=== PATIENT | female | born 1930 | race Caucasian/White ===

== ENCOUNTER → 2016-11-06 | Outpatient (CLI) | payer MEDICARE, BC ==
--- NOTE | 2016-11-06 15:46 | NM ---
EXAMINATION TYPE: NM bone scan whole body DATE OF EXAM: 11/06/2016 COMPARISON: NONE HISTORY: Left knee pain Delayed whole-body scanning was performed following the injection of 26.2 mCi Tc 99m MDP. Images wer e acquired 3 hours post injection. FINDINGS: There is diffuse increased radiotracer at the left knee. There is increased uptake within the bilateral shoulders compatible with degenerative change. Mild in creased uptake is at the wrist compatible with degenerative change. Degenerative changes also noted i n the scoliotic lumbar spine on the posterior right L1 and L3 region vertebral levels. IMPRESSION: 1. Increased uptake at the left knee can be compatible with degenerative change on infection posttrau matic changes. Correlation with plain films is recommended. There are no plain films of the left knee available at this location. 2. Probable degenerative changes bilateral shoulders and bilateral wrists.
== END | disposition home or self-care (01) ==
LOC: RADNMMAIN 09:43
PROVIDERS: ATTEND Orthopaedic Surgery
DX: M17.12 Unilateral primary osteoarthritis, left knee (principal); M21.062 Valgus deformity, not elsewhere classified, left knee; M19.012 Primary osteoarthritis, left shoulder
CPT/HCPCS: 78306; A9503

== ENCOUNTER → 2017-02-03 | Outpatient (CLI) | payer MEDICARE, BC ==
--- NOTE | 2017-02-03 14:18 | XR ---
EXAMINATION TYPE: XR pelvis AP view DATE OF EXAM: 02/03/2017 COMPARISON: NONE HISTORY: Groin pain history of multiple falls TECHNIQUE: AP pelvis FINDINGS: Femoral heads articulate with the acetabulum. No acute displaced fractures are evident. Deg enerative changes are within the lumbar spine. There is attempted sacralization of L5 on the right. IMPRESSION: 1. No acute osseous abnormality.
--- NOTE | 2017-02-03 15:17 | BD ---
EXAMINATION TYPE: MG DEXA axial skeleton. DATE OF EXAM: 02/03/2017 CLINICAL HISTORY: Abnormal x-ray. Post menopausal female. Height: 59 inches Weight: 143 FRAX RISK QUESTIONS: Alcohol (3 or more units per day): no Family History (Parent hip fracture): no Glucocorticoids (More than 3mos): no (Ex: prednisone, prednisolone, methylprednisolone, dexamethasone, and hydrocortisone). History of Fracture in Adulthood: no Secondary Osteoporosis: 1. Type 1 Diabetes: no 2. Hyperthyroidism: no 3. Menopause before 45: no, late 40's 4. Malnutrition: no 5. Chronic liver disease: no Rheumatoid Arthritis: no Current Tobacco Use: no RISK FACTORS HISTORY OF: Family History of Osteoporosis: unsure Active: somewhat-uses walker Diet low in dairy products/other sources of calcium: no Postmenopausal woman: yes Take estrogen and/or progesterone medications: not now How long: unsure Lost more than 2 inches in height since high school: yes Frequent falls: yes Poor Health: no Hyperparathyroidism: no Adrenal Insufficiency: no MEDICATIONS: Prednisone or other steroids: no Thyroid Medications: no Osteoporosis Medications: no Additional Medications: Omeprazole, MiraLax, VitaminD, Centrum, Amitriptyline HCl, Valsartan, Oxycodo ne-Acetaminophen, Metroprolol Succinate, Amlodipine Additional History: pelvic pain- pubic symphysis? arthritis, spinal stenosis lumbosacral region EXAM MEASUREMENTS: Bone mineral densitometry was performed using the [employer] System. Bone mineral density as measured about the Lumbar spine is: ----- L1-L4(G/cm2): 1.305 T Score Values are as follows: ----- L2: 1.0 ----- L3: 1.1 ----- L4: 0.4 ----- L1-L4: 1.0 Bone mineral density not previously done at this facility; previously done in [place] Bone mineral density about the R hip (g/cm2): 0.774 Bone mineral density about the L hip (g/cm2): 0.679 T Score values are as follows: -----R Neck: -1.9 -----L Neck: -2.6 -----R Total: -1.3 -----L Total: -1.9 Bone mineral density not previously done at this facility; previously done in [place] IMPRESSION: 1. Osteoporosis (T Score less than -2.5) as noted by T Score values with regards to the left hip There is increased fracture risk and therapy is usually indicated based on age. Re-Screen 1-2 years. 2. Osteopenia (T Score between -2.5 and -1 ) as noted by T score values with regards to the right hip . There is slightly increased risk of fracture and the patient may be considered for treatment. Re-Screen 2-5 years. NOTE: T-SCORE=SD OF THE YOUNG ADULT MEAN.
== END | disposition home or self-care (01) ==
LOC: RADBDWWP 13:01
PROVIDERS: ATTEND Family Medicine
DX: M85.88 Other specified disorders of bone density and structure, other site (principal); M81.0 Age-related osteoporosis without current pathological fracture; R10.2 Pelvic and perineal pain; Z88.0 Allergy status to penicillin; Z88.1 Allergy status to other antibiotic agents; Z88.2 Allergy status to sulfonamides; Z88.4 Allergy status to anesthetic agent; Z88.8 Allergy status to other drugs, medicaments and biological substances; Z91.041 Radiographic dye allergy status; Z91.048 Other nonmedicinal substance allergy status
CPT/HCPCS: 72170; 77080

== ENCOUNTER → 2020-07-19 | Outpatient (CLI) | payer MEDICARE, BC ==
[2020-07-19 22:51] LABS: Basophils # (A) 0.06 X 10*3/uL (0.00-0.10); Basophils % (A) 0.9 %; Eosinophils # (A) 0.06 X 10*3/uL (0.04-0.35); Eosinophils % (A) 0.9 %; HCT 33.5 % (37.2-46.3); HGB 10.2 g/dL (12.0-15.0); Lymphocytes # (A) 2.69 X 10*3/uL (0.90-5.00); Lymphocytes % (A) 39.9 %; MCH 27.2 pg (27.0-32.0); MCHC 30.4 g/dL (32.0-37.0); MCV 89.3 fL (80.0-97.0); Monocytes # (A) 0.37 X 10*3/uL (0.20-1.00); Monocytes % (A) 5.5 %; Neutrophils # (A) 3.53 X 10*3/uL (1.80-7.70); Neutrophils % (A) 52.4 %; Platelet Count 376 X 10*3/uL (140-440); RBC 3.75 X 10*6/uL (4.10-5.20); RDW 21.2 % (11.5-14.5); WBC 6.74 X 10*3/uL (4.50-10.00)
[2020-07-20 01:51] LABS: % Iron Saturation 38.15 (12.00-45.00)
[2020-07-20 02:45] LABS: Ferritin 314.8 ng/mL (10.0-291.0)
== END | disposition home or self-care (01) ==
LOC: LABWHC1 12:25
PROVIDERS: ATTEND Family Medicine
DX: D64.9 Anemia, unspecified (principal)
CPT/HCPCS: 36415; 82728; 83540; 83550; 85025

== ENCOUNTER 2020-09-09 16:10 | Emergency (ER) | payer MEDICARE, BC ==
[2020-09-09] MEDS ORDERED: ACETAMINOPHEN TAB 500 MG TAB PO STA (17:23)
[2020-09-09] MEDS ORDERED: IBUPROFEN 400 MG TAB PO STA (17:24)
[2020-09-09] MEDS ORDERED: SODIUM CHLORIDE 0.9% 500 ML 500 ML IV STA ×2 (17:25→18:18)
[2020-09-09 17:46] LABS: Basophils % (A) 1 %; Eosinophils % (A) 0 %; HCT 32.6 % (34.0-46.0); HGB 11.2 gm/dL (11.4-16.0); Lymphocytes % (A) 37 %; MCH 30.6 pg (25.0-35.0); MCHC 34.4 g/dL (31.0-37.0); MCV 88.8 fL (80.0-100.0); Mean Platelet Volume 7.6; Monocytes # (A) 0.2 k/uL (0-1.0); Monocytes % (A) 6 %; Neutrophils # (A) 1.3 k/uL (1.3-7.7); Neutrophils % (A) 53 %; Platelet Count 223 k/uL (150-450); RBC 3.67 m/uL (3.80-5.40); WBC 2.5 k/uL (3.8-10.6)
[2020-09-09 17:59] LABS: Partial Thromboplastin Time 24.8 sec (22.0-30.0); Prothrombin Time 10.6 sec (9.0-12.0)
[2020-09-09 18:04] LABS: ALT 15 U/L (4-34); AST 25 U/L (14-36); African American GFR (CKD) >90 (>60 ml/min/1.73 sqM); Albumin 4.6 g/dL (3.5-5.0); Alkaline Phosphatase 66 U/L (38-126); Anion Gap 13 mmol/L; Blood Urea Nitrogen 15 mg/dL (7-17); Calcium 9.1 mg/dL (8.4-10.2); Carbon Dioxide 28 mmol/L (22-30); Chloride 89 mmol/L (98-107); Glucose 162 mg/dL (74-99); LDH 523 U/L (313-618); Magnesium 1.4 mg/dL (1.6-2.3); Non-African American GFR(CKD) 89 (>60 ml/min/1.73 sqM); Potassium 3.5 mmol/L (3.5-5.1); Sodium 130 mmol/L (137-145); Total Bilirubin 0.4 mg/dL (0.2-1.3); Total Protein 7.4 g/dL (6.3-8.2)
--- NOTE | 2020-09-09 18:10 | XR ---
EXAMINATION TYPE: XR chest 1V portable DATE OF EXAM: 09/09/2020 COMPARISON: NONE HISTORY: Short of breath TECHNIQUE: Single view FINDINGS: Heart is normal. Lungs are clear of infiltrate. There is no heart failure. There are no hil ar masses. Costophrenic angles are fairly clear. Bony thorax is intact. There is moderate arthritic c hange in the shoulder joints bilaterally. IMPRESSION: No active cardiopulmonary disease. Minimal pulmonary fibrotic changes.
--- NOTE | 2020-09-09 18:22 | ED ---
URI HPI - General Chief Complaint: Upper Respiratory Infection Stated Complaint: Cough, congestion Time Seen by Provider: 09/09/20 17:02 Source: patient Mode of arrival: ambulatory Limitations: no limitations - History of Present Illness Initial Comments: Patient is an 89-year-old female with history of hypertension, presenting to the emergency Department with concerns of cough and congestion for the past 4 days. She denies any chest pains or shortness of breath. She denies any nausea or vomiting or abdominal pain. She states her appetite has been low but she has been trying to drink water. She denies history of asthma or COPD. She states she feels like the cough seems to be getting a little bit worse and she felt like she might have a fever today so she wanted to be seen. She did not take any Tylenol or Motrin today. She has no further complaints at this time. Upon arrival to the ER, she is febrile to 101.4, tachycardia at 118, 97% on room air. - Related Data Home Medications Medication Instructions Recorded Confirmed Amitriptyline HCl 4 tab PO DAILY 06/08/20 06/16/20 Ergocalciferol (Vitamin D2) 1 tab PO WEEKLY 06/08/20 06/16/20 [Drisdol] Losartan Potassium 1 tab PO DAILY 06/08/20 06/16/20 Meclizine HCl 1 tab PO DIRECTED PRN 06/08/20 06/16/20 Metoprolol Succinate (ER) [Toprol 12.5 mg PO DAILY 06/08/20 06/16/20 XL] Omeprazole 1 tab PO DAILY 06/08/20 06/16/20 amLODIPine [Norvasc] 1 tab PO DAILY 06/08/20 06/16/20 oxyCODONE-APAP 7.5-325MG [Percocet 1 tab PO QID PRN 06/08/20 06/16/20 7.5-325 mg] polyethylene glycoL 3350 [Miralax] 1 pkg PO DIRECTED PRN 06/08/20 06/16/20 Previous Rx's Medication Instructions Recorded Dexamethasone [Decadron] 6 mg PO DAILY 5 Days #5 tablet 09/09/20 Ondansetron Odt [Zofran Odt] 4 mg PO Q8HR PRN #10 tab 09/09/20 Allergies Allergy/AdvReac Type Severity Reaction Status Date / Time cephalexin [From Keflex] Allergy Itching Verified 09/09/20 16:16 hydrochlorothiazide Allergy Unknown Verified 09/09/20 16:16 iodine Allergy Unknown Verified 09/09/20 16:16 nystatin Allergy Rash/Hives Verified 09/09/20 16:16 Penicillins Allergy Swelling Verified 09/09/20 16:16 pregabalin [From Lyrica] Allergy Unknown Verified 09/09/20 16:16 ropinirole [From Requip] Allergy Unknown Verified 09/09/20 16:16 sulfamethoxazole Allergy Unknown Verified 09/09/20 16:16 [From Bactrim] triamcinolone [From Kenalog] Allergy Rash/Hives Verified 09/09/20 16:16 trimethoprim [From Bactrim] Allergy Unknown Verified 09/09/20 16:16 clindamycin AdvReac Diarrhea Verified 06/16/20 09:58 simvastatin [From Zocor] AdvReac Unknown Verified 06/16/20 09:58 Review of Systems ROS Statement: Those systems with pertinent positive or pertinent negative responses have been documented in the HPI. ROS Other: All systems not noted in ROS Statement are negative. Past Medical History Past Medical History: Hyperlipidemia, Hypertension, Osteoarthritis (OA) Past Surgical History: No Surgical Hx Reported Past Psychological History: No Psychological Hx Reported Smoking Status: Never smoker General Exam - General Exam Comments Initial Comments: GENERAL: Patient is well-developed and well-nourished. Patient is nontoxic and in no acute distress. HEAD: Atraumatic, normocephalic. EYES: Pupils equal round and reactive to light, extraocular movements intact, sclera anicteric, conjunctiva are normal. Eyelids were unremarkable. ENT: TMs normal, nares patent, oropharynx clear without exudates. Moist mucous membranes. NECK: Normal range of motion, supple without lymphadenopathy or JVD. LUNGS: Unlabored respirations. Breath sounds clear to auscultation bilaterally and equal. No wheezes rales or rhonchi. HEART: Tachycardia rate and rhythm without murmurs, rubs or gallops. ABDOMEN: Soft, nontender, normoactive bowel sounds. No guarding, no rebound. No masses appreciated. : Deferred MUSCULOSKELETAL: Normal extremities with adequate strength and normal range of motion, no pitting or edema. No clubbing or cyanosis. NEUROLOGICAL: Patient is alert and oriented x 3. Motor and sensory are also intact. Cranial nerves II through XII grossly intact. Symmetrical smile. Normal speech, normal gait. PSYCH: Normal mood, normal affect. SKIN: Warm, Dry, normal turgor, no rashes or lesions noted. Limitations: no limitations Course Vital Signs 09/09/20 09/09/20 09/09/20 16:12 19:14 20:09 Temperature 101.4 F H 98.7 F 99.3 F Pulse Rate 118 H 104 H 90 Respiratory 24 18 18 Rate Blood Pressure 159/89 180/93 160/79 O2 Sat by Pulse 97 98 97 Oximetry Medical Decision Making - Medical Decision Making Patient is an 89-year-old female here with cough and congestion for the past 4 days, concern for Covid. She did arrive febrile and tachycardia, 97% on room air. She denies any chest pain or shortness of breath. Chest x-ray shows no a cute process, minimal pulmonary fibrotic changes. Labs show a white count of 2.5, sodium was low at 130, lactic acid is 2.1, rapid Covid test is positive. Patient given Tylenol, Motrin and 1 L fluids, as well as PO magnesium. Patient does meet criteria for Covid antiviral therapy. Patient had no adverse side effects. Patient is stable for discharge. I will send her home with a prescription for steroids and Zofran for any additional nausea. She is in agreement with this plan of care. Strict return parameters were discussed with the patient she verbalized understanding. Case discussed with Dr. Valiente. - Lab Data Result diagrams: 09/09/20 17:31 09/09/20 17:31 Lab Results 09/09/20 09/09/20 09/09/20 Range/Units 17:03 17:31 17:31 WBC 2.5 L (3.8-10.6) k/uL RBC 3.67 L (3.80-5.40) m/uL Hgb 11.2 L (11.4-16.0) gm/dL Hct 32.6 L (34.0-46.0) % MCV 88.8 (80.0-100.0) fL MCH 30.6 (25.0-35.0) pg MCHC 34.4 (31.0-37.0) g/dL RDW 15.0 (11.5-15.5) % Plt Count 223 (150-450) k/uL MPV 7.6 Neutrophils % 53 % Lymphocytes % 37 % Monocytes % 6 % Eosinophils % 0 % Basophils % 1 % Neutrophils # 1.3 (1.3-7.7) k/uL Lymphocytes # 1.0 (1.0-4.8) k/uL Monocytes # 0.2 (0-1.0) k/uL Eosinophils # 0.0 (0-0.7) k/uL Basophils # 0.0 (0-0.2) k/uL PT 10.6 (9.0-12.0) sec INR 1.0 (<1.2) APTT 24.8 (22.0-30.0) sec Sodium (137-145) mmol/L Potassium (3.5-5.1) mmol/L Chloride (98-107) mmol/L Carbon Dioxide (22-30) mmol/L Anion Gap mmol/L BUN (7-17) mg/dL Creatinine (0.52-1.04) mg/dL Est GFR (CKD-EPI)AfAm (>60 ml/min/1.73 sqM) Est GFR (CKD-EPI)NonAf (>60 ml/min/1.73 sqM) Glucose (74-99) mg/dL Lactic Ac Sepsis Rflx Plasma Lactic Acid Peterson (0.7-2.0) mmol/L Calcium (8.4-10.2) mg/dL Magnesium (1.6-2.3) mg/dL Total Bilirubin (0.2-1.3) mg/dL AST (14-36) U/L ALT (4-34) U/L Alkaline Phosphatase (38-126) U/L Lactate Dehydrogenase (313-618) U/L C-Reactive Protein (<10.0) mg/L Total Protein (6.3-8.2) g/dL Albumin (3.5-5.0) g/dL Coronavirus (PCR) Detected A (Not Detectd) 09/09/20 09/09/20 09/09/20 Range/Units 17:31 17:31 18:13 WBC (3.8-10.6) k/uL RBC (3.80-5.40) m/uL Hgb (11.4-16.0) gm/dL Hct (34.0-46.0) % MCV (80.0-100.0) fL MCH (25.0-35.0) pg MCHC (31.0-37.0) g/dL RDW (11.5-15.5) % Plt Count (150-450) k/uL MPV Neutrophils % % Lymphocytes % % Monocytes % % Eosinophils % % Basophils % % Neutrophils # (1.3-7.7) k/uL Lymphocytes # (1.0-4.8) k/uL Monocytes # (0-1.0) k/uL Eosinophils # (0-0.7) k/uL Basophils # (0-0.2) k/uL PT (9.0-12.0) sec INR (<1.2) APTT (22.0-30.0) sec Sodium 130 L (137-145) mmol/L Potassium 3.5 (3.5-5.1) mmol/L Chloride 89 L (98-107) mmol/L Carbon Dioxide 28 (22-30) mmol/L Anion Gap 13 mmol/L BUN 15 (7-17) mg/dL Creatinine 0.46 L (0.52-1.04) mg/dL Est GFR (CKD-EPI)AfAm >90 (>60 ml/min/1.73 sqM) Est GFR (CKD-EPI)NonAf 89 (>60 ml/min/1.73 sqM) Glucose 162 H (74-99) mg/dL Lactic Ac Sepsis Rflx Y Plasma Lactic Acid Peterson 2.1 H* (0.7-2.0) mmol/L Calcium 9.1 (8.4-10.2) mg/dL Magnesium 1.4 L (1.6-2.3) mg/dL Total Bilirubin 0.4 (0.2-1.3) mg/dL AST 25 (14-36) U/L ALT 15 (4-34) U/L Alkaline Phosphatase 66 (38-126) U/L Lactate Dehydrogenase 523 (313-618) U/L C-Reactive Protein 10.0 H (<10.0) mg/L Total Protein 7.4 (6.3-8.2) g/dL Albumin 4.6 (3.5-5.0) g/dL Coronavirus (PCR) (Not Detectd) Disposition Clinical Impression: COVID-19, Dehydration Disposition: HOME SELF-CARE Condition: Stable Instructions (If sedation given, give patient instructions): Coronavirus Disease 2019 (COVID-19) Additional Instructions: Please return to the Emergency Department if symptoms worsen or any other concerns. Continue to increase fluid intake. Recommend alternating between Tylenol and Motrin for fever control. May take Zofran for any additional nausea. Take steriods as prescribed. Follow-up with your regular doctor. Prescriptions: Dexamethasone [Decadron] 6 mg PO DAILY 5 Days #5 tablet Ondansetron Odt [Zofran Odt] 4 mg PO Q8HR PRN #10 tab PRN Reason: Nausea Is patient prescribed a controlled substance at d/c from ED?: No Referrals: Mikhail Lewis III, MD [Primary Care Provider] - 1-2 days
[2020-09-09] MEDS ORDERED: BAMLANIVIMAB (EUA) 700 MG, ETESEVIMAB (EUA) 1,400 MG in SODIUM CHLORIDE 0.9% 50 ML IVPB ONE (18:30)
[2020-09-09] MEDS ORDERED: MAGNESIUM OXIDE 400 MG TAB PO STA (18:46)
[2020-09-09 19:16] VITALS: RESP 18
[2020-09-09 20:11] VITALS: BP 160/79; PULSE 90; TEMP 99.3
== END 2020-09-09 21:06 | disposition home or self-care (01) ==
LOC: EC 16:10
DX: U07.1 COVID-19 (principal); E86.0 Dehydration; E78.5 Hyperlipidemia, unspecified; I10 Essential (primary) hypertension; M19.90 Unspecified osteoarthritis, unspecified site; Z88.0 Allergy status to penicillin
CPT/HCPCS: 36415; 80053; 83605; 83615; 83735; 85025; 85610; 85730; 86140; 87040; 87635; 71045; 99283; 96365; Q0245

== ENCOUNTER 2020-09-18 17:23 | Inpatient (IN) | payer MEDICARE, BC ==
[2020-09-18] MEDS ORDERED: SODIUM CHLORIDE 0.9% 1,000 ML IV STA (18:05)
[2020-09-18] MEDS ORDERED: DICYCLOMINE 10 MG/ML 2 ML AMP IM STA (18:06)
--- NOTE | 2020-09-18 18:08 | ED ---
General Adult HPI - General Chief complaint: Nausea/Vomiting/Diarrhea Stated complaint: Weakness Time Seen by Provider: 09/18/20 17:32 Source: patient, EMS, RN notes reviewed Mode of arrival: EMS Limitations: no limitations - History of Present Illness Initial comments: Patient is a pleasant 89-year-old female presenting to the emergency department complaints of diarrhea. Patient states she did have corneal virus infection a couple weeks ago and other symptoms seem to be improving. No fever. Patient states she is having diarrhea at least 5 or 6 times per day. He should states there was one time she had an accident. Patient is feeling dehydrated. A cruz has occasional abdominal cramping with diarrhea. No vomiting. Patient does not recall recent antibiotic use. - Related Data Home Medications Medication Instructions Recorded Confirmed Amitriptyline HCl 40 tab PO HS 06/08/20 09/18/20 Ergocalciferol (Vitamin D2) 1,250 mcg PO Q7D 06/08/20 09/18/20 [Drisdol] Losartan Potassium 50 tab PO DAILY 06/08/20 09/18/20 Metoprolol Succinate (ER) [Toprol 12.5 mg PO DAILY 06/08/20 09/18/20 XL] Omeprazole 1 tab PO DAILY 06/08/20 09/18/20 amLODIPine [Norvasc] 5 tab PO DAILY 06/08/20 09/18/20 oxyCODONE-APAP 7.5-325MG [Percocet 1 tab PO QID PRN 06/08/20 09/18/20 7.5-325 mg] Ferrous Sulfate [Iron (65 MG 325 mg PO BID 09/18/20 09/18/20 Elemental)] Allergies Allergy/AdvReac Type Severity Reaction Status Date / Time cephalexin [From Keflex] Allergy Itching Verified 09/18/20 18:18 hydrochlorothiazide Allergy Dizziness Verified 09/18/20 18:18 iodine Allergy Unknown Verified 09/18/20 18:18 nystatin Allergy Rash/Hives Verified 09/18/20 18:18 Penicillins Allergy Swelling Verified 09/18/20 18:18 pregabalin [From Lyrica] Allergy Blurred Verified 09/18/20 18:18 Vision ropinirole [From Requip] Allergy Dizziness Verified 09/18/20 18:18 sulfamethoxazole Allergy Unknown Verified 09/18/20 18:18 [From Bactrim] triamcinolone [From Kenalog] Allergy Rash/Hives Verified 09/18/20 18:18 trimethoprim [From Bactrim] Allergy Unknown Verified 09/18/20 18:18 clindamycin AdvReac Diarrhea Verified 09/18/20 18:18 simvastatin [From Zocor] AdvReac Muscle Pain Verified 09/18/20 18:18 Review of Systems ROS Statement: Those systems with pertinent positive or pertinent negative responses have been documented in the HPI. ROS Other: All systems not noted in ROS Statement are negative. Constitutional: Denies: fever Eyes: Denies: eye pain ENT: Denies: ear pain Respiratory: Denies: cough, dyspnea Cardiovascular: Denies: chest pain Endocrine: Denies: fatigue Gastrointestinal: Reports: as per HPI, diarrhea. Denies: nausea, vomiting Genitourinary: Denies: dysuria Musculoskeletal: Denies: back pain Skin: Denies: rash Neurological: Denies: weakness Past Medical History Past Medical History: Hyperlipidemia, Hypertension, Osteoarthritis (OA) History of Any Multi-Drug Resistant Organisms: None Reported Past Surgical History: No Surgical Hx Reported Past Psychological History: No Psychological Hx Reported Smoking Status: Never smoker Past Alcohol Use History: None Reported Past Drug Use History: None Reported General Exam Limitations: no limitations General appearance: alert, in no apparent distress Head exam: Present: normocephalic Eye exam: Present: normal appearance Neck exam: Present: normal inspection Respiratory exam: Present: normal lung sounds bilaterally Cardiovascular Exam: Present: tachycardia GI/Abdominal exam: Present: soft, normal bowel sounds. Absent: tenderness, pulsatile mass Extremities exam: Present: normal inspection Neurological exam: Present: alert Psychiatric exam: Present: normal affect, normal mood Skin exam: Present: normal color Course Vital Signs 09/18/20 09/18/20 09/18/20 17:28 17:39 19:32 Temperature 98.1 F Pulse Rate 124 H 116 H 120 H Respiratory 18 18 18 Rate Blood Pressure 125/71 135/90 145/89 O2 Sat by Pulse 97 97 97 Oximetry Medical Decision Making - Medical Decision Making Family is concerned regarding patient having some generalized weakness. Patient does have some evidence of dehydration. There is elevation of white blood cell count. Patient remains tachycardic. Case was discussed with Dr. kelly, who will admit covering for Dr. Lewis. He does request stool studies and C. diff. IV fluids will be continued on repeat labs in the morning. Abdomen remained soft and nontender Dr. kelly agrees with holding on computed tomography scan at this time. - Lab Data Result diagrams: 09/18/20 18:07 09/18/20 18:07 Lab Results 09/18/20 09/18/20 Range/Units 18:07 18:07 WBC 22.5 H (3.8-10.6) k/uL RBC 3.28 L (3.80-5.40) m/uL Hgb 9.6 L D (11.4-16.0) gm/dL Hct 30.5 L (34.0-46.0) % MCV 93.0 (80.0-100.0) fL MCH 29.2 (25.0-35.0) pg MCHC 31.4 (31.0-37.0) g/dL RDW 16.7 H (11.5-15.5) % Plt Count 501 H D (150-450) k/uL MPV 8.1 Neutrophils % 92 % Lymphocytes % 2 % Monocytes % 4 % Eosinophils % 0 % Basophils % 1 % Neutrophils # 20.6 H (1.3-7.7) k/uL Lymphocytes # 0.5 L (1.0-4.8) k/uL Monocytes # 1.0 (0-1.0) k/uL Eosinophils # 0.0 (0-0.7) k/uL Basophils # 0.2 (0-0.2) k/uL Hypochromasia Slight Anisocytosis Slight Sodium 128 L (137-145) mmol/L Potassium 4.1 (3.5-5.1) mmol/L Chloride 93 L (98-107) mmol/L Carbon Dioxide 21 L (22-30) mmol/L Anion Gap 14 mmol/L BUN 16 (7-17) mg/dL Creatinine 0.43 L (0.52-1.04) mg/dL Est GFR (CKD-EPI)AfAm >90 (>60 ml/min/1.73 sqM) Est GFR (CKD-EPI)NonAf >90 (>60 ml/min/1.73 sqM) Glucose 167 H (74-99) mg/dL Calcium 9.1 (8.4-10.2) mg/dL Total Bilirubin 0.8 (0.2-1.3) mg/dL AST 29 (14-36) U/L ALT 27 (4-34) U/L Alkaline Phosphatase 92 (38-126) U/L Total Protein 6.5 (6.3-8.2) g/dL Albumin 3.8 (3.5-5.0) g/dL Disposition Clinical Impression: Dehydration, COVID-19, Diarrhea Disposition: ADMITTED IP TO THIS HOSP Is patient prescribed a controlled substance at d/c from ED?: No Referrals: Mikhail Lewis III, MD [Primary Care Provider] - 1-2 days Decision Time: 20:49
[2020-09-18 18:42] LABS: ALT 27 U/L (4-34); AST 29 U/L (14-36); African American GFR (CKD) >90 (>60 ml/min/1.73 sqM); Albumin 3.8 g/dL (3.5-5.0); Alkaline Phosphatase 92 U/L (38-126); Anion Gap 14 mmol/L; Blood Urea Nitrogen 16 mg/dL (7-17); Calcium 9.1 mg/dL (8.4-10.2); Carbon Dioxide 21 mmol/L (22-30); Chloride 93 mmol/L (98-107); Glucose 167 mg/dL (74-99); Non-African American GFR(CKD) >90 (>60 ml/min/1.73 sqM); Potassium 4.1 mmol/L (3.5-5.1); Sodium 128 mmol/L (137-145); Total Bilirubin 0.8 mg/dL (0.2-1.3); Total Protein 6.5 g/dL (6.3-8.2)
[2020-09-18 18:47] LABS: Anisocytosis Slight; Basophils # (A) 0.2 k/uL (0-0.2); Basophils % (A) 1 %; Eosinophils % (A) 0 %; HCT 30.5 % (34.0-46.0); Hypochromasia Slight; Lymphocytes # (A) 0.5 k/uL (1.0-4.8); Lymphocytes % (A) 2 %; MCH 29.2 pg (25.0-35.0); MCHC 31.4 g/dL (31.0-37.0); Mean Platelet Volume 8.1; Monocytes % (A) 4 %; Neutrophils # (A) 20.6 k/uL (1.3-7.7); Neutrophils % (A) 92 %; RBC 3.28 m/uL (3.80-5.40); RDW 16.7 % (11.5-15.5); WBC 22.5 k/uL (3.8-10.6)
[2020-09-18 18:50] LABS: HGB 9.6 gm/dL (11.4-16.0); Platelet Count 501 k/uL (150-450)
[2020-09-18] MEDS ORDERED: NALOXONE 0.4 MG/ML 1 ML VIAL IV PRN (20:49)
[2020-09-18] MEDS ORDERED: SODIUM CHLORIDE 0.9% 1,000 ML IV SCH (21:00)
[2020-09-18] MEDS: FAMOTIDINE 20 MG TAB PO SCH (22:01)
[2020-09-18] MEDS ORDERED: MORPHINE SULFATE 2 MG/ML SYRINGE IVP PRN (22:30)
[2020-09-18] MEDS ORDERED: oxyCODONE-APAP 7.5-325MG 1 EACH TAB PO PRN (22:31)
[2020-09-18] MEDS ORDERED: LEVOFLOXACIN 500MG-D5W PMX 500 MG in DEXTROSE/WATER 1 100ML.BAG IVPB SCH (23:00)
[2020-09-18] MEDS: PANTOPRAZOLE 40 MG/10 ML VIAL IVP SCH (23:14)
--- NOTE | 2020-09-18 23:58 | CT ---
EXAMINATION TYPE: CT abdomen pelvis wo con DATE OF EXAM: 09/18/2020 COMPARISON: None HISTORY: abdominal pain and dehydration. no prior on PACS CT DLP: 466 mGycm Automated exposure control for dose reduction was used. There is some patchy infiltrates in the subpleural lower lobes bilaterally. There is no pleural effus ion. There is moderate hiatal hernia. Heart size is normal. There is no pericardial effusion. There is small calcified granuloma in the liver. There are small calcified gallstones. Spleen is inta ct. There is no pancreatic mass. There is 1.5 cm low-density nodule on the left adrenal gland likely benign. There is high density 1.5 cm cyst on the posterior right kidney that is cyst containing calcium. There is similar 5 mm focus o n the lateral right kidney. Ureters are not dilated. There is no hydronephrosis. There is no retroper itoneal adenopathy. Bladder distends smoothly. There is no inguinal hernia. There is retained fecal material in the rectu m that measures 6.8 cm. There is perirectal edema. There is presacral fluid. There are sigmoid divert icula. No sign of diverticulitis. There is lower abdominal ventral hernia that contains omental fat o n the left side of midline. This measures 5.6 x 3.3 cm. IMPRESSION: Rectal fecal impaction with perirectal edema. Hiatal hernia. Patchy bilateral subpleural pulmonary interstitial and airspace infiltrates. Ventral hernia. Complex right renal cysts that contain calcium. Low-density left adrenal nodule is li darian benign. Colonic diverticulosis.
[2020-09-19] MEDS: SODIUM CHLORIDE 0.9% 1,000 ML IV SCH ×2 (00:51→09:26)
[2020-09-19] MEDS: metroNIDAZOLE-NS PMX 500 MG in SALINE 1 100ML.BAG IVPB SCH ×3 (00:52→17:41)
[2020-09-19] MEDS: PANTOPRAZOLE 40 MG/10 ML VIAL IVP SCH (09:21)
[2020-09-19] MEDS: METOPROLOL TARTRATE 12.5 MG TAB PO SCH (09:24)
[2020-09-19] MEDS: HEPARIN SODIUM,PORCINE/PF 5,000 UNIT/0.5 ML SYRINGE SQ SCH ×2 (09:24→20:22)
[2020-09-19] MEDS: FAMOTIDINE 20 MG TAB PO SCH ×2 (09:24→20:22)
[2020-09-19 09:26] LABS: Basophils # (A) 0.01 X 10*3/uL (0.00-0.10); Basophils % (A) 0.1 %; Eosinophils # (A) 0.02 X 10*3/uL (0.04-0.35); Eosinophils % (A) 0.1 %; HCT 24.4 % (37.2-46.3); Lymphocytes # (A) 1.34 X 10*3/uL (0.90-5.00); Lymphocytes % (A) 9.9 %; MCH 31.4 pg (27.0-32.0); MCHC 32.8 g/dL (32.0-37.0); MCV 95.7 fL (80.0-97.0); Mean Platelet Volume 10.6 fL (9.5-12.2); Monocytes # (A) 1.06 X 10*3/uL (0.20-1.00); Monocytes % (A) 7.8 %; Neutrophils # (A) 10.86 X 10*3/uL (1.80-7.70); Neutrophils % (A) 80.4 %; Platelet Count 420 X 10*3/uL (140-440); RBC 2.55 X 10*6/uL (4.10-5.20); RDW 14.5 % (11.5-14.5); WBC 13.52 X 10*3/uL (4.50-10.00)
[2020-09-19] MEDS ORDERED: bisacodyL 10 MG SUPP RECTAL STA (10:55)
[2020-09-19] MEDS: ZINC SULFATE 220 MG CAP PO SCH (12:03)
--- NOTE | 2020-09-19 13:08 | P.HPIM ---
History of Present Illness Pleasant 89-year-old female was brought into emergency department with complaints of diarrhea patient is hyponatremic patient was started on IV fluids. Patient the had a CT of the abdomen because of some abdominal pain and diarrhea and CT of the abdomen did show some impaction in the rectal area with some rectal edema. Patient is clinically dehydrated. Patient doesn't have any shortness of breath doesn't have any other symptoms of Covid 19 patient was diagnosed with Covid 19 and did receive monoclonal antibody infusion. Review of Systems REVIEW OF SYSTEMS: CONSTITUTIONAL: No fever, no malaise, no fatigue. HEENT: No recent visual problems or hearing problems. Denied any sore throat. CARDIOVASCULAR: No chest pain, orthopnea, PND, no palpitations, no syncope. PULMONARY: No shortness of breath, no cough, no hemoptysis. GASTROINTESTINAL: As mentioned in HPI NEUROLOGICAL: No headaches, no weakness, no numbness. HEMATOLOGICAL: Denies any bleeding or petechiae. GENITOURINARY: Denies any burning micturition, frequency, or urgency. MUSCULOSKELETAL/RHEUMATOLOGICAL: Denies any joint pain, swelling, or any muscle pain. ENDOCRINE: Denies any polyuria or polydipsia. Patient is bit of poor historian because of her hearing problems The rest of the 14-point review of systems is negative. Past Medical History Past Medical History: Hyperlipidemia, Hypertension, Osteoarthritis (OA) History of Any Multi-Drug Resistant Organisms: None Reported Past Surgical History: No Surgical Hx Reported Past Anesthesia/Blood Transfusion Reactions: No Reported Reaction Past Psychological History: No Psychological Hx Reported Smoking Status: Never smoker Past Alcohol Use History: None Reported Past Drug Use History: None Reported Medications and Allergies Home Medications Medication Instructions Recorded Confirmed Type Amitriptyline HCl 40 tab PO HS 06/08/20 09/18/20 History Ergocalciferol (Vitamin D2) 1,250 mcg PO Q7D 06/08/20 09/18/20 History [Drisdol] Losartan Potassium 50 tab PO DAILY 06/08/20 09/18/20 History Metoprolol Succinate (ER) [Toprol 12.5 mg PO DAILY 06/08/20 09/18/20 History XL] Omeprazole 1 tab PO DAILY 06/08/20 09/18/20 History amLODIPine [Norvasc] 5 tab PO DAILY 06/08/20 09/18/20 History oxyCODONE-APAP 7.5-325MG [Percocet 1 tab PO QID PRN 06/08/20 09/18/20 History 7.5-325 mg] Ferrous Sulfate [Iron (65 MG 325 mg PO BID 09/18/20 09/18/20 History Elemental)] Allergies Allergy/AdvReac Type Severity Reaction Status Date / Time cephalexin [From Keflex] Allergy Itching Verified 09/18/20 18:18 hydrochlorothiazide Allergy Dizziness Verified 09/18/20 18:18 iodine Allergy Unknown Verified 09/18/20 18:18 nystatin Allergy Rash/Hives Verified 09/18/20 18:18 Penicillins Allergy Swelling Verified 09/18/20 18:18 pregabalin [From Lyrica] Allergy Blurred Verified 09/18/20 18:18 Vision ropinirole [From Requip] Allergy Dizziness Verified 09/18/20 18:18 sulfamethoxazole Allergy Unknown Verified 09/18/20 18:18 [From Bactrim] triamcinolone [From Kenalog] Allergy Rash/Hives Verified 09/18/20 18:18 trimethoprim [From Bactrim] Allergy Unknown Verified 09/18/20 18:18 clindamycin AdvReac Diarrhea Verified 09/18/20 18:18 simvastatin [From Zocor] AdvReac Muscle Pain Verified 09/18/20 18:18 Physical Exam Vitals: Vital Signs Temp Pulse Pulse Resp BP BP Pulse Ox 09/19/20 10:00 98.2 F 111 H 16 134/73 98 09/19/20 08:00 16 09/19/20 06:10 98.7 F 107 H 123/69 96 09/19/20 02:00 98.2 F 121 H 128/76 96 09/18/20 22:04 18 09/18/20 21:58 99.4 F 115 H 154/84 97 09/18/20 21:03 98.0 F 122 H 18 154/84 96 09/18/20 19:32 120 H 18 145/89 97 09/18/20 17:39 116 H 18 135/90 97 09/18/20 17:28 98.1 F 124 H 18 125/71 97 Intake and Output 09/18/20 09/19/20 09/19/20 22:59 06:59 14:59 Output Total 1200 Balance -1200 Output: Urine 1200 Straight 1200 Other: Voiding Method Toilet Toilet Weight 64.864 kg 55.5 kg PHYSICAL EXAMINATION: GENERAL: The patient is alert and oriented x3, not in any acute distress. Well developed, well nourished. Significant age-related hearing issues HEENT: Pupils are round and equally reacting to light. EOMI. No scleral icterus. No conjunctival pallor. Normocephalic, atraumatic. No pharyngeal erythema. No thyromegaly. CARDIOVASCULAR: S1 and S2 present. No murmurs, rubs, or gallops. PULMONARY: Chest is clear to auscultation, no wheezing or crackles. ABDOMEN: Soft, nontender, nondistended, normoactive bowel sounds. No palpable organomegaly. MUSCULOSKELETAL: No joint swelling or deformity. EXTREMITIES: No cyanosis, clubbing, or pedal edema. NEUROLOGICAL: Gross neurological examination did not reveal any focal deficits. SKIN: No rashes. Results CBC & Chem 7: 09/19/20 04:24 09/18/20 18:07 Labs: Abnormal Lab Results - Last 24 Hours (Table) 09/18/20 09/18/20 09/19/20 Range/Units 18:07 18:07 04:24 WBC 22.5 H 13.52 H (3.8-10.6) k/uL RBC 3.28 L 2.55 L (3.80-5.40) m/uL Hgb 9.6 L D 8.0 L (11.4-16.0) gm/dL Hct 30.5 L 24.4 L (34.0-46.0) % RDW 16.7 H (11.5-15.5) % Plt Count 501 H D (150-450) k/uL Absolute Nucleated RBC 0.04 H (0.00-0.00) X 10*3/uL Immature Gran # 0.23 H (0.00-0.04) X 10*3/uL Neutrophils # 20.6 H 10.86 H (1.3-7.7) k/uL Lymphocytes # 0.5 L (1.0-4.8) k/uL Monocytes # 1.06 H (0.20-1.00) X 10*3/uL Eosinophils # 0.02 L (0.04-0.35) X 10*3/uL NRBC/100 WBC Diff 0.3 H (0.0-0.0) /100 WBCS Sodium 128 L (137-145) mmol/L Chloride 93 L (98-107) mmol/L Carbon Dioxide 21 L (22-30) mmol/L Creatinine 0.43 L (0.52-1.04) mg/dL Glucose 167 H (74-99) mg/dL Procalcitonin (0.02-0.09) ng/mL 09/19/20 Range/Units 04:24 WBC (3.8-10.6) k/uL RBC (3.80-5.40) m/uL Hgb (11.4-16.0) gm/dL Hct (34.0-46.0) % RDW (11.5-15.5) % Plt Count (150-450) k/uL Absolute Nucleated RBC (0.00-0.00) X 10*3/uL Immature Gran # (0.00-0.04) X 10*3/uL Neutrophils # (1.3-7.7) k/uL Lymphocytes # (1.0-4.8) k/uL Monocytes # (0.20-1.00) X 10*3/uL Eosinophils # (0.04-0.35) X 10*3/uL NRBC/100 WBC Diff (0.0-0.0) /100 WBCS Sodium (137-145) mmol/L Chloride (98-107) mmol/L Carbon Dioxide (22-30) mmol/L Creatinine (0.52-1.04) mg/dL Glucose (74-99) mg/dL Procalcitonin 0.13 H (0.02-0.09) ng/mL Microbiology - Last 24 Hours (Table) 09/18/20 21:12 Stool Culture - Preliminary Stool Thrombosis Risk Factor Assmnt - Choose All That Apply Each Factor Represents 1 point: Obesity (BMI >25) Each Risk Factor Represents 3 Points: Age 75 years or older Thrombosis Risk Factor Assessment Total Risk Factor Score: 4 Thrombosis Risk Factor Assessment Level: Moderate Risk Assessment and Plan Plan: -Hypovolemic hyponatremia: Secondary to diarrhea and poor by mouth intake: Patient will be continued on IV fluids will recheck a basic metabolic profile tomorrow -Stool impaction: In spite of diarrhea patient does have stool impaction patient probably has post impaction diarrhea. We will use Dulcolax suppository if that doesn't work we'll try soapsuds enema and if that doesn't work patient will need manual fecal disimpaction. Hold off on the Percocet that patient is taking at home -Tachycardia will obtain TSH and this is probably because of diarrhea dehydration intravascular depletion continue with IV fluids will continue to monitor heart rate. Continue to stay high then PE need to be considered patient is presently on DVT prophylaxis with Lovenox -Leukocytosis reactive: C. diff is negative no other evidence of infection at this time patient a lot require any antibiotics -Recent Covid 19 patient is presently have not hypoxic chest x-ray did not show any significant abnormality patient will not require any systemic steroids patient although will be started on cold vitamins -Hyperlipidemia -Hypertension -DVT prophylaxis as mentioned above
[2020-09-19] MEDS: KETOROLAC 15 MG/ML 1 ML VIAL IVP PRN (17:07)
[2020-09-19 18:48] LABS: African American GFR (CKD) 107.8 (60.0-200.0); Albumin 3.6 g/dL (3.80-4.90); Albumin/Globulin Ratio 2.12 (1.60-3.17); BUN/Creat Ratio 22.5 Ratio (12.00-20.00); Calcium 8.4 mg/dL (8.7-10.3); Globulin 1.7 g/dL (1.6-3.3); Magnesium 1.6 mg/dL (1.5-2.4); Potassium 3.5 mmol/L (3.5-5.5); Total Bilirubin 0.9 mg/dL (0.3-1.2); Total Protein 5.3 g/dL (6.2-8.2)
[2020-09-19] MEDS: AMITRIPTYLINE HCL 10 MG TAB PO SCH (20:22)
[2020-09-19] MEDS: ASCORBIC ACID 500 MG TAB PO SCH (20:22)
[2020-09-19] MEDS: LEVOFLOXACIN 500 MG TAB PO SCH (20:22)
[2020-09-20] MEDS: KETOROLAC 15 MG/ML 1 ML VIAL IVP PRN ×4 (00:49→23:22)
[2020-09-20] MEDS: metroNIDAZOLE-NS PMX 500 MG in SALINE 1 100ML.BAG IVPB SCH ×4 (00:50→23:22)
[2020-09-20] MEDS: SODIUM CHLORIDE 0.9% 1,000 ML IV SCH ×2 (03:37→16:49)
[2020-09-20] MEDS: ASCORBIC ACID 500 MG TAB PO SCH ×2 (07:47→20:17)
[2020-09-20] MEDS: FAMOTIDINE 20 MG TAB PO SCH ×2 (07:47→20:17)
[2020-09-20] MEDS: METOPROLOL TARTRATE 12.5 MG TAB PO SCH (07:47)
[2020-09-20] MEDS: ZINC SULFATE 220 MG CAP PO SCH (07:48)
[2020-09-20] MEDS: PANTOPRAZOLE 40 MG/10 ML VIAL IVP SCH ×2 (07:48→20:17)
[2020-09-20] MEDS ORDERED: ENOXAPARIN 30 MG/0.3 ML SYRINGE SQ SCH (09:00)
[2020-09-20 12:30] LABS: African American GFR (CKD) 100.2 (60.0-200.0); Anion Gap 9.8 mmol/L (4.00-12.00); Calcium 8.4 mg/dL (8.7-10.3); Carbon Dioxide 26.2 mmol/L (21.6-31.8); Non-African American GFR(CKD) 86.4 (60.0-200.0)
[2020-09-20] MEDS ORDERED: Potassium Replacement Protocol 1 EACH MISC MISCELLANE PRN (12:52)
[2020-09-20] MEDS: POTASSIUM CHLORIDE ER 20 MEQ TAB.ER PO SCH ×2 (13:09→14:28)
--- NOTE | 2020-09-20 13:34 | P.PN ---
Subjective Patient is admitted for severe dehydration and hyponatremia and stool impaction in the rectum along with edema and inflammation of the rectum. Patient had low- grade fever today patient was started on metronidazole for overnight physician because of concerns of inflation inflammation and infection in the rectal area. I will obtain septic workup including chest x-ray to rule out pneumonia, urinalysis, urine cultures and blood cultures will not change any antibiotics at this time. Constitutional: Denied any fatigue denied any fever. Cardio vascular: denied any chest pain, palpitations Gastrointestinal as mentioned above Pulmonary: Denied any shortness of breath cough Neurologic denied any new focal deficits All inpatient medications were reviewed and appropriate changes in these medications as dictated in the interval history and assessment and plan. Objective - Vital Signs Vital signs: Vital Signs Temp 100.1 F H 09/20/20 10:19 Pulse 101 H 09/20/20 10:19 Resp 17 09/20/20 07:10 BP 133/69 09/20/20 10:19 Pulse Ox 98 09/20/20 10:19 Intake & Output 09/19/20 09/20/20 09/20/20 18:59 06:59 18:59 Other: Voiding Method Toilet Toilet Toilet # Voids 1 1 # Bowel Movements 1 3 - Exam PHYSICAL EXAMINATION: GENERAL: The patient is alert and oriented x3, not in any acute distress. Well developed, well nourished. Significant age-related hearing issues HEENT: Pupils are round and equally reacting to light. EOMI. No scleral icterus. No conjunctival pallor. Normocephalic, atraumatic. No pharyngeal erythema. No thyromegaly. CARDIOVASCULAR: S1 and S2 present. No murmurs, rubs, or gallops. PULMONARY: Chest is clear to auscultation, no wheezing or crackles. ABDOMEN: Soft, nontender, nondistended, normoactive bowel sounds. No palpable organomegaly. MUSCULOSKELETAL: No joint swelling or deformity. EXTREMITIES: No cyanosis, clubbing, or pedal edema. NEUROLOGICAL: Gross neurological examination did not reveal any focal deficits. SKIN: No rashes. - Labs CBC & Chem 7: 09/19/20 04:24 09/20/20 05:33 Labs: Abnormal Lab Results - Last 24 Hours (Table) 09/18/20 09/19/20 09/20/20 Range/Units 21:12 04:24 05:33 Sodium 133 L (135-145) mmol/L Potassium 3.0 L (3.5-5.5) mmol/L Carbon Dioxide 21.0 L (21.6-31.8) mmol/L BUN 6.0 L (9.0-27.0) mg/dL Creatinine 0.4 L 0.5 L (0.6-1.5) mg/dL BUN/Creatinine Ratio 22.50 H (12.00-20.00) Ratio Glucose 139 H 116 H (70-110) mg/dL Calcium 8.4 L 8.4 L (8.7-10.3) mg/dL Total Protein 5.3 L (6.2-8.2) g/dL Albumin 3.60 L (3.80-4.90) g/dL Stool Lactoferrin POSITIVE A (NEGATIVE) Microbiology - Last 24 Hours (Table) 09/18/20 21:12 Stool Culture - Preliminary Stool Assessment and Plan Plan: -Hypovolemic hyponatremia: Secondary to diarrhea and poor by mouth intake: Improved with IV fluids which will be continued -Stool impaction: Improved patient had multiple bowel movements. Patient does have perirectal inflammation. He have episodes of fever for which we'll obtain septic workup as mentioned above and also continue metronidazole for now with concerns infection in the perirectal area , discontinue narcotics -Tachycardia due to dehydration improving with improvement of dehydration patient heart rate has come down TSH within normal limits -Leukocytosis reactive: C. diff is negative. -Recent Covid 19 patient is presently have not hypoxic chest x-ray did not show any significant abnormality patient will not require any systemic steroids patient although will be started on cold vitamins -Hyperlipidemia -Hypertension -DVT prophylaxis as mentioned above
--- NOTE | 2020-09-20 14:00 | XR ---
EXAMINATION TYPE: XR chest 2V DATE OF EXAM: 09/20/2020 COMPARISON: Chest x-ray September 09, 2020. CT abdomen and pelvis 2 days ago. HISTORY: Pneumonia. Abnormal CT. TECHNIQUE: Frontal and lateral views of the chest are obtained. FINDINGS: There is persistent low lung volume due to chronic parenchymal changes with multifocal are as of increased opacity in the current study versus prior x-ray. The cardiac silhouette size is stab le and upper limits of normal with ectatic thoracic aorta causing right-sided tracheal deviation. Adv anced degenerative change bilateral glenohumeral joints. IMPRESSION: Low lung volumes and chronic changes with bilateral multifocal opacities on current stud y. Correlate for covid-19 infection.
--- NOTE | 2020-09-20 14:38 | CONS ---
CONSULTATION DATE OF DICTATION: September 20, 2020 REASON FOR CONSULTATION: Abdominal pain, black tarry stools and anemia. HISTORY OF PRESENT ILLNESS: The patient is an 89-year-old pleasant white female who was admitted to the hospital yesterday when she presented to the emergency room with abdominal discomfort mostly in the epigastric and lower abdominal area followed by some black tarry stools. The patient states that she had black stools for about a day or 2 at home and in the ER, she had a CT of the abdomen and pelvis done that showed evidence of fecal impaction and some rectal edema. She was given some suppositories yesterday and had several bowel movements through the night and this morning and there was no evidence of further bleeding. Her initial hemoglobin was 10.5 g/dL and this morning it is down to 8 g/dL. She denies any nausea, vomiting. Has been taking Aleve at home for chronic back pain. PAST MEDICAL HISTORY: Significant for hypertension, degenerative joint disease, gastroesophageal reflux disease and hyperlipidemia. PAST SURGICAL HISTORY: None, has remote history of colonoscopy several years ago. MEDICATIONS: Medications at home include amitriptyline, vitamin D2, losartan, Toprol, omeprazole, Norvasc, Percocet, and iron sulfate. ALLERGIES: Allergies to KEFLEX, HYDROCHLOROTHIAZIDE, NYSTATIN, PENICILLIN, LYRICA, REQUIP, BACTRIM, ZOCOR, and KENALOG. SOCIAL HISTORY: No smoking. No alcohol use. FAMILY HISTORY: Unremarkable. REVIEW OF SYSTEMS: CARDIOPULMONARY: She denies any chest pain or shortness of breath. GENITOURINARY: No dysuria or hematuria. MUSCULOSKELETAL: Does complain of some arthritis in the back. NEUROLOGY: Unremarkable. PSYCHIATRIC: Unremarkable. ENT/VISION: Unremarkable. CONSTITUTIONAL: No recent weight loss. No fever, chills, night sweats. GI: As mentioned above. The patient also complains of some constipation prior to the onset of all these symptoms. PHYSICAL EXAMINATION: She appears comfortable. No apparent distress. Vital signs are stable. Blood pressure is 133/82, pulse rate 85 per minute and afebrile. The T-max was 100.1. HEENT EXAMINATION: Unremarkable. Conjunctivae pink. Sclerae anicteric. Oral cavity, no lesions. NECK: No JVD or lymph node enlargement. CHEST: Clear to auscultation. HEART: Regular rate and rhythm. ABDOMEN: Was soft. There was very minimal tenderness in the epigastric area. Rest of the abdomen was benign. Bowel sounds are positive. No organomegaly. EXTREMITIES: No pedal edema. NEURO: She is alert and oriented x3. No focal deficits. LABS: Labs from yesterday: WBC is 22.5, hemoglobin 9.6, and platelets 501. Today hemoglobin is 8.1. BUN and creatinine are 14 and 0.43 respectively. AST, ALT, T bilirubin and alkaline phosphatase are normal. Stool C difficile toxin is negative. CT of the abdomen and pelvis done in the emergency room did show evidence of fecal impaction with perirectal edema, evidence of small hiatal hernia, bilateral patchy pulmonary interstitial infiltrates and a small ventral hernia as well as colonic diverticulosis. IMPRESSION: 1. Black tarry stools and anemia of 2 days duration. Dropped hemoglobin from 10 to 8 g/dL. Rule out upper GI source of bleeding. 2. Chronic constipation with fecal impaction. The patient is CT of the abdomen showed rectal edema as well as fecal impaction. Presently, she receiving Dulcolax suppositories and she is feeling much better. 3. Recent COVID-19 infection diagnosed 10 days ago. The patient is currently asymptomatic. 4. History of hypertension and hyperlipidemia. RECOMMENDATIONS: 1. Monitor CBC daily. 2. Continue with Protonix 40 mg twice daily. 3. We will proceed with an upper endoscopy tomorrow. Discussed with the patient risks, benefits and complications and she is agreeable to it. 4. Continue with symptomatic and supportive care. 5. We will follow with you closely. Thank you for this consultation. MMODL / IJN: [id number] /
[2020-09-20 16:38] LABS: Appearance,Urine Clear (Clear); Bilirubin,Urine Negative (Negative); Blood,Urine Negative (Negative); Color,Urine Light Yellow; Glucose,Urine (UA) Negative (Negative); Ketones,Urine Trace (Negative); Leukocyte Esterase,Urine Negative (Negative); Nitrite,Urine Negative (Negative); Protein,Urine Negative (Negative); Urobilinogen,Urine <2.0 mg/dL (<2.0)
[2020-09-20] MEDS: AMITRIPTYLINE HCL 10 MG TAB PO SCH (20:17)
[2020-09-20] MEDS: LEVOFLOXACIN 500 MG TAB PO SCH (20:17)
[2020-09-21] MEDS: SODIUM CHLORIDE 0.9% 1,000 ML IV SCH (03:57)
[2020-09-21 06:11] VITALS: RESP 18
[2020-09-21] MEDS: FAMOTIDINE 20 MG TAB PO SCH (07:16)
[2020-09-21] MEDS: ASCORBIC ACID 500 MG TAB PO SCH (07:16)
[2020-09-21] MEDS: ZINC SULFATE 220 MG CAP PO SCH (07:17)
[2020-09-21] MEDS: PANTOPRAZOLE 40 MG/10 ML VIAL IVP SCH (07:59)
[2020-09-21] MEDS: METOPROLOL TARTRATE 12.5 MG TAB PO SCH (08:00)
[2020-09-21] MEDS: metroNIDAZOLE-NS PMX 500 MG in SALINE 1 100ML.BAG IVPB SCH (08:00)
[2020-09-21 11:00] LABS: HCT 23.9 % (37.2-46.3); HGB 8.2 g/dL (12.0-15.0); MCH 32.7 pg (27.0-32.0); MCHC 34.3 g/dL (32.0-37.0); MCV 95.2 fL (80.0-97.0); Mean Platelet Volume 10.2 fL (9.5-12.2); Platelet Count 421 X 10*3/uL (140-440); RBC 2.51 X 10*6/uL (4.10-5.20); RDW 14.4 % (11.5-14.5); WBC 5.81 X 10*3/uL (4.50-10.00)
[2020-09-21 12:09] LABS: African American GFR (CKD) 107.8 (60.0-200.0); Blood Urea Nitrogen <5.0 mg/dL (9.0-27.0); Calcium 8.5 mg/dL (8.7-10.3); Chloride 100 mmol/L (96-109); Glucose 168 mg/dL (70-110); Potassium 2.9 mmol/L (3.5-5.5); Sodium 136 mmol/L (135-145)
[2020-09-21] MEDS ORDERED: LIDOCAINE 1% INJ 10MG/ML (20 ML MDV) ONE (12:39)
[2020-09-21] MEDS ORDERED: PROPOFOL 10 MG/ML 20 ML VIAL IV ONE (12:39)
[2020-09-21] MEDS ORDERED: IV FLUID CONTINUATION 1,000 ML IV ONE (12:40)
--- NOTE | 2020-09-21 12:54 | P.PCN ---
Date of Procedure: 09/21/20 Procedure(s) Performed: BRIEF HISTORY: Patient is a 89-year-old, pleasant, white female admitted hospital with abdominal pain, black tarry stools of 2 days' duration. Hemoglobin dropped from 10-8.8 g/dL. She is hence scheduled for an upper endoscopy to evaluate further. PROCEDURE PERFORMED: Esophagogastroduodenoscopy. PREOPERATIVE DIAGNOSIS: Anemia and black tarry stools. IV sedation per anesthesia. PROCEDURE: After informed consent was obtained, the patient was brought into the endoscopy unit. IV sedation was administered by Anesthesia under continuous monitoring. Initially the Olympus GIF-140 video endoscope was inserted into the mouth. Esophagus intubated without any difficulty. It was gradually advanced into the stomach and duodenum and carefully examined. The bulb and the second part of the duodenum appeared normal. The scope at this time was withdrawn to the stomach, adequately insufflated with air, and upon careful examination, mucosa of the antrum had mild gastritis. No ulcerations noted. The, body, cardia and the fundus appeared normal. The scope was then withdrawn into the esophagus. The GE junction was located at 39 cm from the incisors. Small hiatal hernia noted. The esophagus appeared normal. There were no erosions or ulcerations seen and the patient tolerated the procedure well. IMPRESSION: 1. Mild antral gastritis. 2. Small hiatal hernia. RECOMMENDATIONS: The findings of this examination were discussed with the patient . She will continue with Protonix 40 mg daily. Advance diet as tolerated.
[2020-09-21] MEDS ORDERED: METOPROLOL SUCCINATE (ER) 25 MG TAB.ER.24H PO STA (13:34)
--- NOTE | 2020-09-21 13:35 | P.DS ---
Providers Date of admission: 09/18/20 20:51 Attending physician: Ino Trivedi MD Consults: 09/19/20 14:35 Consult Physician Routine Consulting Provider: Gisselle Cobos Consult Reason/Comments: diarrhea, tarry black stools Do you want consulting provider notified?: Yes Primary care physician: Mikhail [facility] Course: Patient is admitted for severe dehydration and hyponatremia and stool impaction in the rectum along with edema and inflammation of the rectum. Patient had low- grade fever today patient was started on metronidazole for overnight physician because of concerns of inflation inflammation and infection in the rectal area. I will obtain septic workup including chest x-ray to rule out pneumonia, urinalysis, urine cultures and blood cultures will not change any antibiotics at this time. 09/21/2020 Patient had an upper GI endoscopy which showed antral gastritis patient was discharged on Protonix is no evidence of GI bleed since her hospitalization. Patient was discharged to subacute rehabilitation patient had a rectal disimpaction after which patient was having normal bowel movements Percocet will be discontinued patient can use Tylenol for pain. Patient will be resumed on losartan and blood pressure started going up today increase the dose of Toprol- XL. Patient will need subacute rehabilitation will be discharged to subacute rehab today PHYSICAL EXAMINATION: GENERAL: The patient is alert and oriented x2-3, not in any acute distress. Well developed, well nourished. Significant age-related hearing issues HEENT: Pupils are round and equally reacting to light. EOMI. No scleral icterus. No conjunctival pallor. Normocephalic, atraumatic. No pharyngeal erythema. No thyromegaly. CARDIOVASCULAR: S1 and S2 present. No murmurs, rubs, or gallops. PULMONARY: Chest is clear to auscultation, no wheezing or crackles. ABDOMEN: Soft, nontender, nondistended, normoactive bowel sounds. No palpable organomegaly. MUSCULOSKELETAL: No joint swelling or deformity. EXTREMITIES: No cyanosis, clubbing, or pedal edema. NEUROLOGICAL: Gross neurological examination did not reveal any focal deficits. SKIN: No rashes. Assessment and Plan Plan: -Hypovolemic hyponatremia: Secondary to diarrhea and poor by mouth intake: Improved with IV fluids which will be continued -Stool impaction: Improved patient had multiple bowel movements. Patient does have perirectal inflammation. Source of fever patient received antibiotics here I do not believe patient will need to continue antibiotics upon discharge -Tachycardia due to dehydration proved now dose of Toprol-XL will be increased to 25 from 12.5 daily. -Leukocytosis reactive: C. diff is negative. Acidosis is resolved mostly secondary to mild colitis in the rectal area due to fecal impaction or reactive in nature -Recent Covid 19 patient is presently have not hypoxic chest x-ray did not show any significant abnormality patient will not require any systemic steroids. -Hyperlipidemia -Hypertension - concern for upper GI bleed patient underwent upper GI endoscopy and has mild antral gastritis no evidence of acute GI bleed here in the hospital patient will be discharged on Protonix for month Plan - Discharge Summary Discharge Rx Participant: Yes New Discharge Prescriptions: New Zinc Sulfate [Orazinc] 220 mg PO DAILY cap Ascorbic Acid [Vitamin C] 500 mg PO BID tab Pantoprazole Sodium [Protonix] 40 mg PO DAILY #30 tablet.dr Mcleod Amitriptyline HCl 40 tab PO HS Losartan Potassium 50 tab PO DAILY Ergocalciferol (Vitamin D2) [Drisdol (50,000 Iu)] 1,250 mcg PO Q7D Ferrous Sulfate [Iron (65 MG Elemental)] 325 mg PO BID Changed Metoprolol Succinate (ER) [Toprol XL] 25 mg PO DAILY #0 Discontinued Omeprazole 1 tab PO DAILY oxyCODONE-APAP 7.5-325MG [Percocet 7.5-325 mg] 1 tab PO QID PRN PRN Reason: Severe Pain amLODIPine [Norvasc] 5 tab PO DAILY Discharge Medication List Amitriptyline HCl 40 tab PO HS 06/08/20 [History] Ergocalciferol (Vitamin D2) [Drisdol (50,000 Iu)] 1,250 mcg PO Q7D 06/08/20 [History] Losartan Potassium 50 tab PO DAILY 06/08/20 [History] Ferrous Sulfate [Iron (65 MG Elemental)] 325 mg PO BID 09/18/20 [History] Ascorbic Acid [Vitamin C] 500 mg PO BID tab 09/21/20 [Rx] Metoprolol Succinate (ER) [Toprol XL] 25 mg PO DAILY #0 09/21/20 [Rx] Pantoprazole Sodium [Protonix] 40 mg PO DAILY #30 tablet. 09/21/20 [Rx] Zinc Sulfate [Orazinc] 220 mg PO DAILY cap 09/21/20 [Rx] Follow up Appointment(s)/Referral(s): Burak Rocha MD [STAFF PHYSICIAN] - 1 Week Mikhail Lewis III, MD [Primary Care Provider] - 1-2 days
[2020-09-21] MEDS ORDERED: POTASSIUM CHLORIDE ER 20 MEQ TAB.ER PO STA (13:38)
[2020-09-21] MEDS ORDERED: LOSARTAN 50 MG TAB PO SCH (13:45)
[2020-09-21] MEDS: POTASSIUM CHLORIDE ER 20 MEQ TAB.ER PO SCH ×2 (15:16→16:56)
[2020-09-21 15:46] VITALS: BP 156/86; PULSE 117; TEMP 98.6
== END 2020-09-21 17:03 | disposition home health service (06) | DRG 641 ==
LOC: EC 17:23 → 4SSUR 20:51
PROVIDERS: ADMIT Internal Medicine; ATTEND Internal Medicine
PROC: 0DJ08ZZ Inspection of Upper Intestinal Tract, Via Natural or Artificial Opening Endoscopic (ICD-10-PCS; principal; 2020-09-21 12:00)
DX: E87.1 Hypo-osmolality and hyponatremia (principal); E87.2 Acidosis; K56.41 Fecal impaction; E86.1 Hypovolemia; E86.0 Dehydration; K44.9 Diaphragmatic hernia without obstruction or gangrene; K29.70 Gastritis, unspecified, without bleeding; G89.29 Other chronic pain; D72.829 Elevated white blood cell count, unspecified; M54.9 Dorsalgia, unspecified; I10 Essential (primary) hypertension; K52.9 Noninfective gastroenteritis and colitis, unspecified; D64.9 Anemia, unspecified; K57.30 Diverticulosis of large intestine without perforation or abscess without bleeding; K21.9 Gastro-esophageal reflux disease without esophagitis; K43.9 Ventral hernia without obstruction or gangrene; M19.90 Unspecified osteoarthritis, unspecified site; E78.5 Hyperlipidemia, unspecified; Z86.16 Personal history of COVID-19; Z79.899 Other long term (current) drug therapy; Z88.1 Allergy status to other antibiotic agents; Z88.0 Allergy status to penicillin; Z88.2 Allergy status to sulfonamides; Z88.8 Allergy status to other drugs, medicaments and biological substances
CPT/HCPCS: 36415; 43235; 71046; 74176; 80048; 80053; 81003; 83630; 83735; 84145; 84443; 85025; 85027; 87040; 87045; 87046; 87324; 96360; 96361; 96372; 99285

== ENCOUNTER → 2021-03-06 | Outpatient (CLI) | payer MEDICARE, BC ==
--- NOTE | 2021-03-06 13:00 | CT ---
EXAMINATION TYPE: CT lumbar spine wo con DATE OF EXAM: 03/06/2021 12:51 PM COMPARISON: None HISTORY: Radiculopathy CT DLP: 970 mGycm Automated exposure control for dose reduction was used. Unenhanced CT of the lumbar spine was performed. Bone and soft tissue window settings are submitted as well as coronal and sagittal reconstructions. There is severe scoliosis convex to the left. L1-L2: Normal disc space height. No disc herniation protrusion or central stenosis. No facet joint arthropathy. No evidence for foraminal encroachment. L2-L3: Vacuum disc noted. Posterior disc bulge. Hypertrophy ligamentum flavum and facet joint arthrop athy resulting in mild central stenosis. L3-L4: Moderate disc space narrowing. Moderate posterior disc bulge. Hypertrophy ligamentum flavum an d facet joint arthropathy resulting in mild central stenosis. L4-L5: Vacuum disc noted. Grade 1 anterolisthesis measuring 9 mm. Severe facet joint arthropathy. No central stenosis or disc herniation. L5-S1: Moderate disc desiccation. Posterior disc bulge. No herniations or central stenosis. Foramina are patent. IMPRESSION: Severe scoliotic curvature convex to the left. Multilevel degenerative disc disease. Mild central coleman nosis at L2-3 and L3-4.
== END | disposition home or self-care (01) ==
LOC: RADCTMAIN 12:10
PROVIDERS: ATTEND Physical Medicine & Rehabilitation
DX: M51.17 Intervertebral disc disorders with radiculopathy, lumbosacral region (principal); M47.26 Other spondylosis with radiculopathy, lumbar region; M48.061 Spinal stenosis, lumbar region without neurogenic claudication; M41.86 Other forms of scoliosis, lumbar region
CPT/HCPCS: 72131

== ENCOUNTER 2021-03-28 16:17 | Inpatient (IN) | payer MEDICARE, BC ==
[2021-03-28] MEDS ORDERED: SODIUM CHLORIDE 0.9% 500 ML 500 ML IV STA (16:49)
--- NOTE | 2021-03-28 17:08 | ED ---
General Adult HPI - General Chief complaint: Altered Mental Status Stated complaint: UTI,High Blood Pressure Time Seen by Provider: 03/28/21 16:38 Source: patient, family, RN notes reviewed, old records reviewed Mode of arrival: EMS Limitations: no limitations - History of Present Illness Initial comments: Patient is an 89-year-old female with history of hypertension, presenting to the emergency department via EMS with her daughter with concerns of altered mental status. Patient does live with her daughter at this time. Normally patient is alert and oriented 4, she gets around very well. States that over the past 24 hours she seems slightly confused, she thought her daughter was her that has passed, thought the cat was a pillow. Patient was recently treated for UTI about 2-3 weeks ago, and she acted about the same way. Daughter is concerned that the UTI has returned. Patient has no specific complaints at this time. She denies any chest pain or shortness of breath, no abdominal pain, no dysuria. She was also recently treated for a skin infection to her right lower leg after she skinned her leg on her walker. She finished the antibiotic 2 days ago. Patient has had no fevers, her appetite has been low over the past 2 days. There are no further complaints at this time. Upon arrival to the ER, she is afebrile, blood pressure is elevated at 196/100, and rest of vitals normal. - Related Data Home Medications Medication Instructions Recorded Confirmed Amitriptyline HCl 40 mg PO HS 06/08/20 03/28/21 Ergocalciferol (Vitamin D2) 1,250 mcg PO MO 06/08/20 03/28/21 [Drisdol (50,000 Iu)] Losartan Potassium 50 mg PO DAILY 06/08/20 03/28/21 Acetaminophen Tab [Tylenol Tab] 500 mg PO QID 03/28/21 03/28/21 Metoprolol Succinate (ER) [Toprol 25 mg PO HS 03/28/21 03/28/21 XL] Vitamin C Er 500mg 1 tab PO BID 03/28/21 03/28/21 Zinc Picolinate 22mg 1 tab PO DAILY 03/28/21 03/28/21 traMADol HCL 50 mg PO QID 03/28/21 03/28/21 Previous Rx's Medication Instructions Recorded Pantoprazole Sodium [Protonix] 40 mg PO DAILY #30 tablet. 09/21/20 Allergies Allergy/AdvReac Type Severity Reaction Status Date / Time cephalexin [From Keflex] Allergy Itching Verified 03/28/21 18:01 iodine Allergy Unknown Verified 03/28/21 18:01 nystatin Allergy Rash/Hives Verified 03/28/21 18:01 Penicillins Allergy Swelling Verified 03/28/21 18:01 pregabalin [From Lyrica] Allergy Blurred Verified 03/28/21 18:01 Vision sulfamethoxazole Allergy Unknown Verified 03/28/21 18:01 [From Bactrim] triamcinolone [From Kenalog] Allergy Rash/Hives Verified 03/28/21 18:01 trimethoprim [From Bactrim] Allergy Unknown Verified 03/28/21 18:01 clindamycin AdvReac Diarrhea Verified 03/28/21 18:01 hydrochlorothiazide AdvReac Dizziness Verified 03/28/21 18:01 ropinirole [From Requip] AdvReac Dizziness Verified 03/28/21 18:01 simvastatin [From Zocor] AdvReac Muscle Pain Verified 03/28/21 18:01 Review of Systems ROS Statement: Those systems with pertinent positive or pertinent negative responses have been documented in the HPI. ROS Other: All systems not noted in ROS Statement are negative. Past Medical History Past Medical History: Hyperlipidemia, Hypertension, Osteoarthritis (OA) History of Any Multi-Drug Resistant Organisms: None Reported Past Surgical History: No Surgical Hx Reported Past Anesthesia/Blood Transfusion Reactions: No Reported Reaction Past Psychological History: No Psychological Hx Reported Smoking Status: Never smoker Past Alcohol Use History: None Reported Past Drug Use History: None Reported General Exam - General Exam Comments Initial Comments: GENERAL: Patient is well-developed and well-nourished. Patient is nontoxic and in no acute distress. HEAD: Atraumatic, normocephalic. EYES: Pupils equal round and reactive to light, extraocular movements intact, sclera anicteric, conjunctiva are normal. Eyelids were unremarkable. ENT: TMs normal, nares patent, oropharynx clear without exudates. Moist mucous membranes. NECK: Normal range of motion, supple without lymphadenopathy or JVD. LUNGS: Unlabored respirations. Breath sounds clear to auscultation bilaterally and equal. No wheezes rales or rhonchi. HEART: Tachycardia rate and rhythm without murmurs, rubs or gallops. ABDOMEN: Soft, nontender, normoactive bowel sounds. No guarding, no rebound. No masses appreciated. : Deferred MUSCULOSKELETAL: Normal extremities with adequate strength and normal range of motion, no pitting or edema. No clubbing or cyanosis. NEUROLOGICAL: Patient is alert and oriented x 3, knows her name, date, location and daughter's name she knows the year.. Motor and sensory are also intact. Cranial nerves II through XII grossly intact. Symmetrical smile. Normal speech, normal gait. PSYCH: Normal mood, normal affect. SKIN: Warm, Dry, normal turgor, no rashes or lesions noted. Limitations: no limitations Course Vital Signs 03/28/21 03/28/21 03/28/21 16:21 16:30 17:00 Temperature 98.4 F Pulse Rate 111 H 109 H 118 H Respiratory 18 18 18 Rate Blood Pressure 196/100 196/100 199/98 O2 Sat by Pulse 98 99 92 L Oximetry 03/28/21 03/28/21 03/28/21 17:30 18:00 18:56 Temperature Pulse Rate 109 H 117 H 96 Respiratory 18 18 18 Rate Blood Pressure 198/112 186/93 164/84 O2 Sat by Pulse 97 98 98 Oximetry 03/28/21 03/28/21 21:00 21:14 Temperature Pulse Rate 99 Respiratory 16 16 Rate Blood Pressure 175/93 O2 Sat by Pulse 97 Oximetry EKG Findings - EKG Comments: EKG Findings:: Sinus tachycardia, otherwise normal ECG. Ventricular rate 104, DE interval 172, QT 346. Medical Decision Making - Medical Decision Making Patient is an 89-year-old female history of hypertension, presenting via EMS with her daughter with concerns of altered mental status. She was recently treated for UTI and a local skin infection, daughter's concern for another UTI. Last abx ended 2 days ago. She has no specific complaints today. She is answering questions appropriately, is alert and oriented 3. Patient's blood pressures elevated arrival at 196/100, she slightly tachycardia at 110 as well. Labs are revealing no acute findings, troponin is normal, urine shows no evidence of infection chest x-ray also looks clear. Patient was given 1 dose of labetalol, patient's blood pressure did come down nicely to 164/84. CT of the brain showing no acute process, age-related changes. I discussed these findings with the patient and her daughter, daughter is not feeling safe to bring patient home tonight. I discussed case with Adithya Peace and he does agree to admission for observation. Will do neuro consult and monitor BP. Patient and patient's daughter are in agreement with this plan of care. Case discussed Dr. Carter. - Lab Data Result diagrams: 03/28/21 16:56 03/28/21 16:56 Lab Results 03/28/21 03/28/21 03/28/21 Range/Units 16:56 16:56 16:56 WBC 7.1 (3.8-10.6) k/uL RBC 3.63 L (3.80-5.40) m/uL Hgb 10.7 L (11.4-16.0) gm/dL Hct 32.9 L (34.0-46.0) % MCV 90.7 (80.0-100.0) fL MCH 29.4 (25.0-35.0) pg MCHC 32.4 (31.0-37.0) g/dL RDW 13.8 (11.5-15.5) % Plt Count 317 (150-450) k/uL MPV 8.2 Neutrophils % 68 % Lymphocytes % 26 % Monocytes % 4 % Eosinophils % 0 % Basophils % 1 % Neutrophils # 4.8 (1.3-7.7) k/uL Lymphocytes # 1.8 (1.0-4.8) k/uL Monocytes # 0.3 (0-1.0) k/uL Eosinophils # 0.0 (0-0.7) k/uL Basophils # 0.0 (0-0.2) k/uL PT 10.7 (9.0-12.0) sec INR 1.0 (<1.2) APTT 23.7 (22.0-30.0) sec Sodium (137-145) mmol/L Potassium (3.5-5.1) mmol/L Chloride (98-107) mmol/L Carbon Dioxide (22-30) mmol/L Anion Gap mmol/L BUN (7-17) mg/dL Creatinine (0.52-1.04) mg/dL Est GFR (CKD-EPI)AfAm (>60 ml/min/1.73 sqM) Est GFR (CKD-EPI)NonAf (>60 ml/min/1.73 sqM) Glucose (74-99) mg/dL Calcium (8.4-10.2) mg/dL Total Bilirubin (0.2-1.3) mg/dL AST (14-36) U/L ALT (4-34) U/L Alkaline Phosphatase (38-126) U/L Troponin I (0.000-0.034) ng/mL Total Protein (6.3-8.2) g/dL Albumin (3.5-5.0) g/dL Urine Color Light Yellow Urine Appearance Clear (Clear) Urine pH 6.0 (5.0-8.0) Ur Specific [place] 1.007 (1.001-1.035) Urine Protein Negative (Negative) Urine Glucose (UA) Negative (Negative) Urine Ketones Negative (Negative) Urine Blood Negative (Negative) Urine Nitrite Negative (Negative) Urine Bilirubin Negative (Negative) Urine Urobilinogen <2.0 (<2.0) mg/dL Ur Leukocyte Esterase Negative (Negative) 03/28/21 03/28/21 Range/Units 16:56 16:56 WBC (3.8-10.6) k/uL RBC (3.80-5.40) m/uL Hgb (11.4-16.0) gm/dL Hct (34.0-46.0) % MCV (80.0-100.0) fL MCH (25.0-35.0) pg MCHC (31.0-37.0) g/dL RDW (11.5-15.5) % Plt Count (150-450) k/uL MPV Neutrophils % % Lymphocytes % % Monocytes % % Eosinophils % % Basophils % % Neutrophils # (1.3-7.7) k/uL Lymphocytes # (1.0-4.8) k/uL Monocytes # (0-1.0) k/uL Eosinophils # (0-0.7) k/uL Basophils # (0-0.2) k/uL PT (9.0-12.0) sec INR (<1.2) APTT (22.0-30.0) sec Sodium 133 L (137-145) mmol/L Potassium 4.3 (3.5-5.1) mmol/L Chloride 96 L (98-107) mmol/L Carbon Dioxide 26 (22-30) mmol/L Anion Gap 11 mmol/L BUN 16 (7-17) mg/dL Creatinine 0.44 L (0.52-1.04) mg/dL Est GFR (CKD-EPI)AfAm >90 (>60 ml/min/1.73 sqM) Est GFR (CKD-EPI)NonAf >90 (>60 ml/min/1.73 sqM) Glucose 135 H (74-99) mg/dL Calcium 10.6 H (8.4-10.2) mg/dL Total Bilirubin 1.0 (0.2-1.3) mg/dL AST 24 (14-36) U/L ALT 10 (4-34) U/L Alkaline Phosphatase 76 (38-126) U/L Troponin I <0.012 (0.000-0.034) ng/mL Total Protein 7.5 (6.3-8.2) g/dL Albumin 4.5 (3.5-5.0) g/dL Urine Color Urine Appearance (Clear) Urine pH (5.0-8.0) Ur Specific [place] (1.001-1.035) Urine Protein (Negative) Urine Glucose (UA) (Negative) Urine Ketones (Negative) Urine Blood (Negative) Urine Nitrite (Negative) Urine Bilirubin (Negative) Urine Urobilinogen (<2.0) mg/dL Ur Leukocyte Esterase (Negative) Disposition Clinical Impression: Confusion, Hypertension Disposition: ADMITTED IP TO THIS [facility] Condition: Stable Decision Date: 03/28/21 Decision Time: 19:35
[2021-03-28 17:15] LABS: Appearance,Urine Clear (Clear); Basophils % (A) 1 %; Bilirubin,Urine Negative (Negative); Blood,Urine Negative (Negative); Color,Urine Light Yellow; Eosinophils % (A) 0 %; Glucose,Urine (UA) Negative (Negative); HCT 32.9 % (34.0-46.0); HGB 10.7 gm/dL (11.4-16.0); Ketones,Urine Negative (Negative); Leukocyte Esterase,Urine Negative (Negative); Lymphocytes # (A) 1.8 k/uL (1.0-4.8); Lymphocytes % (A) 26 %; MCH 29.4 pg (25.0-35.0); MCHC 32.4 g/dL (31.0-37.0); MCV 90.7 fL (80.0-100.0); Mean Platelet Volume 8.2; Monocytes # (A) 0.3 k/uL (0-1.0); Monocytes % (A) 4 %; Neutrophils # (A) 4.8 k/uL (1.3-7.7); Neutrophils % (A) 68 %; Nitrite,Urine Negative (Negative); Platelet Count 317 k/uL (150-450); Protein,Urine Negative (Negative); RBC 3.63 m/uL (3.80-5.40); RDW 13.8 % (11.5-15.5); Specific Gravity,Urine 1.007 (1.001-1.035); Urobilinogen,Urine <2.0 mg/dL (<2.0); WBC 7.1 k/uL (3.8-10.6)
[2021-03-28 17:24] LABS: Partial Thromboplastin Time 23.7 sec (22.0-30.0); Prothrombin Time 10.7 sec (9.0-12.0)
[2021-03-28 17:28] LABS: ALT 10 U/L (4-34); AST 24 U/L (14-36); African American GFR (CKD) >90 (>60 ml/min/1.73 sqM); Albumin 4.5 g/dL (3.5-5.0); Alkaline Phosphatase 76 U/L (38-126); Anion Gap 11 mmol/L; Blood Urea Nitrogen 16 mg/dL (7-17); Calcium 10.6 mg/dL (8.4-10.2); Carbon Dioxide 26 mmol/L (22-30); Chloride 96 mmol/L (98-107); Glucose 135 mg/dL (74-99); Non-African American GFR(CKD) >90 (>60 ml/min/1.73 sqM); Potassium 4.3 mmol/L (3.5-5.1); Sodium 133 mmol/L (137-145); Total Protein 7.5 g/dL (6.3-8.2)
[2021-03-28] MEDS ORDERED: LABETALOL SYRINGE 5 MG/ML IVP STA (18:28)
[2021-03-28] MEDS ORDERED: SODIUM CHLORIDE 0.9% 1,000 ML IV SCH (19:30)
[2021-03-28] MEDS ORDERED: NALOXONE 0.4 MG/ML 1 ML VIAL IV PRN (19:30)
--- NOTE | 2021-03-28 20:08 | CT ---
EXAMINATION TYPE: CT brain wo con DATE OF EXAM: 03/28/2021 COMPARISON: None HISTORY: AMS CT DLP: 1084.4 mGycm Automated exposure control for dose reduction was used. FINDINGS: Moderate generalized degenerative change. Low-attenuation the white matter nonspecific. Correlate for remote white matter ischemia. Calvarium is intact. Craniocervical junction is maintained. Partially empty sella turcica. No acute hemorrhage or mass effect. Orbits are symmetric. Hyperostosis of the calvarium. IMPRESSION: DEGENERATIVE AND NONSPECIFIC WHITE MATTER CHANGES MOST TYPICAL OF REMOTE ISCHEMIA. NO ACUTE HEMORRHAG E OR MASS EFFECT.
--- NOTE | 2021-03-28 20:09 | XR ---
EXAMINATION TYPE: XR chest 2V DATE OF EXAM: 03/28/2021 COMPARISON: 09/20/2020 HISTORY: 89 years Female. STUDY INDICATION GIVEN: altered mental status . TECHNIQUE: Frontal and lateral chest radiographs IMPRESSION: There are patchy bibasilar and linear opacities slightly increased compared to the prior study and ma y be reflective of atelectasis and/or chronic lung disease though developing infiltrate cannot be ent irely excluded. No pneumothorax or pleural effusion is appreciated. The cardiomediastinal silhouette is normal in appearance. Few sclerotic appearing lesions are seen in the proximal left humerus which have increased in the int erval. There is advanced degenerative changes of the bilateral acromioclavicular joints and bilateral glenohumeral joints.
[2021-03-28] MEDS: ACETAMINOPHEN TAB 325 MG TAB PO PRN (20:39)
[2021-03-28] MEDS: AMITRIPTYLINE HCL 10 MG TAB PO SCH (20:40)
[2021-03-28] MEDS ORDERED: METOPROLOL SUCCINATE (ER) 25 MG TAB.ER.24H PO SCH (21:00)
[2021-03-29 04:02] LABS: Glucose,Whole Blood 171 mg/dL (75-99)
[2021-03-29] MEDS ORDERED: ALPRAZolam 1 MG TAB PO STA (04:20)
[2021-03-29] MEDS ORDERED: ALPRAZolam 0.5 MG TAB PO STA (04:23)
[2021-03-29] MEDS ORDERED: carvediloL 12.5 MG TAB PO SCH (07:30)
[2021-03-29] MEDS: PANTOPRAZOLE 40 MG TABLET PO SCH (07:32)
[2021-03-29] MEDS: LOSARTAN 50 MG TAB PO SCH (07:32)
[2021-03-29] MEDS ORDERED: METOPROLOL TARTRATE 50 MG TAB PO SCH (07:55)
--- NOTE | 2021-03-29 08:00 | XR ---
EXAMINATION TYPE: XR chest 1V DATE OF EXAM: 03/29/2021 COMPARISON: 03/28/2021 HISTORY: 89-year-old female shortness of breath TECHNIQUE: Single frontal view of the chest is obtained. FINDINGS: Heart normal size. Aorta and pulmonary vasculature within normal limits. Some mild strandy atelectasi s. Chronic interstitial prominence. Eventration anterior right hemidiaphragm is unchanged. End-stage OA at both shoulders. IMPRESSION: Chronic changes, possible bronchitis or chronic asthma. Otherwise, no definite acute process.
[2021-03-29] MEDS ORDERED: cloNIDine 0.2 MG/24HR PATCH TRANSDERM SCH (09:00)
[2021-03-29] MEDS ORDERED: ASPIRIN 300 MG SUPP RECTAL SCH (13:30)
--- NOTE | 2021-03-29 13:41 | P.CNNES ---
History of Present Illness Consult date: 03/29/21 Requesting physician: Donna Arvizu Reason for Consult: Confusion History of Present Illness: Patient is a 89-year-old female came to the hospital by ambulance yesterday at 4:17 PM for altered mental status, possible hallucinations. Patient not able to provide any history. As per EMS flow sheet, patient had a recent UTI and has completed antibiotics for an extremity wound 2 days ago. After completing the course of antibiotics, patient began to have slight mental status changes and was not acting normal. Patient also began to experience severe hypertension. Family was concerned patient could be having beginning signs of sepsis. Patient's vitals at the scene was 198/92, pulse rate 112, respirations 16, saturation 97%. Blood sugar 114. Temperature 98.4. Repeat blood pressure was 188/86. Patient's blood test shows normal WBC hemoglobin 10.7 platelets 317. PT/PTT normal, sodium 133, potassium 4.3, normal renal functions, normal hepatic panel. Troponin negative, UA negative. Haskins virus PCR negative. Patient's B12 is 575 on 12/04/2020. CT head showed degenerative and nonspecific white matter changes, most typical of remote ischemia. No acute process. Chest x-ray showed patchy bibasilar and linear opacities slightly increased compared to the prior study and may be reflective of atelectasis and/or chronic lung disease. Developing infiltrate cannot be entirely excluded. No pneumothorax. EKG shows sinus tachycardia. Repeat chest x-ray showed chronic changes, possible bronchitis or chronic asthma. Patient at present appears quite confused, disoriented, stuttering, with some sp eech difficulty. Per patient's daughter, patient has no signs of dementia. Patient had a UTI 3 weeks ago when she had some mental status change, but slowly it resolved patient's daughter states that it was not as bad as this current event.. Last Friday, on 03/25/2021, patient was having normal conversation with her daughter. She has no aphasia, or speech difficulty at all and baseline. However Friday manager [employer] at 3 AM patient was noted to be sitting watching TV, staring off in space. She stayed in the chair for couple days, and would not move. She started having speech difficulty, therefore patient was brought to the hospital. According to the nursing report, patient's daughter has mentioned that for the last 2 days she has been picking on air, her blood pressure has been running high. Patient also having problems swallowing, as she would pocket medication and would not swallow. Her baseline is alert and oriented 4, but now she is very confused, which is acute change. Patient has been sleeping all night, and this morning she has been sleeping. Patient's daughter states that she does not take any antiplatelet medication at home. Patient has 2 adopted children. Patient's daughter states that patient suffered from Covid in September 2020. Patient has been on OxyContin for numbers of years, which was discontinued and switched to tramadol. Patient's daughter has noticed that since she has been on tramadol, patient has been having some cognitive issues. Review of Systems ROS unobtainable: due to mental status Past Medical History Past Medical History: Hyperlipidemia, Hypertension, Osteoarthritis (OA) Additional Past Medical History / Comment(s): UTI, skin cancer, vulvadenia, chronic back pain, umbilical hernia History of Any Multi-Drug Resistant Organisms: None Reported Past Surgical History: No Surgical Hx Reported Additional Past Surgical History / Comment(s): skin CA removal from forehead and nose Past Anesthesia/Blood Transfusion Reactions: No Reported Reaction Past Psychological History: No Psychological Hx Reported Smoking Status: Never smoker Past Alcohol Use History: None Reported Past Drug Use History: None Reported Medications and Allergies Home Medications Medication Instructions Recorded Confirmed Type Amitriptyline HCl 40 mg PO HS 06/08/20 03/28/21 History Ergocalciferol (Vitamin D2) 1,250 mcg PO MO 06/08/20 03/28/21 History [Drisdol (50,000 Iu)] Losartan Potassium 50 mg PO DAILY 06/08/20 03/28/21 History Pantoprazole Sodium [Protonix] 40 mg PO DAILY #30 tablet.dr 09/21/20 03/28/21 Rx Acetaminophen Tab [Tylenol Tab] 500 mg PO QID 03/28/21 03/28/21 History Metoprolol Succinate (ER) [Toprol 25 mg PO HS 03/28/21 03/28/21 History XL] Vitamin C Er 500mg 1 tab PO BID 03/28/21 03/28/21 History Zinc Picolinate 22mg 1 tab PO DAILY 03/28/21 03/28/21 History traMADol HCL 50 mg PO QID 03/28/21 03/28/21 History Allergies Allergy/AdvReac Type Severity Reaction Status Date / Time cephalexin [From Keflex] Allergy Itching Verified 03/28/21 18:01 iodine Allergy Unknown Verified 03/28/21 18:01 nystatin Allergy Rash/Hives Verified 03/28/21 18:01 Penicillins Allergy Swelling Verified 03/28/21 18:01 pregabalin [From Lyrica] Allergy Blurred Verified 03/28/21 18:01 Vision sulfamethoxazole Allergy Unknown Verified 03/28/21 18:01 [From Bactrim] triamcinolone [From Kenalog] Allergy Rash/Hives Verified 03/28/21 18:01 trimethoprim [From Bactrim] Allergy Unknown Verified 03/28/21 18:01 clindamycin AdvReac Diarrhea Verified 03/28/21 18:01 hydrochlorothiazide AdvReac Dizziness Verified 03/28/21 18:01 ropinirole [From Requip] AdvReac Dizziness Verified 03/28/21 18:01 simvastatin [From Zocor] AdvReac Muscle Pain Verified 03/28/21 18:01 Physical Examination - Vital Signs Vital Signs: Vital Signs Temp Pulse Pulse Pulse Resp BP BP 03/29/21 09:12 132 H 146/87 03/29/21 07:59 132 H 22 159/88 03/29/21 07:00 98.4 F 134 H 22 183/131 03/29/21 06:35 128 H 177/94 03/29/21 06:12 130 H 178/118 03/29/21 06:11 130 H 185/94 03/29/21 05:57 146 H 161/129 03/29/21 05:44 153 H 206/117 03/29/21 05:30 139 H 196/133 03/29/21 05:14 137 H 184/96 03/29/21 04:59 123 H 188/85 03/29/21 04:29 134 H 188/89 03/29/21 04:15 130 H 174/90 03/29/21 03:55 98.9 F 143 H 17 196/127 03/28/21 21:26 98.7 F 101 H 17 183/98 03/28/21 21:14 16 03/28/21 21:00 99 16 175/93 03/28/21 18:56 96 18 164/84 03/28/21 18:00 117 H 18 186/93 03/28/21 17:30 109 H 18 198/112 03/28/21 17:00 118 H 18 199/98 03/28/21 16:30 109 H 18 196/100 03/28/21 16:21 98.4 F 111 H 18 196/100 Pulse Ox 03/29/21 09:12 03/29/21 07:59 03/29/21 07:00 99 03/29/21 06:35 03/29/21 06:12 03/29/21 06:11 03/29/21 05:57 03/29/21 05:44 03/29/21 05:30 03/29/21 05:14 03/29/21 04:59 03/29/21 04:29 03/29/21 04:15 03/29/21 03:55 96 03/28/21 21:26 97 03/28/21 21:14 03/28/21 21:00 97 03/28/21 18:56 98 03/28/21 18:00 98 03/28/21 17:30 97 03/28/21 17:00 92 L 03/28/21 16:30 99 03/28/21 16:21 98 Intake and Output 03/28/21 03/29/21 03/29/21 22:59 06:59 14:59 Other: Voiding Method Bedside Commode Diaper Incontinent # Voids 1 1 # Bowel Movements 1 Weight 58.06 kg Patient is an elderly female, who is laying in the bed, asleep. Patient is sleeping, but on repeated attempts, she did wake up. Patient is very confused saying it is June, and the year is 1927. Patient is having speech difficulty, decreased fluency, word hesitancy perseveration. Patient able name simple objects like when, but when I showed her eyeglasses, patient states "pen". Attention, concentration and fund of knowledge is significantly limited. Patient would say some phrases like "let me see now", or she would say "you are welcome, thank you" patient was able to name fingers, but not the knuckles. Patient is stuttering, halted speech. Patient able to name "ears" but not the ear lobe. She has slight difficulty with repetition. On cranial examination, pupils are round and reacting to light, visual douglas are full on confrontation, extraocular muscles are intact with no nystagmus. Face is symmetric, tongue protrudes to the midline. Palatal elevation and sensation normal, hearing appears slightly decreased and shoulder shrug normal, facial sensation normal. Shoulder shrug normal. On muscle strength testing, there is no pronator drift and the strength is normal in arms and legs distally and proximally. Deep tendon reflexes are 1 in the arms and legs distally and proximally and p lantars downgoing. Sensory to touch is equal with no neglect on double simultaneous stimulation. Cerebellar function showed no ataxia for [id number] testing. No dysdiadochokinesia. Tone and bulk of muscles normal. Patient has some metabolic tremors of outstretched hands. Gait not checked. On general examination, there is no carotid bruit or murmur, S1-S2 audible. Abdomen is soft nontender. Chest is clear. Peripheral pulses are present. No edema. Results - Laboratory Findings CBC and BMP: 03/28/21 16:56 03/28/21 16:56 Abnormal Lab Findings: Abnormal Labs 03/28/21 03/28/21 03/29/21 16:56 16:56 04:00 RBC 3.63 L Hgb 10.7 L Hct 32.9 L Sodium 133 L Chloride 96 L Creatinine 0.44 L Glucose 135 H POC Glucose (mg/dL) 171 H Calcium 10.6 H Assessment and Plan Assessment: * 89-year-old female with 3 day history of altered mental status, expressive dysphagia, decreased cognition. Examination revealed some expressive aphasia, stuttering and disorientation, otherwise no focal deficits. Differential is between metabolic encephalopathy versus small stroke affecting speech function. * Hypertension * Arthritis Plan: * MRI of the brain to evaluate for acute stroke * Carotid Doppler * Start aspirin 300 mg rectally. * Speech evaluation * EEG rule out encephalopathy * Patient's B12 is 575 and TSH 1.33, both normal on 12/04/2020. * Treat hypertension, but avoid hypotension. * Discontinue tramadol, as it can lower seizure threshold. * Telemetry monitoring. * Discussed with patient's daughter in detail. * Thank you for the consult. Addendum: About 15 minutes after patient's daughter arrived, patient became much more responsive, was talking fairly normally, able to eat without difficulty. Mentation much improved. Uncertain as to the cause of encephalopathy. TIA definitely needs to be ruled out. Will switch from aspirin rectally to aspirin 325 mg orally.
--- NOTE | 2021-03-29 14:05 | US ---
EXAMINATION TYPE: US carotid duplex BILAT DATE OF EXAM: 03/29/2021 COMPARISON: NONE CLINICAL HISTORY: Aphasia, possible CVA. aphasia, confusion EXAM MEASUREMENTS: RIGHT: Peak Systolic Velocity (PSV) cm/sec ----- Right CCA: 52.3 ----- Right ICA: 77.9 ----- Right ECA: 57.5 ICA/CCA ratio: 1.5 RIGHT: End Diastole cm/sec ----- Right CCA: 14.7 ----- Right ICA: 25.2 ----- Right ECA: 14.7 LEFT: Peak Systolic Velocity (PSV) cm/sec ----- Left CCA: 54.0 ----- Left ICA: 69.7 ----- Left ECA: 55.7 ICA/CCA ratio: 1.3 LEFT: End Diastole cm/sec ----- Left CCA: 13.9 ----- Left ICA: 23.5 ----- Left ECA: 6.0 VERTEBRALS (direction of flow): Right Vertebral: Antegrade Left Vertebral: Antegrade Rhythm: Normal mild plaque bilateral bifurcations. no evidence of increased velocities IMPRESSION: No evidence for hemodynamically significant stenosis. Criteria for Assigning % of Stenosis / Diameter reduction (Estimation based on the indirect measurements of the internal carotid artery velocities (ICA PSV). 1. Normal (no stenosis)=ICA PSV < 125 cm/s: ratio < 2.0: ICA EDV<40 cm/s. 2. Less than 50% stenosis=ICA PSV < 125 cm/s: ratio < 2.0: ICA EDV<40 cm/s. 3. 50 to 69% stenosis=ICA PSV of 125 to 230 cm/s: ration 2.0 ? 4.0: ICA EDV 40-100 cm/s. 4. Greater than 70% stenosis to near occlusion= ICA PSV > 230 cm/s: ratio > 4.0: ICA EDV > 100 cm/s. 5. Near occlusion= ICA PSV velocities may be low or undetectable: variable ratio and ICA EDV. 6. Total occlusion=unable to detect flow.
[2021-03-29] MEDS: ASPIRIN 325 MG TAB PO SCH (16:21)
--- NOTE | 2021-03-29 16:29 | P.HPIM ---
History of Present Illness H&P Date: 03/29/21 Chief Complaint: Altered mental status/elevated blood pressure 89-year-old female with history of hypertension, presenting to the emergency department via EMS with her daughter with concerns of altered mental status. Patient does live with her daughter at this time. Normally patient is alert and oriented 4, she gets around very well. States that over the past 24 hours she seems slightly confused, she thought her daughter was her that has passed, thought the cat was a pillow. Patient was recently treated for UTI about 2-3 weeks ago, and she acted about the same way. Daughter is concerned that the UTI has returned. Patient has no specific complaints at this time. She denies any chest pain or shortness of breath, no abdominal pain, no dysuria. She was also recently treated for a skin infection to her right lower leg after she skinned her leg on her walker. She finished the antibiotic 2 days ago. Patient has had no fevers, her appetite has been low over the past 2 days. There are no further complaints at this time. Upon arrival to the ER, she is afebrile, blood pressure is elevated at 196/100, and rest of vitals normal. EKG Findings:: Sinus tachycardia, otherwise normal ECG. Ventricular rate 104, VA interval 172, QT 346. Laboratory review shows a WBC of 7.1, hemoglobin 10.7, hematocrit 32 when and in platelet count of 317, sodium 133, potassium 4.3, BUN 16/creatinine of 0.446 CT of the brain done in ED reveals degenerative and nonspecific white matter changes most typical of remote ischemia, no acute hemorrhage or mass effect Review of Systems ROS unobtainable: due to mental status Past Medical History Past Medical History: Hyperlipidemia, Hypertension, Osteoarthritis (OA) Additional Past Medical History / Comment(s): UTI, skin cancer, vulvadenia, chronic back pain, umbilical hernia History of Any Multi-Drug Resistant Organisms: None Reported Past Surgical History: No Surgical Hx Reported Additional Past Surgical History / Comment(s): skin CA removal from forehead and nose Past Anesthesia/Blood Transfusion Reactions: No Reported Reaction Past Psychological History: No Psychological Hx Reported Smoking Status: Never smoker Past Alcohol Use History: None Reported Past Drug Use History: None Reported Medications and Allergies Home Medications Medication Instructions Recorded Confirmed Type Amitriptyline HCl 40 mg PO HS 06/08/20 03/28/21 History Ergocalciferol (Vitamin D2) 1,250 mcg PO MO 06/08/20 03/28/21 History [Drisdol (50,000 Iu)] Losartan Potassium 50 mg PO DAILY 06/08/20 03/28/21 History Pantoprazole Sodium [Protonix] 40 mg PO DAILY #30 tablet. 09/21/20 03/28/21 Rx Acetaminophen Tab [Tylenol Tab] 500 mg PO QID 03/28/21 03/28/21 History Metoprolol Succinate (ER) [Toprol 25 mg PO HS 03/28/21 03/28/21 History XL] Vitamin C Er 500mg 1 tab PO BID 03/28/21 03/28/21 History Zinc Picolinate 22mg 1 tab PO DAILY 03/28/21 03/28/21 History traMADol HCL 50 mg PO QID 03/28/21 03/28/21 History Allergies Allergy/AdvReac Type Severity Reaction Status Date / Time cephalexin [From Keflex] Allergy Itching Verified 03/28/21 18:01 iodine Allergy Unknown Verified 03/28/21 18:01 nystatin Allergy Rash/Hives Verified 03/28/21 18:01 Penicillins Allergy Swelling Verified 03/28/21 18:01 pregabalin [From Lyrica] Allergy Blurred Verified 03/28/21 18:01 Vision sulfamethoxazole Allergy Unknown Verified 03/28/21 18:01 [From Bactrim] triamcinolone [From Kenalog] Allergy Rash/Hives Verified 03/28/21 18:01 trimethoprim [From Bactrim] Allergy Unknown Verified 03/28/21 18:01 clindamycin AdvReac Diarrhea Verified 03/28/21 18:01 hydrochlorothiazide AdvReac Dizziness Verified 03/28/21 18:01 ropinirole [From Requip] AdvReac Dizziness Verified 03/28/21 18:01 simvastatin [From Zocor] AdvReac Muscle Pain Verified 03/28/21 18:01 Physical Exam Vitals: Vital Signs Temp Pulse Pulse Pulse Resp BP BP 03/29/21 09:12 132 H 146/87 03/29/21 07:59 132 H 22 159/88 03/29/21 07:00 98.4 F 134 H 22 183/131 03/29/21 06:35 128 H 177/94 03/29/21 06:12 130 H 178/118 03/29/21 06:11 130 H 185/94 03/29/21 05:57 146 H 161/129 03/29/21 05:44 153 H 206/117 03/29/21 05:30 139 H 196/133 03/29/21 05:14 137 H 184/96 03/29/21 04:59 123 H 188/85 03/29/21 04:29 134 H 188/89 03/29/21 04:15 130 H 174/90 03/29/21 03:55 98.9 F 143 H 17 196/127 03/28/21 21:26 98.7 F 101 H 17 183/98 03/28/21 21:14 16 03/28/21 21:00 99 16 175/93 03/28/21 18:56 96 18 164/84 03/28/21 18:00 117 H 18 186/93 03/28/21 17:30 109 H 18 198/112 03/28/21 17:00 118 H 18 199/98 03/28/21 16:30 109 H 18 196/100 03/28/21 16:21 98.4 F 111 H 18 196/100 Pulse Ox 03/29/21 09:12 03/29/21 07:59 03/29/21 07:00 99 03/29/21 06:35 03/29/21 06:12 03/29/21 06:11 03/29/21 05:57 03/29/21 05:44 03/29/21 05:30 03/29/21 05:14 03/29/21 04:59 03/29/21 04:29 03/29/21 04:15 03/29/21 03:55 96 03/28/21 21:26 97 03/28/21 21:14 03/28/21 21:00 97 03/28/21 18:56 98 03/28/21 18:00 98 03/28/21 17:30 97 03/28/21 17:00 92 L 03/28/21 16:30 99 03/28/21 16:21 98 Intake and Output 03/28/21 03/29/21 03/29/21 22:59 06:59 14:59 Other: Voiding Method Bedside Commode Diaper Incontinent # Voids 1 1 # Bowel Movements 1 Weight 58.06 kg - Constitutional General appearance: Present: average body habitus, cooperative, no acute distres - Neck Neck: Present: normal ROM. Absent: lymphadenopathy, rigidity, thyromegaly Carotids: negative: bruit present Thyroid: bilateral: normal size, negative: enlarged, nodule Respiratory: bilateral: CTA, negative: rales, rhonchi, wheezing - Cardiovascular Rhythm: regular Heart sounds: normal: S1, S2 Abnormal Heart Sounds: Absent: systolic murmur, diastolic murmur General gastrointestinal: Present: normal bowel sounds, soft. Absent: disten ded, organomegaly, tenderness Genitourinary Comment(s): deferred Integumentary: Present: normal turgor. Absent: jaundiced, rash, ulcer Neurologic: Patient remains alert but confused: CNII-XII intact. Absent: focal deficits Musculoskeletal: Present: gait normal, strength equal bilaterally Results CBC & Chem 7: 03/28/21 16:56 03/28/21 16:56 Labs: Abnormal Lab Results - Last 24 Hours (Table) 03/28/21 03/28/21 03/29/21 Range/Units 16:56 16:56 04:00 RBC 3.63 L (3.80-5.40) m/uL Hgb 10.7 L (11.4-16.0) gm/dL Hct 32.9 L (34.0-46.0) % Sodium 133 L (137-145) mmol/L Chloride 96 L (98-107) mmol/L Creatinine 0.44 L (0.52-1.04) mg/dL Glucose 135 H (74-99) mg/dL POC Glucose (mg/dL) 171 H (75-99) mg/dL Calcium 10.6 H (8.4-10.2) mg/dL Thrombosis Risk Factor Assmnt - Choose All That Apply Each Factor Represents 1 point: Obesity (BMI >25), Swollen legs (current) Each Risk Factor Represents 3 Points: Age 75 years or older Thrombosis Risk Factor Assessment Total Risk Factor Score: 5 Thrombosis Risk Factor Assessment Level: High Risk Assessment and Plan Assessment: 1. Altered mental status with expressive aphasia; metabolic encephalopathy versus CVA - Patient has been evaluated by neurology and is recommended MRI of the brain, carotid Dopplers; EEG to rule out encephalopathy - Consult PT/OT/SHOE LAY OUT PLANNER - Patient has been placed on aspirin 300 mg rectally; lab work is reviewed and stable - Previous blood work reviewed reveals a B12 level of 575 and TSH of 1.33 - Toradol is recommended to be discontinued 2. Accelerated hypertension; blood pressures currently at 175/99; neurology. Patient to be treated for hypertension but recommending to wait hypotension; we will start on home antihypertensive therapy continued to monitor closely for any further adjustments 3. Hypercalcemia/possible dehydration; IV fluid hydration with D5 half-normal saline at rate of 75 mL an hour; we will repeat renal function and electrolytes and calcium levels tomorrow 4. Hyperlipidemia; patient currently is not on any statin therapy; we will order lipid profile and await results of further testing DVT prophylaxis; SCDs/subcu heparin CODE STATUS; full code
--- NOTE | 2021-03-29 16:59 | P.CRDCN ---
History of Present Illness History of present illness: This is Dr. Nam dictating a consult on this patient The patient was interviewed and examined IMPRESSION / ASSESSMENT: Uncontrolled hypertension PLAN: Agree with clonidine patch for now Once her mental status improves when she should be switched back to oral medications The dose of losartan should be increased Metoprolol may be changed to carvedilol at that time once clonidine patch is discontinued HPI Patient admitted with mental status changes and significantly elevated blood pressure readings of 183/90 874/90 188/89 Her blood pressure still 175/99 mmHg She is sleeping comfortably in bed She is admitted with a UTI She's been compliant with them blood pressure medications He has a history of hypertension ROS: No fever chills or rigors, no cough, phlegm or expectoration, no nausea, vomiting or diarrhea, no hematuria, dysuria, no musculoskeletal complaints, no strokes or seizures, no skin lesions. EXAMINATION: Elevated blood pressure readings REVIEW OF LABS, ECG & MEDICAL DATA White count 7.1, hemoglobin 10.7, platelet count 370,000 Sodium 133, potassium 4.3 BUN 16 and creatinine 0.44 Normal troponin Past Medical History Past Medical History: Hyperlipidemia, Hypertension, Osteoarthritis (OA) Additional Past Medical History / Comment(s): UTI, skin cancer, vulvadenia, chronic back pain, umbilical hernia History of Any Multi-Drug Resistant Organisms: None Reported Past Surgical History: No Surgical Hx Reported Additional Past Surgical History / Comment(s): skin CA removal from forehead and nose Past Anesthesia/Blood Transfusion Reactions: No Reported Reaction Past Psychological History: No Psychological Hx Reported Smoking Status: Never smoker Past Alcohol Use History: None Reported Past Drug Use History: None Reported Medications and Allergies Home Medications Medication Instructions Recorded Confirmed Type Amitriptyline HCl 40 mg PO HS 06/08/20 03/28/21 History Ergocalciferol (Vitamin D2) 1,250 mcg PO MO 06/08/20 03/28/21 History [Drisdol (50,000 Iu)] Losartan Potassium 50 mg PO DAILY 06/08/20 03/28/21 History Pantoprazole Sodium [Protonix] 40 mg PO DAILY #30 tablet. 09/21/20 03/28/21 Rx Acetaminophen Tab [Tylenol Tab] 500 mg PO QID 03/28/21 03/28/21 History Metoprolol Succinate (ER) [Toprol 25 mg PO HS 03/28/21 03/28/21 History XL] Vitamin C Er 500mg 1 tab PO BID 03/28/21 03/28/21 History Zinc Picolinate 22mg 1 tab PO DAILY 03/28/21 03/28/21 History traMADol HCL 50 mg PO QID 03/28/21 03/28/21 History Allergies Allergy/AdvReac Type Severity Reaction Status Date / Time cephalexin [From Keflex] Allergy Itching Verified 03/28/21 18:01 iodine Allergy Unknown Verified 03/28/21 18:01 nystatin Allergy Rash/Hives Verified 03/28/21 18:01 Penicillins Allergy Swelling Verified 03/28/21 18:01 pregabalin [From Lyrica] Allergy Blurred Verified 03/28/21 18:01 Vision sulfamethoxazole Allergy Unknown Verified 03/28/21 18:01 [From Bactrim] triamcinolone [From Kenalog] Allergy Rash/Hives Verified 03/28/21 18:01 trimethoprim [From Bactrim] Allergy Unknown Verified 03/28/21 18:01 clindamycin AdvReac Diarrhea Verified 03/28/21 18:01 hydrochlorothiazide AdvReac Dizziness Verified 03/28/21 18:01 ropinirole [From Requip] AdvReac Dizziness Verified 03/28/21 18:01 simvastatin [From Zocor] AdvReac Muscle Pain Verified 03/28/21 18:01 Physical Exam Vitals: Vital Signs Temp Pulse Pulse Pulse Resp BP BP 03/29/21 14:00 98.2 F 114 H 18 175/99 03/29/21 09:12 132 H 146/87 03/29/21 07:59 132 H 22 159/88 03/29/21 07:00 98.4 F 134 H 22 183/131 03/29/21 06:35 128 H 177/94 03/29/21 06:12 130 H 178/118 03/29/21 06:11 130 H 185/94 03/29/21 05:57 146 H 161/129 03/29/21 05:44 153 H 206/117 03/29/21 05:30 139 H 196/133 03/29/21 05:14 137 H 184/96 03/29/21 04:59 123 H 188/85 03/29/21 04:29 134 H 188/89 03/29/21 04:15 130 H 174/90 03/29/21 03:55 98.9 F 143 H 17 196/127 03/28/21 21:26 98.7 F 101 H 17 183/98 03/28/21 21:14 16 03/28/21 21:00 99 16 175/93 03/28/21 18:56 96 18 164/84 03/28/21 18:00 117 H 18 186/93 03/28/21 17:30 109 H 18 198/112 03/28/21 17:00 118 H 18 199/98 Pulse Ox 03/29/21 14:00 100 03/29/21 09:12 03/29/21 07:59 03/29/21 07:00 99 03/29/21 06:35 03/29/21 06:12 03/29/21 06:11 03/29/21 05:57 03/29/21 05:44 03/29/21 05:30 03/29/21 05:14 03/29/21 04:59 03/29/21 04:29 03/29/21 04:15 03/29/21 03:55 96 03/28/21 21:26 97 03/28/21 21:14 03/28/21 21:00 97 03/28/21 18:56 98 03/28/21 18:00 98 03/28/21 17:30 97 03/28/21 17:00 92 L Intake and Output 03/29/21 03/29/21 03/29/21 06:59 14:59 22:59 Other: Voiding Method Diaper Incontinent # Voids 1 Results 03/28/21 16:56 03/28/21 16:56 Cardiac Enzymes 03/28/21 03/28/21 Range/Units 16:56 16:56 AST 24 (14-36) U/L Troponin I <0.012 (0.000-0.034) ng/mL Coagulation 03/28/21 Range/Units 16:56 PT 10.7 (9.0-12.0) sec APTT 23.7 (22.0-30.0) sec CBC 03/28/21 Range/Units 16:56 WBC 7.1 (3.8-10.6) k/uL RBC 3.63 L (3.80-5.40) m/uL Hgb 10.7 L (11.4-16.0) gm/dL Hct 32.9 L (34.0-46.0) % Plt Count 317 (150-450) k/uL Comprehensive Metabolic Panel 03/28/21 Range/Units 16:56 Sodium 133 L (137-145) mmol/L Potassium 4.3 (3.5-5.1) mmol/L Chloride 96 L (98-107) mmol/L Carbon Dioxide 26 (22-30) mmol/L BUN 16 (7-17) mg/dL Creatinine 0.44 L (0.52-1.04) mg/dL Glucose 135 H (74-99) mg/dL Calcium 10.6 H (8.4-10.2) mg/dL AST 24 (14-36) U/L ALT 10 (4-34) U/L Alkaline Phosphatase 76 (38-126) U/L Total Protein 7.5 (6.3-8.2) g/dL Albumin 4.5 (3.5-5.0) g/dL Current Medications Generic Name Dose Route Start Last Admin Trade Name Freq PRN Reason Stop Dose Admin Acetaminophen 650 mg 03/28/21 19:30 03/28/21 20:39 Acetaminophen Tab 325 Mg Tab PO 650 mg Q6HR PRN Administration Mild Pain or Fever > 100.5 Amitriptyline HCl 40 mg 03/28/21 21:00 03/28/21 20:40 Amitriptyline Hcl 10 Mg Tab PO 40 mg HS DARLINE Administration Aspirin 325 mg 03/29/21 16:04 03/29/21 16:21 Aspirin 325 Mg Tab PO 325 mg DAILY DARLINE Administration Clonidine HCl 1 patch 03/29/21 09:00 03/29/21 09:08 Clonidine 0.2 Mg/24hr Patch TRANSDERM 1 patch Q7D DARLINE Administration Losartan Potassium 50 mg 03/29/21 09:00 03/29/21 07:32 Losartan 50 Mg Tab PO 50 mg DAILY DARLINE Administration Naloxone HCl 0.2 mg 03/28/21 19:30 Naloxone 0.4 Mg/Ml 1 Ml Vial IV Q2M PRN Opioid Reversal Pantoprazole Sodium 40 mg 03/29/21 09:00 03/29/21 07:32 Pantoprazole 40 Mg Tablet PO 40 mg DAILY DARLINE Administration Intake and Output 03/29/21 03/29/21 03/29/21 06:59 14:59 22:59 Other: Voiding Method Diaper Incontinent # Voids 1 03/28/21 16:56 03/28/21 16:56
[2021-03-29] MEDS: AMITRIPTYLINE HCL 10 MG TAB PO SCH (20:50)
[2021-03-29] MEDS: ACETAMINOPHEN TAB 325 MG TAB PO PRN (20:50)
[2021-03-30] MEDS: LOSARTAN 50 MG TAB PO SCH (08:29)
[2021-03-30] MEDS: PANTOPRAZOLE 40 MG TABLET PO SCH (08:29)
[2021-03-30] MEDS: ASPIRIN 325 MG TAB PO SCH (08:29)
[2021-03-30] MEDS ORDERED: ASPIRIN 325 MG TAB PO SCH (09:00)
[2021-03-30] MEDS: ACETAMINOPHEN TAB 325 MG TAB PO PRN ×2 (12:11→16:58)
--- NOTE | 2021-03-30 15:02 | EEG ---
ELECTROENCEPHALOGRAM REPORT DATE OF SERVICE: 03/30/2021 PREAMBLE: This is an 89-year-old female with episodes of confusion and altered mental status. This study is performed to rule out any epileptiform activity. EEG FINDINGS: This is a 21-channel digital EEG recorded with video component, utilizing 10/20 international system with referential and bipolar montages. Background consists of well-developed, moderately well regulated, predominantly moderate amplitude theta in 6- 7 hertz seen in bihemispheric region. Background does not seem to be reactive to eye opening or closing. Photic driving response was not seen. Different stages of sleep were not seen. No focal or generalized epileptiform activity was seen. EKG channel showed no arrhythmia. IMPRESSION: This is an abnormal EEG due to background slowing of mild to moderate degree. This is suggestive of generalized cerebral dysfunction as can be seen with toxic metabolic encephalopathy or due to diffuse structural brain abnormality. No epileptiform activity was seen. MMODL / IJN: [id number] /
[2021-03-30 15:33] LABS: African American GFR (CKD) >90 (>60 ml/min/1.73 sqM); Anion Gap 8 mmol/L; Blood Urea Nitrogen 16 mg/dL (7-17); Carbon Dioxide 28 mmol/L (22-30); Chloride 97 mmol/L (98-107); Glucose 135 mg/dL (74-99); Non-African American GFR(CKD) 89 (>60 ml/min/1.73 sqM); Potassium 3.7 mmol/L (3.5-5.1); Sodium 133 mmol/L (137-145)
--- NOTE | 2021-03-30 18:16 | MR ---
EXAMINATION TYPE: MR brain wo con DATE OF EXAM: 03/30/2021 2:07 PM COMPARISON: NONE HISTORY: Aphasia FINDINGS: The ventricles, basal cisterns and sulci overlying the cerebral convexities are moderately enlarged. There is evidence of moderate periventricular white matter ischemic demyelination. Remote deep white matter insults are also noted. No acute edema is seen on diffusion weighted imaging. There is no evidence for midline shift or mass effect. Acute intracranial hemorrhage or extra-axial collection is not evident. The paranasal sinuses and mastoid air cells are well-aerated. IMPRESSION: Age-related atrophic and chronic small vessel ischemic change. No acute intracranial process at this time.
[2021-03-30] MEDS: AMITRIPTYLINE HCL 10 MG TAB PO SCH (20:38)
[2021-03-31] MEDS: ACETAMINOPHEN TAB 325 MG TAB PO PRN ×2 (00:12→05:48)
--- NOTE | 2021-03-31 00:22 | P.PN ---
Subjective Progress Note Date: 03/30/21 03/30/2021 Patient is seen and evaluated. Patient was admitted with mental status changes along with elevated BP. Her BP still reads at 175/99 mmHG. Patient is compliant with her HTN medications. Patient is afebrile with no chills, cough, nausea, vomiting, diarrhea. Patient's WBC count is 7.1, Hbg is 10.7. Patient's tropinin levels are normal . There are no further complaints at this time and the rest of her vitals, besides her BP is normal. After Cardiology consultation, cardiology decided and agreed with a clonidine patch for now to maintain her BP at normal level. It was suggested that upon return to normal mental status, patient should be switched back to oral medications with an increase in dosage of Losartan Metoprolol is recommended to be changed to carvedilol once Clonidine is discontinued. Objective - Vital Signs Vital signs: Vital Signs Temp 97.8 F 03/30/21 07:21 Pulse 97 03/30/21 07:21 Resp 16 03/30/21 08:00 BP 156/85 03/30/21 07:21 Pulse Ox 99 03/30/21 07:21 Intake & Output 03/29/21 03/30/21 03/30/21 18:59 06:59 18:59 Other: Voiding Method Diaper Diaper Diaper Incontinent Incontinent Incontinent # Voids 1 1 - Labs CBC & Chem 7: 03/28/21 16:56 03/30/21 15:10 Assessment and Plan Assessment: 1. Altered mental status with expressive aphasia; metabolic encephalopathy v ersus CVA - Patient has been evaluated by neurology and is recommended MRI of the brain, carotid Dopplers; EEG to rule out encephalopathy - Consult PT/OT/STEAM BLOCKER - Patient has been placed on aspirin 300 mg rectally; lab work is reviewed and stable - Previous blood work reviewed reveals a B12 level of 575 and TSH of 1.33 - Toradol is recommended to be discontinued 2. Accelerated hypertension; blood pressures currently at 175/99; neurology. Patient to be treated for hypertension but recommending to wait hypotension; we will start on home antihypertensive therapy continued to monitor closely for any further adjustments 3. Hypercalcemia/possible dehydration; IV fluid hydration with D5 half-normal saline at rate of 75 mL an hour; we will repeat renal function and electrolytes and calcium levels tomorrow 4. Hyperlipidemia; patient currently is not on any statin therapy; we will order lipid profile and await results of further testing DVT prophylaxis; SCDs/subcu heparin CODE STATUS; full code
[2021-03-31] MEDS: PANTOPRAZOLE 40 MG TABLET PO SCH (08:39)
[2021-03-31] MEDS: LOSARTAN 50 MG TAB PO SCH (08:39)
[2021-03-31] MEDS: ASPIRIN 81 MG PO SCH (08:40)
[2021-03-31 09:06] LABS: HCT 30.9 % (37.2-46.3); HGB 10.2 g/dL (12.0-15.0); MCH 29.7 pg (27.0-32.0); MCV 90.1 fL (80.0-97.0); Mean Platelet Volume 10.5 fL (9.5-12.2); Platelet Count 309 X 10*3/uL (140-440); RBC 3.43 X 10*6/uL (4.10-5.20); RDW 13.3 % (11.5-14.5)
--- NOTE | 2021-03-31 09:15 | P.PN ---
Subjective Progress Note Date: 03/30/21 Patient was seen for a follow-up. Patient's daughter and son-in-law were also present. Patient has much improved. Patient's daughter believes that she is little confused, only 10% otherwise normal. She is able to swallow, drinking coffee, speaking normally. She still is generalized weak. No focal weakness. Denies headache. Objective - Vital Signs Vital signs: Vital Signs Temp 98.6 F 03/30/21 14:00 Pulse 70 03/30/21 14:00 Resp 17 03/30/21 14:00 BP 158/84 03/30/21 14:00 Pulse Ox 94 L 03/30/21 14:00 Intake & Output 03/29/21 03/30/21 03/30/21 18:59 06:59 18:59 Intake Total 600 Balance 600 Intake: Oral 600 Other: Voiding Method Diaper Diaper Diaper Incontinent Incontinent Incontinent # Voids 1 1 1 - Exam Patient's mental status, speech and language functions are normal. Patient is fully oriented. Cranial nerves are normal, visual douglas full, face symmetric. Exam nonfocal. - Labs CBC & Chem 7: 03/31/21 05:55 03/31/21 05:55 Labs: Abnormal Lab Results - Last 24 Hours (Table) 03/30/21 Range/Units 15:10 Sodium 133 L (137-145) mmol/L Chloride 97 L (98-107) mmol/L Creatinine 0.46 L (0.52-1.04) mg/dL Glucose 135 H (74-99) mg/dL Assessment and Plan Assessment: * 89-year-old female with 3 day history of altered mental status, expressive dysphasia, decreased cognition. Examination revealed some expressive aphasia, stuttering and disorientation, otherwise no focal deficits. Symptoms now completely resolved. Differential is between metabolic encephalopathy versus transient cerebral ischemia. * Hypertension * Arthritis * Mild hyponatremia (133), anemia (hemoglobin 10.2), hypercalcemia (10.6 now resolved 10.0) Plan: * MRI of the brain was performed, which revealed age-related atrophic and chronic small vessel ischemic change. No acute process. * Carotid Doppler revealed mild plaque bilateral bifurcation. No hemodynamically significant stenosis. Antegrade flow in both vertebral arteries. * Continue aspirin 162 mg daily. After 3 months, may decrease dose of aspirin to 81 mg daily. * Speech evaluation * EEG was abnormal due to background slowing of mild to moderate degree. This is suggestive of generalized cerebral dysfunction as can be seen with toxic metabolic encephalopathy or due to diffuse structural brain abnormality. No epileptiform activity was seen. * Patient's B12 is 575 and TSH 1.33, both normal on 12/04/2020. * Treat hypertension, but avoid hypotension. * Discontinue tramadol, as it can lower seizure threshold. * Telemetry monitoring. * Discussed with patient's daughter in detail. * We will complete TIA workup. We will check 2-D echo to rule out embolic source. Hemoglobin A1c was checked 4.5, completely normal. We will also check fasting lipid panel.
[2021-03-31 09:34] LABS: African American GFR (CKD) 100.3 (60.0-200.0); Anion Gap 12.2 mmol/L (4.00-12.00); BUN/Creat Ratio 25.05 Ratio (12.00-20.00); Blood Urea Nitrogen 12.2 mg/dL (9.0-27.0); Calcium 9.8 mg/dL (8.7-10.3); Carbon Dioxide 25.5 mmol/L (21.6-31.8); Chol/HDL Ratio 2.95 Ratio; HDL Cholesterol 52.9 mg/dL (40.00-60.00); LDL Cholesterol,Calculated 79.1 mg/dL (0.0-131.0); Non-African American GFR(CKD) 86.6 (60.0-200.0); Potassium 3.4 mmol/L (3.5-5.5)
--- NOTE | 2021-03-31 16:07 | P.PN ---
Subjective Progress Note Date: 03/31/21 Principal diagnosis: Hypertension urgency The patient is a pleasant 89-year-old female patient was admitted to the hospital initially with a change in mental status and also with urinary tract infection. We consulted to see the patient for blood pressure management. The patient was seen this morning. She denies any symptoms of chest pain or chest discomfort or shortness of breath or dizziness or lightheadedness or any feeling of heart racing or fluttering. The blood pressure continues to be elevated. I'm going to add Aldactone to the current medical regimen. Objective - Vital Signs Vital signs: Vital Signs Temp 97.4 F L 03/31/21 14:11 Pulse 104 H 03/31/21 14:11 Resp 17 03/31/21 14:11 BP 153/77 03/31/21 14:11 Pulse Ox 100 03/31/21 14:11 Intake & Output 03/30/21 03/31/21 03/31/21 18:59 06:59 18:59 Intake Total 836 Output Total 2 Balance 836 -2 Intake: Oral 836 Output: Urine 2 Other: Voiding Method Diaper Diaper Incontinent Incontinent # Voids 1 # Bowel Movements 0 - Constitutional General appearance: Present: no acute distress - Respiratory Respiratory: bilateral: diminished - Cardiovascular Heart sounds: normal: S1, S2 - Labs CBC & Chem 7: 03/31/21 05:55 03/31/21 05:55 Labs: Abnormal Lab Results - Last 24 Hours (Table) 03/31/21 03/31/21 Range/Units 05:55 05:55 RBC 3.43 L (4.10-5.20) X 10*6/uL Hgb 10.2 L (12.0-15.0) g/dL Hct 30.9 L (37.2-46.3) % Sodium 134 L (135-145) mmol/L Potassium 3.4 L (3.5-5.5) mmol/L Anion Gap 12.20 H (4.00-12.00) mmol/L Creatinine 0.5 L (0.6-1.5) mg/dL BUN/Creatinine Ratio 25.05 H (12.00-20.00) Ratio Glucose 139 H (70-110) mg/dL Assessment and Plan Assessment: Assessment #1 change in mental status #2 UTI #3 hypertension urgency Plan #1 continue the current medical regimen #2 add Aldactone the current medical regimen #3 continue monitoring the blood pressure
--- NOTE | 2021-03-31 17:37 | ECHOF ---
Referral Reason:TIA MEASUREMENTS -------- HEIGHT: 147.3 cm WEIGHT: 58.1 kg BP: 157/87 RVIDd: 2.4 cm (< 3.3) IVSd: 1.4 cm (0.6 - 1.1) LVIDd: 3.9 cm (3.9 - 5.3) LVPWd: 1.3 cm (0.6 - 1.1) IVSs: 1.8 cm LVIDs: 2.6 cm LVPWs: 1.8 cm LA Diam: 3.5 cm (2.7 - 3.8) LAESV Index (A-L): 33.70 ml/m Ao Diam: 3.2 cm (2.0 - 3.7) AV Cusp: 1.9 cm (1.5 - 2.6) MV EXCURSION: 17.354 mm (> 18.000) MV EF SLOPE: 191 mm/s (70 - 150) EPSS: 1.1 cm RAP: 5.00 mmHg RVSP: 27.49 mmHg FINDINGS -------- Resting tachycardia (HR>100bpm). This was a technically adequate study. The left ventricular size is normal. There is moderate concentric left ventricular hypertrophy. O verall left ventricular systolic function is normal with, an EF between 60 - 65 %. The right ventricle is normal in size. LA is midly dilated 29-33ml/m2. The right atrium is normal in size. Interatrial and interventricular septum intact. There is mild aortic valve sclerosis. Moderate mitral regurgitation is present. There is mild mitral valve prolapse , predominately an an teriorly directed jet. Mild prolapse of the posterior mitral valve leaflet. Mild tricuspid regurgitation present. Right ventricular systolic pressure is normal at < 35 mmHg. The pulmonic valve was not well visualized. The aortic root size is normal. Normal inferior vena cava with normal inspiratory collapse consistent with estimated right atrial pre ssure of 5 mmHg. There is no pericardial effusion. CONCLUSIONS -------- 1. The left ventricular size is normal. 2. There is moderate concentric left ventricular hypertrophy. 3. Overall left ventricular systolic function is normal with, an EF between 60 - 65 %. 4. LA is midly dilated 29-33ml/m2. 5. There is mild aortic valve sclerosis. 6. Moderate mitral regurgitation is present. 7. There is mild mitral valve prolapse. 8. , predominately an anteriorly directed jet. 9. Mild prolapse of the posterior mitral valve leaflet. 10. Mild tricuspid regurgitation present. 11. There is no pericardial effusion. MEDICINE ASSISTANT: Vanessa Siddiqui RDCS
[2021-03-31] MEDS: AMITRIPTYLINE HCL 10 MG TAB PO SCH (21:51)
[2021-04-01] MEDS: SPIRONOLACTONE 25 MG TAB PO SCH (08:29)
[2021-04-01] MEDS: PANTOPRAZOLE 40 MG TABLET PO SCH (08:29)
[2021-04-01] MEDS: ASPIRIN 81 MG PO SCH (08:29)
[2021-04-01] MEDS: LOSARTAN 50 MG TAB PO SCH (08:30)
--- NOTE | 2021-04-01 10:51 | P.PN ---
Subjective Progress Note Date: 03/31/21 This is a Tele-neurology follow-up performed today on 03/31/2021. Patient is doing much better. She denies any headache. The only pain she has is related to her arthritis. She does have mild dizziness when she moves around. No pain in the ear, no tinnitus. Family members were not present. Objective - Vital Signs Vital signs: Vital Signs Temp 98.3 F 03/31/21 08:00 Pulse 99 03/31/21 08:00 Resp 16 03/31/21 08:00 BP 154/92 03/31/21 08:00 Pulse Ox 96 03/31/21 08:00 Intake & Output 03/30/21 03/31/21 03/31/21 18:59 06:59 18:59 Intake Total 836 Output Total 2 Balance 836 -2 Intake: Oral 836 Output: Urine 2 Other: Voiding Method Diaper Diaper Incontinent Incontinent # Voids 1 # Bowel Movements 0 - Exam Patient's mental status, speech and language functions are normal. Patient states it is March and the year is 2000 and then changed to hear 2001. She states that she is in [facility] in [facility]. She knows name of the current president. - Labs CBC & Chem 7: 03/31/21 05:55 03/31/21 05:55 Labs: Abnormal Lab Results - Last 24 Hours (Table) 03/30/21 03/31/21 03/31/21 Range/Units 15:10 05:55 05:55 RBC 3.43 L (4.10-5.20) X 10*6/uL Hgb 10.2 L (12.0-15.0) g/dL Hct 30.9 L (37.2-46.3) % Sodium 133 L 134 L (137-145) mmol/L Potassium 3.4 L (3.5-5.5) mmol/L Chloride 97 L (98-107) mmol/L Anion Gap 12.20 H (4.00-12.00) mmol/L Creatinine 0.46 L 0.5 L (0.52-1.04) mg/dL BUN/Creatinine Ratio 25.05 H (12.00-20.00) Ratio Glucose 135 H 139 H (74-99) mg/dL Assessment and Plan Assessment: * 89-year-old female with 3 day history of altered mental status, expressive dysphasia, decreased cognition. Initial examination revealed some expressive aphasia, stuttering and disorientation, otherwise no focal deficits. Symptoms now completely resolved. Differential is between metabolic encephalopathy versus transient cerebral ischemia. * Hypertension * Arthritis * Mild hyponatremia (133), anemia (hemoglobin 10.2), hypercalcemia (10.6 now resolved 10.0) Plan: * MRI of the brain was performed, which revealed age-related atrophic and chronic small vessel ischemic change. No acute process. * Carotid Doppler revealed mild plaque bilateral bifurcation. No hemodynamically significant stenosis. Antegrade flow in both vertebral arteries. * Continue aspirin 162 mg daily. After 3 months, may decrease dose of aspirin to 81 mg daily. * Speech evaluation * EEG was abnormal due to background slowing of mild to moderate degree. This is suggestive of generalized cerebral dysfunction as can be seen with toxic metabolic encephalopathy or due to diffuse structural brain abnormality. No epileptiform activity was seen. * Patient's B12 is 575 and TSH 1.33, both normal on 12/04/2020. * Treat hypertension, but avoid hypotension. * Discontinue tramadol, as it can lower seizure threshold. * 2-D echo revealed normal left ventricular size. Moderate concentric LVH. EF is between 60-65%. Left atrium is mildly dilated. Mild aortic valve sclerosis. Mild MBP. No embolic source. * Hemoglobin A1c was checked 4.5, completely normal. * Fasting lipid panel with cholesterol 156, LDL 79, HDL 52 and triglycerides 120. Lipids are well controlled. * As there is no active neurological issue, neurology will sign off. Please reconsult if any other concerns.
--- NOTE | 2021-04-01 13:06 | P.PN ---
Subjective Progress Note Date: 04/01/21 Principal diagnosis: Hypertension urgency The patient is a pleasant 89-year-old female patient was admitted to the hospital initially with a change in mental status and also with urinary tract infection. We consulted to see the patient for blood pressure management. The patient was seen this morning. She is asymptomatic from a cardiac standpoint overview. The blood pressure is a slightly better but still not ideal and she is slightly tachycardic as well. I'm going to start her on small dose of beta felice was Toprol-XL which are her home meds. Yesterday she was restarted on Aldactone. Otherwise we'll continue with the rest of the current medical regimen. Objective - Vital Signs Vital signs: Vital Signs Temp 99.2 F 04/01/21 08:00 Pulse 111 H 04/01/21 08:00 Resp 18 04/01/21 08:00 BP 154/82 04/01/21 08:00 Pulse Ox 99 04/01/21 08:00 Intake & Output 03/31/21 04/01/21 04/01/21 18:59 06:59 18:59 Intake Total 540 Output Total 1000 Balance 540 -1000 Intake: Oral 540 Output: Urine 1000 Straight 500 Other: Voiding Method External Catheter # Voids 3 # Bowel Movements 2 0 - Constitutional General appearance: Present: no acute distress - Respiratory Respiratory: bilateral: diminished - Cardiovascular Rhythm: regular Heart sounds: normal: S1, S2 - Labs CBC & Chem 7: 03/31/21 05:55 03/31/21 05:55 Assessment and Plan Assessment: Assessment #1 change in mental status which seems to be improved #2 UTI #3 hypertension urgency #4 tachycardia Plan #1 continue the current medical regimen #2 add Toprol-XL to the current medical regimen
--- NOTE | 2021-04-01 16:41 | P.PN ---
Subjective Progress Note Date: 03/31/21 Principal diagnosis: Altered mental status with expressive aphasia; metabolic encephalopathy versus CVA Accelerated hypertension Hypercalcemia/possible dehydration 89-year-old female with history of hypertension, presenting to the emergency department via EMS with her daughter with concerns of altered mental status. Patient does live with her daughter at this time. Normally patient is alert and oriented 4, she gets around very well. States that over the past 24 hours she seems slightly confused, she thought her daughter was her that has passed, thought the cat was a pillow. Patient was recently treated for UTI about 2-3 weeks ago, and she acted about the same way. Daughter is concerned that the UTI has returned. Patient has no specific complaints at this time. She denies any chest pain or shortness of breath, no abdominal pain, no dysuria. She was also recently treated for a skin infection to her right lower leg after she skinned her leg on her walker. She finished the antibiotic 2 days ago. Patient has had no fevers, her appetite has been low over the past 2 days. There are no further complaints at this time. Upon arrival to the ER, she is afebrile, blood pressure is elevated at 196/100, and rest of vitals normal. EKG Findings:: Sinus tachycardia, otherwise normal ECG. Ventricular rate 104, SD interval 172, QT 346. Laboratory review shows a WBC of 7.1, hemoglobin 10.7, hematocrit 32 when and in platelet count of 317, sodium 133, potassium 4.3, BUN 16/creatinine of 0.446 CT of the brain done in ED reveals degenerative and nonspecific white matter changes most typical of remote ischemia, no acute hemorrhage or mass effect 03/30/2021 Patient is seen and evaluated. Patient was admitted with mental status changes along with elevated BP. Her BP still reads at 175/99 mmHG. Patient is compliant with her HTN medications. Patient is afebrile with no chills, cough, nausea, vomiting, diarrhea. Patient's WBC count is 7.1, Hbg is 10.7. Patient's tropinin levels are normal . There are no further complaints at this time and the rest of her vitals, besides her BP is normal. After Cardiology consultation, cardiology decided and agreed with a clonidine patch for now to maintain her BP at normal level. It was suggested that upon return to normal mental status, patient should be switched back to oral medications with an increase in dosage of Losartan; Metoprolol is recommended to be changed to carvedilol once Clonidine is discontinued. 03/31/2021 Patient is seen and evaluated in room with family members at bedside; patient is more awake and alert this morning; does complain of some dizziness Vital signs are reviewed with temperature 98.3, pulse 89, distention 16 and blood pressure 154/92 Lab review shows WBC of 8.9, hemoglobin 10.2 with platelet count of 309, sodium 134, potassium 2.4, BUN/creatinine of 12.2/0.5 with blood glucose of 139; MRI of the brain reveals chronic small vessel ischemic changes; EEG was abnormal due to background slowing of mild to moderate degree. This is suggestive of generalized cerebral dysfunction as can be seen with toxic metabolic encephalopathy or due to diffuse structural brain abnormality. No epileptiform activity was seen 2-D echo revealed normal left ventricular size. Moderate concentric LVH. EF is between 60-65%. Left atrium is mildly dilated. Mild aortic valve sclerosis. Mild MBP. No embolic source Patient reevaluated by neurology and recommended to continue aspirin 162 mg daily which will be transitioned to 81 mg daily after 3 months; patient recommended optimal blood pressure control and to avoid hypotension; tramadol is recommended to be discontinued; no further recommendations from neurology Cardiology recommending addition of Aldactone for improved blood pressure control Objective - Vital Signs Vital signs: Vital Signs Temp 98.3 F 03/31/21 08:00 Pulse 99 03/31/21 08:00 Resp 16 03/31/21 08:00 BP 154/92 03/31/21 08:00 Pulse Ox 96 03/31/21 08:00 Intake & Output 03/30/21 03/31/21 03/31/21 18:59 06:59 18:59 Intake Total 836 Output Total 2 Balance 836 -2 Intake: Oral 836 Output: Urine 2 Other: Voiding Method Diaper Diaper Incontinent Incontinent # Voids 1 # Bowel Movements 0 - Exam - Constitutional General appearance: Present: average body habitus, cooperative, no acute distres - Neck Neck: Present: normal ROM. Absent: lymphadenopathy, rigidity, thyromegaly Carotids: negative: bruit present Thyroid: bilateral: normal size, negative: enlarged, nodule Respiratory: bilateral: CTA, negative: rales, rhonchi, wheezing - Cardiovascular Rhythm: regular Heart sounds: normal: S1, S2 Abnormal Heart Sounds: Absent: systolic murmur, diastolic murmur General gastrointestinal: Present: normal bowel sounds, soft. Absent: distended, organomegaly, tenderness Genitourinary Comment(s): deferred Integumentary: Present: normal turgor. Absent: jaundiced, rash, ulcer Neurologic: Patient remains alert but confused: CNII-XII intact. Absent: focal deficits Musculoskeletal: Present: gait normal, strength equal bilaterally - Labs CBC & Chem 7: 03/31/21 05:55 03/31/21 05:55 Labs: Abnormal Lab Results - Last 24 Hours (Table) 03/30/21 03/31/21 03/31/21 Range/Units 15:10 05:55 05:55 RBC 3.43 L (4.10-5.20) X 10*6/uL Hgb 10.2 L (12.0-15.0) g/dL Hct 30.9 L (37.2-46.3) % Sodium 133 L 134 L (137-145) mmol/L Potassium 3.4 L (3.5-5.5) mmol/L Chloride 97 L (98-107) mmol/L Anion Gap 12.20 H (4.00-12.00) mmol/L Creatinine 0.46 L 0.5 L (0.52-1.04) mg/dL BUN/Creatinine Ratio 25.05 H (12.00-20.00) Ratio Glucose 135 H 139 H (74-99) mg/dL Assessment and Plan Assessment: 1. Altered mental status with expressive aphasia; metabolic encephalopathy versus CVA - Patient has been evaluated by neurology and is recommended MRI of the brain, carotid Dopplers; EEG to rule out encephalopathy - Consult PT/OT/DRUM BUILDER - Patient has been placed on aspirin 300 mg rectally; lab work is reviewed and stable - Previous blood work reviewed reveals a B12 level of 575 and TSH of 1.33 - Toradol is recommended to be discontinued 2. Accelerated hypertension; blood pressures currently at 175/99; neurology. Patient to be treated for hypertension but recommending to wait hypotension; we will start on home antihypertensive therapy continued to monitor closely for any further adjustments 3. Hypercalcemia/possible dehydration; IV fluid hydration with D5 half-normal saline at rate of 75 mL an hour; we will repeat renal function and electrolytes and calcium levels tomorrow 4. Hyperlipidemia; patient currently is not on any statin therapy; we will order lipid profile and await results of further testing DVT prophylaxis; SCDs/subcu heparin CODE STATUS; full code
[2021-04-01] MEDS: AMITRIPTYLINE HCL 10 MG TAB PO SCH (21:13)
[2021-04-01] MEDS: ACETAMINOPHEN TAB 325 MG TAB PO PRN (22:18)
--- NOTE | 2021-04-02 08:19 | P.PN ---
Subjective Progress Note Date: 04/01/21 Principal diagnosis: Altered mental status with expressive aphasia; metabolic encephalopathy versus CVA Accelerated hypertension Hypercalcemia/possible dehydration 89-year-old female with history of hypertension, presenting to the emergency department via EMS with her daughter with concerns of altered mental status. Patient does live with her daughter at this time. Normally patient is alert and oriented 4, she gets around very well. States that over the past 24 hours she seems slightly confused, she thought her daughter was her that has passed, thought the cat was a pillow. Patient was recently treated for UTI about 2-3 weeks ago, and she acted about the same way. Daughter is concerned that the UTI has returned. Patient has no specific complaints at this time. She denies any chest pain or shortness of breath, no abdominal pain, no dysuria. She was also recently treated for a skin infection to her right lower leg after she skinned her leg on her walker. She finished the antibiotic 2 days ago. Patient has had no fevers, her appetite has been low over the past 2 days. There are no further complaints at this time. Upon arrival to the ER, she is afebrile, blood pressure is elevated at 196/100, and rest of vitals normal. EKG Findings:: Sinus tachycardia, otherwise normal ECG. Ventricular rate 104, MI interval 172, QT 346. Laboratory review shows a WBC of 7.1, hemoglobin 10.7, hematocrit 32 when and in platelet count of 317, sodium 133, potassium 4.3, BUN 16/creatinine of 0.446 CT of the brain done in ED reveals degenerative and nonspecific white matter changes most typical of remote ischemia, no acute hemorrhage or mass effect 03/30/2021 Patient is seen and evaluated. Patient was admitted with mental status changes along with elevated BP. Her BP still reads at 175/99 mmHG. Patient is compliant with her HTN medications. Patient is afebrile with no chills, cough, nausea, vomiting, diarrhea. Patient's WBC count is 7.1, Hbg is 10.7. Patient's tropinin levels are normal . There are no further complaints at this time and the rest of her vitals, besides her BP is normal. After Cardiology consultation, cardiology decided and agreed with a clonidine patch for now to maintain her BP at normal level. It was suggested that upon return to normal mental status, patient should be switched back to oral medications with an increase in dosage of Losartan; Metoprolol is recommended to be changed to carvedilol once Clonidine is discontinued. 03/31/2021 Patient is seen and evaluated in room with family members at bedside; patient is more awake and alert this morning; does complain of some dizziness Vital signs are reviewed with temperature 98.3, pulse 89, distention 16 and blood pressure 154/92 Lab review shows WBC of 8.9, hemoglobin 10.2 with platelet count of 309, sodium 134, potassium 2.4, BUN/creatinine of 12.2/0.5 with blood glucose of 139; MRI of the brain reveals chronic small vessel ischemic changes; EEG was abnormal due to background slowing of mild to moderate degree. This is suggestive of generalized cerebral dysfunction as can be seen with toxic metabolic encephalopathy or due to diffuse structural brain abnormality. No epileptiform activity was seen 2-D echo revealed normal left ventricular size. Moderate concentric LVH. EF is between 60-65%. Left atrium is mildly dilated. Mild aortic valve sclerosis. Mild MBP. No embolic source Patient reevaluated by neurology and recommended to continue aspirin 162 mg daily which will be transitioned to 81 mg daily after 3 months; patient recommended optimal blood pressure control and to avoid hypotension; tramadol is recommended to be discontinued; no further recommendations from neurology Cardiology recommending addition of Aldactone for improved blood pressure control 04/01/2021 Patient is seen and evaluated in room at bedside. Patient is asymptomatic from a cardiac viewpoint. Her blood pressure is slightly better but not ideal and patient is slightly tachycardic as well. Patient is going to be started on a small dose of beta felice. Yesterday she was restarted on Aldactone to improve blood pressure control. Continue with supportive care and current medical regimen. Temperature is at 99.2, Pulse is at 111, Resp is at 18, BP is at 154/82, and Pulse ox is 99%. MRI of the brain was performed, which revealed age-related atrophic and chronic small vessel ischemic change. Carotid Doppler revealed mild plaque bilateral bifurcation. No hemodynamically significant stenosis. Antegrade flow in both vertebral arteries. EEG was abnormal due to background slowing of mild to moderate degree. This is suggestive of generalized cerebral dysfunction as can be seen with toxic metabolic encephalopathy or due to diffuse structural brain abnormality. No epileptiform activity was seen. 2-D echo revealed normal left ventricular size. Moderate concentric LVH. EF is between 60-65%. Left atrium is mildly dilated. Mild aortic valve sclerosis. Mild MBP. No embolic source. Neurology has signed off Patient can be dc'ed in next 24 hrs once cleared by cardiology service that's still dealing with uncontrolled HTN; patient will dc home with family Objective - Vital Signs Vital signs: Vital Signs Temp 98.1 F 04/01/21 15:00 Pulse 121 H 04/01/21 15:00 Resp 16 04/01/21 15:00 BP 128/80 04/01/21 15:00 Pulse Ox 99 04/01/21 15:00 Intake & Output 03/31/21 04/01/21 04/01/21 18:59 06:59 18:59 Intake Total 540 Output Total 1000 Balance 540 -1000 Intake: Oral 540 Output: Urine 1000 Straight 500 Other: Voiding Method External Catheter # Voids 3 # Bowel Movements 2 0 - Exam - Constitutional General appearance: Present: average body habitus, cooperative, no acute distres - Neck Neck: Present: normal ROM. Absent: lymphadenopathy, rigidity, thyromegaly Carotids: negative: bruit present Thyroid: bilateral: normal size, negative: enlarged, nodule Respiratory: bilateral: CTA, negative: rales, rhonchi, wheezing - Cardiovascular Rhythm: regular Heart sounds: normal: S1, S2 Abnormal Heart Sounds: Absent: systolic murmur, diastolic murmur General gastrointestinal: Present: normal bowel sounds, soft. Absent: distended, organomegaly, tenderness Genitourinary Comment(s): deferred Integumentary: Present: normal turgor. Absent: jaundiced, rash, ulcer Neurologic: Patient remains alert but confused: CNII-XII intact. Absent: focal deficits Musculoskeletal: Present: gait normal, strength equal bilaterally - Labs CBC & Chem 7: 03/31/21 05:55 03/31/21 05:55 Assessment and Plan Assessment: 1. Altered mental status with expressive aphasia; metabolic encephalopathy versus CVA - Patient has been evaluated by neurology and is recommended MRI of the brain, carotid Dopplers; EEG to rule out encephalopathy - Consult PT/OT/ESTHETICIAN/SKIN THERAPIST - Patient has been placed on aspirin 300 mg rectally; lab work is reviewed and stable - Previous blood work reviewed reveals a B12 level of 575 and TSH of 1.33 - Toradol is recommended to be discontinued 2. Accelerated hypertension; blood pressures currently at 175/99; neurology. Patient to be treated for hypertension but recommending to wait hypotension; we will start on home antihypertensive therapy continued to monitor closely for any further adjustments 3. Hypercalcemia/possible dehydration; IV fluid hydration with D5 half-normal saline at rate of 75 mL an hour; we will repeat renal function and electrolytes and calcium levels tomorrow 4. Hyperlipidemia; patient currently is not on any statin therapy; we will order lipid profile and await results of further testing DVT prophylaxis; SCDs/subcu heparin CODE STATUS; full code
[2021-04-02] MEDS ORDERED: METOPROLOL SUCCINATE (ER) 25 MG TAB.ER.24H PO SCH (09:00)
[2021-04-02] MEDS ORDERED: METOPROLOL SUCCINATE (ER) 50 MG TAB.ER.24H PO SCH (09:00)
[2021-04-02 09:51] LABS: Basophils # (A) 0.1 k/uL (0-0.2); Basophils % (A) 1 %; Eosinophils # (A) 0.1 k/uL (0-0.7); Eosinophils % (A) 1 %; HGB 10.6 gm/dL (11.4-16.0); Lymphocytes # (A) 1.7 k/uL (1.0-4.8); Lymphocytes % (A) 30 %; MCHC 33.3 g/dL (31.0-37.0); Mean Platelet Volume 7.9; Monocytes # (A) 0.3 k/uL (0-1.0); Monocytes % (A) 5 %; Neutrophils # (A) 3.5 k/uL (1.3-7.7); Neutrophils % (A) 62 %; Platelet Count 330 k/uL (150-450); RBC 3.56 m/uL (3.80-5.40); RDW 14.1 % (11.5-15.5); WBC 5.7 k/uL (3.8-10.6)
[2021-04-02] MEDS: SPIRONOLACTONE 25 MG TAB PO SCH (09:57)
[2021-04-02] MEDS: LOSARTAN 50 MG TAB PO SCH (09:57)
[2021-04-02] MEDS: ASPIRIN 81 MG PO SCH (09:57)
[2021-04-02] MEDS: PANTOPRAZOLE 40 MG TABLET PO SCH (09:57)
[2021-04-02 10:03] LABS: African American GFR (CKD) >90 (>60 ml/min/1.73 sqM); Anion Gap 11 mmol/L; Blood Urea Nitrogen 10 mg/dL (7-17); Calcium 9.9 mg/dL (8.4-10.2); Carbon Dioxide 25 mmol/L (22-30); Chloride 95 mmol/L (98-107); Glucose 215 mg/dL (74-99); Non-African American GFR(CKD) 88 (>60 ml/min/1.73 sqM); Potassium 3.4 mmol/L (3.5-5.1); Sodium 131 mmol/L (137-145)
[2021-04-02] MEDS ORDERED: Potassium Replacement Protocol 1 EACH MISC MISCELLANE PRN (11:00)
[2021-04-02] MEDS: POTASSIUM CHLORIDE ER 20 MEQ TAB.ER PO SCH (12:34)
--- NOTE | 2021-04-02 12:52 | P.PN ---
Subjective Progress Note Date: 04/02/21 HISTORY OF PRESENT ILLNESS: Hypertension urgency The patient is a pleasant 89-year-old female patient was admitted to the hospital initially with a change in mental status and also with urinary tract infection. We consulted to see the patient for blood pressure management. The patient was seen this morning. She is asymptomatic from a cardiac standpoint overview. The blood pressure is a slightly better but still not ideal and she is slightly tachycardic as well. I'm going to start her on small dose of beta felice was Toprol-XL which are her home meds. Yesterday she was restarted on Aldactone. Otherwise we'll continue with the rest of the current medical regimen. 04/02/2021 Patient examined this morning at the bedside. Patient denies chest pain or pressure. Denies shortness of breath. Patient remains tachycardic with a heart rate in the low 100s. Blood pressure 161/88. PHYSICAL EXAM: VITAL SIGNS: Reviewed. GENERAL: Well-developed in no acute distress. NECK: Supple. No JVD or thyromegaly LUNGS: Respirations even and unlabored. Lungs essentially clear to auscultation bilaterally. HEART: Regular rate and rhythm. S1 and S2 heard. EXTREMITIES: Normal range of motion. No clubbing or cyanosis. Peripheral pulses intact. No lower extremity edema ASSESSMENT: Altered mental status Urinary tract infection Sinus tachycardia Hypertensive urgency PLAN: Discontinue clonidine patch Increase metoprolol to 50 mg daily Continue losartan 50 mg daily. If blood pressure remains elevated may increase losartan to 100 mg daily Further recommendations pending patient's course Nurse practitioner note has been reviewed by physician. Signing provider agrees with the documented findings, assessment, and plan of care. Objective - Vital Signs Vital signs: Vital Signs Temp 97.8 F 04/02/21 07:36 Pulse 107 H 04/02/21 07:36 Resp 18 04/02/21 07:36 BP 161/88 04/02/21 07:36 Pulse Ox 98 04/02/21 07:36 Intake & Output 04/01/21 04/02/21 04/02/21 18:59 06:59 18:59 Output Total 375 675 Balance -375 -675 Output: Urine 375 675 Other: Voiding Method Indwelling Catheter Indwelling Catheter # Bowel Movements 1 - Labs CBC & Chem 7: 04/02/21 09:29 04/02/21 09:29 Labs: Abnormal Lab Results - Last 24 Hours (Table) 04/02/21 04/02/21 Range/Units 09:29 09:29 RBC 3.56 L (3.80-5.40) m/uL Hgb 10.6 L (11.4-16.0) gm/dL Hct 32.0 L (34.0-46.0) % Sodium 131 L (137-145) mmol/L Potassium 3.4 L (3.5-5.1) mmol/L Chloride 95 L (98-107) mmol/L Creatinine 0.47 L (0.52-1.04) mg/dL Glucose 215 H (74-99) mg/dL
--- NOTE | 2021-04-02 13:39 | P.DS ---
Providers Date of admission: 03/30/21 10:10 Attending physician: Savanna Oro Consults: 03/28/21 19:34 Consult Physician Urgent Consulting Provider: Emili Singer Consult Reason/Comments: confusion Do you want consulting provider notified?: Yes, Notify in am 03/29/21 07:23 Consult Physician Urgent Consulting Provider: Marquis Sanabria Consult Reason/Comments: Elevated BP and HR Do you want consulting provider notified?: Yes, Notify in am Primary care physician: Evita Roche Patient Condition at Discharge: Stable Plan - Discharge Summary Discharge Rx Participant: Yes New Discharge Prescriptions: New Metoprolol Succinate (ER) [Toprol XL] 50 mg PO DAILY #30 tablet Aspirin 162 mg PO DAILY #30 tab Continue Amitriptyline HCl 40 mg PO HS Losartan Potassium 50 mg PO DAILY Ergocalciferol (Vitamin D2) [Drisdol (50,000 Iu)] 1,250 mcg PO MO traMADol HCL 50 mg PO QID Zinc Picolinate 22mg 1 tab PO DAILY Pantoprazole Sodium [Protonix] 40 mg PO DAILY #30 tablet. Vitamin C Er 500mg 1 tab PO BID Acetaminophen Tab [Tylenol] 500 mg PO QID Discontinued Metoprolol Succinate (ER) [Toprol XL] 25 mg PO HS Discharge Medication List Amitriptyline HCl 40 mg PO HS 06/08/20 [History] Ergocalciferol (Vitamin D2) [Drisdol (50,000 Iu)] 1,250 mcg PO MO 06/08/20 [History] Losartan Potassium 50 mg PO DAILY 06/08/20 [History] Pantoprazole Sodium [Protonix] 40 mg PO DAILY #30 tablet. 09/21/20 [Rx] Acetaminophen Tab [Tylenol] 500 mg PO QID 03/28/21 [History] Vitamin C Er 500mg 1 tab PO BID 03/28/21 [History] Zinc Picolinate 22mg 1 tab PO DAILY 03/28/21 [History] traMADol HCL 50 mg PO QID 03/28/21 [History] Aspirin 162 mg PO DAILY #30 tab 04/02/21 [Rx] Metoprolol Succinate (ER) [Toprol XL] 50 mg PO DAILY #30 tablet 04/02/21 [Rx] Follow up Appointment(s)/Referral(s): Evita Roche MD [Primary Care Provider] - 04/09/21 2:00 pm Discharge Disposition: HOME WITH HOSPICE
--- NOTE | 2021-04-02 13:43 | P.DS ---
Providers Date of admission: 03/30/21 10:10 Attending physician: Savanna Oro Consults: 03/28/21 19:34 Consult Physician Urgent Consulting Provider: Emili Singer Consult Reason/Comments: confusion Do you want consulting provider notified?: Yes, Notify in am 03/29/21 07:23 Consult Physician Urgent Consulting Provider: Marquis Sanabria Consult Reason/Comments: Elevated BP and HR Do you want consulting provider notified?: Yes, Notify in am Primary care physician: [facility] Course: A 89-year-old female came in with expressive aphasia and probable confusion the cause of her confusion and expressive aphasia is believed to be mostly metabolic encephalopathy although transient ischemia cannot be ruled out patient underwent extensive workup follow which is negative. Considering her age and co morbidities family decided on conservative measures and the patient will be made hospice as an outpatient. Patient does have history of atrial fibrillation not on any anticoagulation at this time because patient most probably will be hospice upon discharge. Patient was also treated for dehydration and accelerated hypertension. Patient has problems with urination patient does have a Flores cath at this time PHYSICAL EXAMINATION: GENERAL: The patient is alert , not in any acute distress. Well developed, well nourished. HEENT: Pupils are round and equally reacting to light. EOMI. No scleral icterus. No conjunctival pallor. Normocephalic, atraumatic. No pharyngeal erythema. No thyromegaly. CARDIOVASCULAR: S1 and S2 present. No murmurs, rubs, or gallops. PULMONARY: Chest is clear to auscultation, no wheezing or crackles. ABDOMEN: Soft, nontender, nondistended, normoactive bowel sounds. No palpable organomegaly. MUSCULOSKELETAL: No joint swelling or deformity. EXTREMITIES: No cyanosis, clubbing, or pedal edema. NEUROLOGICAL: Gross neurological examination did not reveal any focal deficits. She does have generalized weakness does have a Flores catheter SKIN: No rashes. Assessment and plan 1. Altered mental status with expressive aphasia; metabolic encephalopathy versus CVA - Patient has been evaluated by neurology and is recommended MRI of the brain, carotid Dopplers; EEG to rule out encephalopathy Patient will be discharged today 2. Accelerated hypertension; improved now 3. Hypercalcemia/possible dehydration; IV fluid hydration with D5 half-normal saline at rate of 75 mL an hour; we will repeat renal function and electrolytes and calcium levels tomorrow 4. Hyperlipidemia; patient currently is not on any statin therapy; we will order lipid profile and await results of further testing 5. Sinus tachycardia Patient Condition at Discharge: Stable Plan - Discharge Summary Discharge Rx Participant: Yes New Discharge Prescriptions: New Metoprolol Succinate (ER) [Toprol XL] 50 mg PO DAILY #30 tablet Aspirin 162 mg PO DAILY #30 tab Continue Amitriptyline HCl 40 mg PO HS Losartan Potassium 50 mg PO DAILY Ergocalciferol (Vitamin D2) [Drisdol (50,000 Iu)] 1,250 mcg PO MO traMADol HCL 50 mg PO QID Zinc Picolinate 22mg 1 tab PO DAILY Pantoprazole Sodium [Protonix] 40 mg PO DAILY #30 tablet. Vitamin C Er 500mg 1 tab PO BID Acetaminophen Tab [Tylenol] 500 mg PO QID Discontinued Metoprolol Succinate (ER) [Toprol XL] 25 mg PO HS Discharge Medication List Amitriptyline HCl 40 mg PO HS 06/08/20 [History] Ergocalciferol (Vitamin D2) [Drisdol (50,000 Iu)] 1,250 mcg PO MO 06/08/20 [History] Losartan Potassium 50 mg PO DAILY 06/08/20 [History] Pantoprazole Sodium [Protonix] 40 mg PO DAILY #30 tablet. 09/21/20 [Rx] Acetaminophen Tab [Tylenol] 500 mg PO QID 03/28/21 [History] Vitamin C Er 500mg 1 tab PO BID 03/28/21 [History] Zinc Picolinate 22mg 1 tab PO DAILY 03/28/21 [History] traMADol HCL 50 mg PO QID 03/28/21 [History] Aspirin 162 mg PO DAILY #30 tab 04/02/21 [Rx] Metoprolol Succinate (ER) [Toprol XL] 50 mg PO DAILY #30 tablet 04/02/21 [Rx] Follow up Appointment(s)/Referral(s): Evita Roche MD [Primary Care Provider] - 04/09/21 2:00 pm Discharge Disposition: HOME WITH HOSPICE
[2021-04-02 14:12] VITALS: BP 108/70; PULSE 110; RESP 16; TEMP 98.9
== END 2021-04-02 16:27 | disposition hospice, home (50) | DRG 71 ==
LOC: EC 16:17 → 4SSUR 20:08 → OBSVTOIN 03-30 10:10
PROVIDERS: ADMIT Hospitalist; ATTEND Hospitalist
DX: G93.41 Metabolic encephalopathy (principal); R47.01 Aphasia; E87.1 Hypo-osmolality and hyponatremia; I16.0 Hypertensive urgency; Z20.822 Contact with and (suspected) exposure to COVID-19; E83.52 Hypercalcemia; E86.0 Dehydration; R47.02 Dysphasia; I35.8 Other nonrheumatic aortic valve disorders; E78.5 Hyperlipidemia, unspecified; M19.90 Unspecified osteoarthritis, unspecified site; I10 Essential (primary) hypertension; G89.29 Other chronic pain; D64.9 Anemia, unspecified; R00.0 Tachycardia, unspecified; M54.9 Dorsalgia, unspecified; R32 Unspecified urinary incontinence; Z79.891 Long term (current) use of opiate analgesic; Z79.899 Other long term (current) drug therapy; Z86.16 Personal history of COVID-19; Z87.440 Personal history of urinary (tract) infections; Z85.828 Personal history of other malignant neoplasm of skin; Z87.19 Personal history of other diseases of the digestive system; Z86.79 Personal history of other diseases of the circulatory system; Z98.890 Other specified postprocedural states; Z88.0 Allergy status to penicillin; Z88.2 Allergy status to sulfonamides; Z88.8 Allergy status to other drugs, medicaments and biological substances
CPT/HCPCS: 36415; 70450; 70551; 71045; 71046; 80048; 80053; 80061; 81003; 83036; 84484; 85025; 85027; 85610; 85730; 87635; 93005; 93306; 93880; 95816; 96361; 96374; 99285

== ENCOUNTER 2021-07-21 00:31 | Inpatient (IN) | payer MEDICARE, BC ==
[2021-07-21 02:00] LABS: Anisocytosis Slight; Basophils # (A) 0.1 k/uL (0-0.2); Basophils % (A) 1 %; Eosinophils # (A) 0.1 k/uL (0-0.7); Eosinophils % (A) 1 %; HCT 22.2 % (34.0-46.0); Hypochromasia Marked; Lymphocytes % (A) 49 %; MCH 23.5 pg (25.0-35.0); MCHC 29.6 g/dL (31.0-37.0); MCV 79.4 fL (80.0-100.0); Mean Platelet Volume 8.4; Microcytosis Slight; Monocytes # (A) 0.4 k/uL (0-1.0); Monocytes % (A) 7 %; Neutrophils # (A) 2.3 k/uL (1.3-7.7); Neutrophils % (A) 38 %; Platelet Count 350 k/uL (150-450); Poikilocytosis Slight; RBC 2.79 m/uL (3.80-5.40); RDW 16.9 % (11.5-15.5); WBC 6.2 k/uL (3.8-10.6)
[2021-07-21 02:10] LABS: HGB 6.6 gm/dL (11.4-16.0)
[2021-07-21 02:15] LABS: Albumin 4.1 g/dL (3.5-5.0); Calcium 9.5 mg/dL (8.4-10.2); Potassium 4.1 mmol/L (3.5-5.1); Total Bilirubin 0.5 mg/dL (0.2-1.3); Total Protein 7.1 g/dL (6.3-8.2)
[2021-07-21 02:20] LABS: Partial Thromboplastin Time 23.3 sec (22.0-30.0); Prothrombin Time 10.5 sec (9.0-12.0)
[2021-07-21] MEDS ORDERED: NALOXONE 0.4 MG/ML 1 ML VIAL IV PRN (03:19)
--- NOTE | 2021-07-21 03:19 | ED ---
Recheck HPI - General Chief Complaint: Recheck/Abnormal Lab/Rx Stated Complaint: Low Hemoglobin Time Seen by Provider: 07/21/21 00:41 Source: patient, EMS Mode of arrival: EMS - History of Present Illness Initial Comments: 89-year-old female patient presented to the emergency department today at the request of her physician after having low hemoglobin outpatient lab draw yesterd ay. Patient daughter is present and states that she has been sleeping almost 23 hours a day for the last couple of weeks. Went in for routine physical exam and they gustavo labs due to her symptoms. Patient denies any chest pain or shortness of breath. Denies any abdominal pain. Denies any constipation, diarrhea, hematochezia, or melena. States she has had low hemoglobin in the past. They are unable to find a source, they thought maybe GI bleed. Should have colonoscopy in May which was normal. Patient denies any recent rash, fever, chills, cough, nausea, vomiting, back pain, numbness, tingling, dizziness, hematuria, dysuria, urinary urgency, urinary frequency, headache, visual cornejo ges, or any other complaints. - Related Data Home Medications Medication Instructions Recorded Confirmed Amitriptyline HCl 40 mg PO HS 06/08/20 03/28/21 Ergocalciferol (Vitamin D2) 1,250 mcg PO MO 06/08/20 03/28/21 [Drisdol (50,000 Iu)] Losartan Potassium 50 mg PO DAILY 06/08/20 03/28/21 Acetaminophen Tab [Tylenol] 500 mg PO QID 03/28/21 03/28/21 Vitamin C Er 500mg 1 tab PO BID 03/28/21 03/28/21 Zinc Picolinate 22mg 1 tab PO DAILY 03/28/21 03/28/21 traMADol HCL 50 mg PO QID 03/28/21 03/28/21 Previous Rx's Medication Instructions Recorded Pantoprazole Sodium [Protonix] 40 mg PO DAILY #30 tablet. 09/21/20 Aspirin 162 mg PO DAILY #30 tab 04/02/21 Metoprolol Succinate (ER) [Toprol 50 mg PO DAILY #30 tablet 04/02/21 XL] Allergies Allergy/AdvReac Type Severity Reaction Status Date / Time cephalexin [From Keflex] Allergy Itching Verified 07/21/21 00:44 iodine Allergy Unknown Verified 07/21/21 00:44 nystatin Allergy Rash/Hives Verified 07/21/21 00:44 Penicillins Allergy Swelling Verified 07/21/21 00:44 pregabalin [From Lyrica] Allergy Blurred Verified 07/21/21 00:44 Vision sulfamethoxazole Allergy Unknown Verified 07/21/21 00:44 [From Bactrim] triamcinolone [From Kenalog] Allergy Rash/Hives Verified 07/21/21 00:44 trimethoprim [From Bactrim] Allergy Unknown Verified 07/21/21 00:44 clindamycin AdvReac Diarrhea Verified 07/21/21 00:44 hydrochlorothiazide AdvReac Dizziness Verified 07/21/21 00:44 ropinirole [From Requip] AdvReac Dizziness Verified 07/21/21 00:44 simvastatin [From Zocor] AdvReac Muscle Pain Verified 07/21/21 00:44 Review of Systems ROS Statement: Those systems with pertinent positive or pertinent negative responses have been documented in the HPI. ROS Other: All systems not noted in ROS Statement are negative. Past Medical History Past Medical History: Hyperlipidemia, Hypertension, Osteoarthritis (OA) Additional Past Medical History / Comment(s): UTI, skin cancer, vulvadenia, chronic back pain, umbilical hernia History of Any Multi-Drug Resistant Organisms: None Reported Past Surgical History: No Surgical Hx Reported Additional Past Surgical History / Comment(s): skin CA removal from forehead and nose Past Anesthesia/Blood Transfusion Reactions: No Reported Reaction Past Psychological History: No Psychological Hx Reported Smoking Status: Never smoker Past Alcohol Use History: None Reported Past Drug Use History: None Reported General Exam General appearance: alert, in no apparent distress, other (This is a well- developed, well-nourished elderly female patient in no acute distress.) ENT exam: Present: normal exam, mucous membranes moist Respiratory exam: Present: normal lung sounds bilaterally. Absent: respiratory distress, wheezes, rales, rhonchi, stridor Cardiovascular Exam: Present: regular rate, normal rhythm, normal heart sounds. Absent: systolic murmur, diastolic murmur, rubs, gallop, clicks GI/Abdominal exam: Present: soft, normal bowel sounds. Absent: distended, tenderness, guarding, rebound, rigid Neurological exam: Present: alert, oriented X3, CN II-XII intact Psychiatric exam: Present: normal affect, normal mood Skin exam: Present: warm, dry, intact, pallor. Absent: rash Course Vital Signs 07/21/21 07/21/21 00:44 02:43 Temperature 98.0 F Pulse Rate 87 84 Respiratory 17 20 Rate Blood Pressure 131/78 146/78 O2 Sat by Pulse 96 97 Oximetry Medical Decision Making - Medical Decision Making 89-year-old female patient presenting after the request of her physician for low hemoglobin an outpatient blood draw. Physical examination did reveal skin pallor. Abdomen soft and nontender. She is alert. Vital signs within normal range. Labs reviewed and did reveal a hemoglobin of 6.6. Occult stool was negative however it was a poor sample, mostly mucus. Patient will be given 1 unit of packed red blood cells. Admitted to the hospital for repeat labs and further evaluation. Patient and her daughter are agreeable to this plan. My attending is Dr. Heller. - Lab Data Result diagrams: 07/21/21 00:58 07/21/21 00:58 Lab Results 07/21/21 07/21/21 07/21/21 Range/Units 00:58 00:58 00:58 WBC 6.2 (3.8-10.6) k/uL RBC 2.79 L (3.80-5.40) m/uL Hgb 6.6 L* (11.4-16.0) gm/dL Hct 22.2 L (34.0-46.0) % MCV 79.4 L (80.0-100.0) fL MCH 23.5 L (25.0-35.0) pg MCHC 29.6 L (31.0-37.0) g/dL RDW 16.9 H (11.5-15.5) % Plt Count 350 (150-450) k/uL MPV 8.4 Neutrophils % 38 % Lymphocytes % 49 % Monocytes % 7 % Eosinophils % 1 % Basophils % 1 % Neutrophils # 2.3 (1.3-7.7) k/uL Lymphocytes # 3.0 (1.0-4.8) k/uL Monocytes # 0.4 (0-1.0) k/uL Eosinophils # 0.1 (0-0.7) k/uL Basophils # 0.1 (0-0.2) k/uL Hypochromasia Marked Poikilocytosis Slight Anisocytosis Slight Microcytosis Slight PT 10.5 (9.0-12.0) sec INR 1.0 (<1.2) APTT 23.3 (22.0-30.0) sec Sodium (137-145) mmol/L Potassium (3.5-5.1) mmol/L Chloride (98-107) mmol/L Carbon Dioxide (22-30) mmol/L Anion Gap mmol/L BUN (7-17) mg/dL Creatinine (0.52-1.04) mg/dL Est GFR (CKD-EPI)AfAm (>60 ml/min/1.73 sqM) Est GFR (CKD-EPI)NonAf (>60 ml/min/1.73 sqM) Glucose (74-99) mg/dL Calcium (8.4-10.2) mg/dL Total Bilirubin (0.2-1.3) mg/dL AST (14-36) U/L ALT (4-34) U/L Alkaline Phosphatase (38-126) U/L Troponin I (0.000-0.034) ng/mL Total Protein (6.3-8.2) g/dL Albumin (3.5-5.0) g/dL Stool Occult Blood Negative (Negative) Blood Type Blood Type Confirm Blood Type Recheck Bld Type Recheck Status Antibody Screen Crossmatch Spec Expiration Date 07/21/21 07/21/21 07/21/21 Range/Units 00:58 00:58 00:58 WBC (3.8-10.6) k/uL RBC (3.80-5.40) m/uL Hgb (11.4-16.0) gm/dL Hct (34.0-46.0) % MCV (80.0-100.0) fL MCH (25.0-35.0) pg MCHC (31.0-37.0) g/dL RDW (11.5-15.5) % Plt Count (150-450) k/uL MPV Neutrophils % % Lymphocytes % % Monocytes % % Eosinophils % % Basophils % % Neutrophils # (1.3-7.7) k/uL Lymphocytes # (1.0-4.8) k/uL Monocytes # (0-1.0) k/uL Eosinophils # (0-0.7) k/uL Basophils # (0-0.2) k/uL Hypochromasia Poikilocytosis Anisocytosis Microcytosis PT (9.0-12.0) sec INR (<1.2) APTT (22.0-30.0) sec Sodium 133 L (137-145) mmol/L Potassium 4.1 (3.5-5.1) mmol/L Chloride 96 L (98-107) mmol/L Carbon Dioxide 29 (22-30) mmol/L Anion Gap 8 mmol/L BUN 13 (7-17) mg/dL Creatinine 0.68 (0.52-1.04) mg/dL Est GFR (CKD-EPI)AfAm 90 (>60 ml/min/1.73 sqM) Est GFR (CKD-EPI)NonAf 78 (>60 ml/min/1.73 sqM) Glucose 122 H (74-99) mg/dL Calcium 9.5 (8.4-10.2) mg/dL Total Bilirubin 0.5 (0.2-1.3) mg/dL AST 18 (14-36) U/L ALT 8 (4-34) U/L Alkaline Phosphatase 93 (38-126) U/L Troponin I <0.012 (0.000-0.034) ng/mL Total Protein 7.1 (6.3-8.2) g/dL Albumin 4.1 (3.5-5.0) g/dL Stool Occult Blood (Negative) Blood Type B Positive Blood Type Confirm Blood Type Recheck No Previous Record Bld Type Recheck Status CABO Indicated Antibody Screen NEGATIVE Crossmatch See Detail Spec Expiration Date 07/24/2021 - 235707/21/21 Range/Units 01:55 WBC (3.8-10.6) k/uL RBC (3.80-5.40) m/uL Hgb (11.4-16.0) gm/dL Hct (34.0-46.0) % MCV (80.0-100.0) fL MCH (25.0-35.0) pg MCHC (31.0-37.0) g/dL RDW (11.5-15.5) % Plt Count (150-450) k/uL MPV Neutrophils % % Lymphocytes % % Monocytes % % Eosinophils % % Basophils % % Neutrophils # (1.3-7.7) k/uL Lymphocytes # (1.0-4.8) k/uL Monocytes # (0-1.0) k/uL Eosinophils # (0-0.7) k/uL Basophils # (0-0.2) k/uL Hypochromasia Poikilocytosis Anisocytosis Microcytosis PT (9.0-12.0) sec INR (<1.2) APTT (22.0-30.0) sec Sodium (137-145) mmol/L Potassium (3.5-5.1) mmol/L Chloride (98-107) mmol/L Carbon Dioxide (22-30) mmol/L Anion Gap mmol/L BUN (7-17) mg/dL Creatinine (0.52-1.04) mg/dL Est GFR (CKD-EPI)AfAm (>60 ml/min/1.73 sqM) Est GFR (CKD-EPI)NonAf (>60 ml/min/1.73 sqM) Glucose (74-99) mg/dL Calcium (8.4-10.2) mg/dL Total Bilirubin (0.2-1.3) mg/dL AST (14-36) U/L ALT (4-34) U/L Alkaline Phosphatase (38-126) U/L Troponin I (0.000-0.034) ng/mL Total Protein (6.3-8.2) g/dL Albumin (3.5-5.0) g/dL Stool Occult Blood (Negative) Blood Type Blood Type Confirm B Positive Blood Type Recheck Bld Type Recheck Status Antibody Screen Crossmatch Spec Expiration Date Disposition Clinical Impression: Anemia Disposition: ADMITTED IP TO THIS [facility] Condition: Serious Referrals: Evita Roche MD [Primary Care Provider] - 1-2 days Decision to Admit Reason: Admit from EC Decision Date: 07/21/21 Decision Time: 03:19
[2021-07-21 08:19] LABS: Anisocytosis Slight; HCT 24.8 % (34.0-46.0); HGB 7.6 gm/dL (11.4-16.0); Hypochromasia Marked; MCH 24.9 pg (25.0-35.0); MCHC 30.7 g/dL (31.0-37.0); MCV 81.3 fL (80.0-100.0); Mean Platelet Volume 8.6; Platelet Count 308 k/uL (150-450); Poikilocytosis Moderate; RBC 3.05 m/uL (3.80-5.40); RDW 16.6 % (11.5-15.5); WBC 6.4 k/uL (3.8-10.6)
--- NOTE | 2021-07-21 10:39 | P.GSCN ---
History of Present Illness Consult date: 07/21/21 Reason for Consult: Anemia, GI bleed History of present illness: This is an 89-year-old female who was admitted through the emergency room. Raheem grayson has had a history of some bloody stools approximately 2 weeks ago. She was seen by her PCP and sent to the emergency room due to her critical anemia. Patient's currently receiving packed red blood cells. She denies any abdominal pain. Her hemoglobin is 6.6. Past Medical History Past Medical History: Hyperlipidemia, Hypertension, Osteoarthritis (OA) Additional Past Medical History / Comment(s): UTI, skin cancer, vulvadenia, chronic back pain, umbilical hernia History of Any Multi-Drug Resistant Organisms: None Reported Past Surgical History: No Surgical Hx Reported Additional Past Surgical History / Comment(s): skin CA removal from forehead and nose Past Anesthesia/Blood Transfusion Reactions: No Reported Reaction Past Psychological History: No Psychological Hx Reported Smoking Status: Never smoker Past Alcohol Use History: None Reported Past Drug Use History: None Reported Medications and Allergies Home Medications Medication Instructions Recorded Confirmed Type Amitriptyline HCl 40 mg PO DAILY@1800 06/08/20 07/21/21 History Ergocalciferol (Vitamin D2) 1,250 mcg PO MO 06/08/20 07/21/21 History [Drisdol (50,000 Iu)] Losartan Potassium 50 mg PO DAILY 06/08/20 07/21/21 History Pantoprazole Sodium [Protonix] 40 mg PO DAILY #30 tablet. 09/21/20 07/21/21 Rx traMADol HCL 50 mg PO Q4H 03/28/21 07/21/21 History Aspirin 162 mg PO DAILY #30 tab 04/02/21 07/21/21 Rx Metoprolol Succinate (ER) [Toprol 25 mg PO DAILY 07/21/21 07/21/21 History Xl] Zinc 50 mg PO DAILY 07/21/21 07/21/21 History Allergies Allergy/AdvReac Type Severity Reaction Status Date / Time cephalexin [From Keflex] Allergy Itching Verified 07/21/21 08:31 iodine Allergy Unknown Verified 07/21/21 08:31 nystatin Allergy Rash/Hives Verified 07/21/21 08:31 Penicillins Allergy Swelling Verified 07/21/21 08:31 pregabalin [From Lyrica] Allergy Blurred Verified 07/21/21 08:31 Vision sulfamethoxazole Allergy Unknown Verified 07/21/21 08:31 [From Bactrim] triamcinolone [From Kenalog] Allergy Rash/Hives Verified 07/21/21 08:31 trimethoprim [From Bactrim] Allergy Unknown Verified 07/21/21 08:31 clindamycin AdvReac Diarrhea Verified 07/21/21 08:31 hydrochlorothiazide AdvReac Dizziness Verified 07/21/21 08:31 ropinirole [From Requip] AdvReac Dizziness Verified 07/21/21 08:31 simvastatin [From Zocor] AdvReac Muscle Pain Verified 07/21/21 08:31 Surgical - Exam Vital Signs Temp Pulse Resp BP Pulse Ox 98.0 F 87 17 131/78 96 07/21/21 00:44 07/21/21 00:44 07/21/21 00:44 07/21/21 00:44 07/21/21 00:44 - General well developed, well nourished, no distress - Eyes PERRL - ENT normal pinna - Neck no masses - Respiratory normal expansion - Cardiovascular Rhythm: regular - Abdomen Abdomen: soft, non tender Results - Labs 07/21/21 07:49 07/21/21 00:58 Abnormal Lab Results - Last 24 Hours (Table) 07/21/21 07/21/21 07/21/21 Range/Units 00:58 00:58 00:58 RBC 2.79 L (3.80-5.40) m/uL Hgb 6.6 L* (11.4-16.0) gm/dL Hct 22.2 L (34.0-46.0) % MCV 79.4 L (80.0-100.0) fL MCH 23.5 L (25.0-35.0) pg MCHC 29.6 L (31.0-37.0) g/dL RDW 16.9 H (11.5-15.5) % Sodium 133 L (137-145) mmol/L Chloride 96 L (98-107) mmol/L Glucose 122 H (74-99) mg/dL Crossmatch See Detail 07/21/21 Range/Units 07:49 RBC 3.05 L (3.80-5.40) m/uL Hgb 7.6 L (11.4-16.0) gm/dL Hct 24.8 L (34.0-46.0) % MCV (80.0-100.0) fL MCH 24.9 L (25.0-35.0) pg MCHC 30.7 L (31.0-37.0) g/dL RDW 16.6 H (11.5-15.5) % Sodium (137-145) mmol/L Chloride (98-107) mmol/L Glucose (74-99) mg/dL Crossmatch Diabetes panel 07/21/21 Range/Units 00:58 Sodium 133 L (137-145) mmol/L Potassium 4.1 (3.5-5.1) mmol/L Chloride 96 L (98-107) mmol/L Carbon Dioxide 29 (22-30) mmol/L BUN 13 (7-17) mg/dL Creatinine 0.68 (0.52-1.04) mg/dL Glucose 122 H (74-99) mg/dL Calcium 9.5 (8.4-10.2) mg/dL AST 18 (14-36) U/L ALT 8 (4-34) U/L Alkaline Phosphatase 93 (38-126) U/L Total Protein 7.1 (6.3-8.2) g/dL Albumin 4.1 (3.5-5.0) g/dL Calcium panel 07/21/21 Range/Units 00:58 Calcium 9.5 (8.4-10.2) mg/dL Albumin 4.1 (3.5-5.0) g/dL Pituitary panel 07/21/21 Range/Units 00:58 Sodium 133 L (137-145) mmol/L Potassium 4.1 (3.5-5.1) mmol/L Chloride 96 L (98-107) mmol/L Carbon Dioxide 29 (22-30) mmol/L BUN 13 (7-17) mg/dL Creatinine 0.68 (0.52-1.04) mg/dL Glucose 122 H (74-99) mg/dL Calcium 9.5 (8.4-10.2) mg/dL Adrenal panel 07/21/21 Range/Units 00:58 Sodium 133 L (137-145) mmol/L Potassium 4.1 (3.5-5.1) mmol/L Chloride 96 L (98-107) mmol/L Carbon Dioxide 29 (22-30) mmol/L BUN 13 (7-17) mg/dL Creatinine 0.68 (0.52-1.04) mg/dL Glucose 122 H (74-99) mg/dL Calcium 9.5 (8.4-10.2) mg/dL Total Bilirubin 0.5 (0.2-1.3) mg/dL AST 18 (14-36) U/L ALT 8 (4-34) U/L Alkaline Phosphatase 93 (38-126) U/L Total Protein 7.1 (6.3-8.2) g/dL Albumin 4.1 (3.5-5.0) g/dL Assessment and Plan Assessment: GI bleed. Patient will undergo upper and lower endoscopy on Friday.
[2021-07-21] MEDS: PANTOPRAZOLE 40 MG/10 ML VIAL IVP SCH (10:43)
[2021-07-21 12:25] LABS: % Iron Saturation 3.43 (12.00-45.00); Ferritin 11.3 ng/mL (10.0-291.0)
[2021-07-21 13:45] LABS: Anisocytosis Slight; HCT 25.3 % (34.0-46.0); HGB 7.9 gm/dL (11.4-16.0); Hypochromasia Marked; MCH 25.3 pg (25.0-35.0); MCHC 31.2 g/dL (31.0-37.0); MCV 81.1 fL (80.0-100.0); Platelet Count 300 k/uL (150-450); Poikilocytosis Moderate; RBC 3.12 m/uL (3.80-5.40); RDW 16.7 % (11.5-15.5); WBC 6.8 k/uL (3.8-10.6)
[2021-07-21 13:52] LABS: Folate, Serum 7.6 ng/mL (4.40-31.00)
[2021-07-21] MEDS: AMITRIPTYLINE HCL 10 MG TAB PO SCH (17:46)
--- NOTE | 2021-07-21 19:25 | P.HPIM ---
History of Present Illness This is a pleasant 89 years old female with past medical history Hyperlipidemia, Hypertension, Osteoarthritis , chronic back pain, umbilical hernia Patient presents with abnormal lab, she got a call from her PCP to go to the hospital for low hemoglobin. Patient went to see her doctor for routine physical exam while she is asymptomatic but only she's been feeling generalized weakness for a few days, her doctor call her today and ask her to come to emergency room because of low hemoglobin. She states she did notice bleeding from anywhere, her stool color is brown as usual. However records indicate that she has some GI bleed about 2 weeks ago. Denies chest pain or dyspnea. No coughing. No vomiting. No abdominal pain. No change in urine or bowel habits. No fever. No hepatic/dizziness. No w eakness or numbness. She denies smoking, alcohol or illicit tracts. Vitals are stable and blood pressure is stable. Labs show low hemoglobin 6.6 with previous reading was more than 10 few months ago. Platelet count normal INR, BMP and liver enzymes are unremarkable. Troponin is negative. Occult blood in the stool is negative. Haskins virus not detected. EKG showing normal sinus rhythm at 82 BPM with no significant ST-T changes Review of Systems CONSTITUTIONAL: No fever, no malaise, no fatigue. HEENT: No recent visual problems or hearing problems. Denied any sore throat. CARDIOVASCULAR: No orthopnea, PND, no palpitations, no syncope. PULMONARY: No shortness of breath, no cough, no hemoptysis. GASTROINTESTINAL: No diarrhea, no nausea, no vomiting, no abdominal pain. Normoactive bowel sounds. NEUROLOGICAL: No headaches, no weakness, no numbness. HEMATOLOGICAL: Denies any bleeding or petechiae. GENITOURINARY: Denies any burning micturition, frequency, or urgency. MUSCULOSKELETAL/RHEUMATOLOGICAL: Denies any joint pain, swelling, or any muscle pain. ENDOCRINE: Denies any polyuria or polydipsia. Past Medical History Past Medical History: Hyperlipidemia, Hypertension, Osteoarthritis (OA) Additional Past Medical History / Comment(s): UTI, skin cancer, vulvadenia, chronic back pain, umbilical hernia History of Any Multi-Drug Resistant Organisms: None Reported Past Surgical History: No Surgical Hx Reported Additional Past Surgical History / Comment(s): skin CA removal from forehead and nose Past Anesthesia/Blood Transfusion Reactions: No Reported Reaction Past Psychological History: No Psychological Hx Reported Smoking Status: Never smoker Past Alcohol Use History: None Reported Past Drug Use History: None Reported Medications and Allergies Home Medications Medication Instructions Recorded Confirmed Type Amitriptyline HCl 40 mg PO DAILY@1800 06/08/20 07/21/21 History Ergocalciferol (Vitamin D2) 1,250 mcg PO MO 06/08/20 07/21/21 History [Drisdol (50,000 Iu)] Losartan Potassium 50 mg PO DAILY 06/08/20 07/21/21 History Pantoprazole Sodium [Protonix] 40 mg PO DAILY #30 tablet.dr 09/21/20 07/21/21 Rx traMADol HCL 50 mg PO Q4H 03/28/21 07/21/21 History Aspirin 162 mg PO DAILY #30 tab 04/02/21 07/21/21 Rx Metoprolol Succinate (ER) [Toprol 25 mg PO DAILY 07/21/21 07/21/21 History Xl] Zinc 50 mg PO DAILY 07/21/21 07/21/21 History Allergies Allergy/AdvReac Type Severity Reaction Status Date / Time cephalexin [From Keflex] Allergy Itching Verified 07/21/21 08:31 iodine Allergy Unknown Verified 07/21/21 08:31 nystatin Allergy Rash/Hives Verified 07/21/21 08:31 Penicillins Allergy Swelling Verified 07/21/21 08:31 pregabalin [From Lyrica] Allergy Blurred Verified 07/21/21 08:31 Vision sulfamethoxazole Allergy Unknown Verified 07/21/21 08:31 [From Bactrim] triamcinolone [From Kenalog] Allergy Rash/Hives Verified 07/21/21 08:31 trimethoprim [From Bactrim] Allergy Unknown Verified 07/21/21 08:31 clindamycin AdvReac Diarrhea Verified 07/21/21 08:31 hydrochlorothiazide AdvReac Dizziness Verified 07/21/21 08:31 ropinirole [From Requip] AdvReac Dizziness Verified 07/21/21 08:31 simvastatin [From Zocor] AdvReac Muscle Pain Verified 07/21/21 08:31 Physical Exam Vitals: Vital Signs Temp Pulse Resp BP Pulse Ox 07/21/21 06:55 98.2 F 88 16 141/70 97 07/21/21 05:36 98.1 F 72 17 139/7 98 07/21/21 04:44 98.2 F 82 17 149/72 98 07/21/21 04:14 98.1 F 81 17 147/75 98 07/21/21 04:04 98.1 F 95 15 146/76 100 07/21/21 02:43 84 20 146/78 97 07/21/21 00:44 98.0 F 87 17 131/78 96 Intake and Output 07/20/21 07/21/21 07/21/21 22:59 06:59 14:59 Intake Total 277 Balance 277 Intake: Blood Product 277 Rc Pheresis As-3 Unit 277 [id number] Other: Weight 63.049 kg GENERAL: The patient is alert and oriented x3, not in any acute distress. Well developed, well nourished. HEENT: Pupils are round and equally reacting to light. EOMI. No scleral icterus. No conjunctival pallor. Normocephalic, atraumatic. No pharyngeal erythema. No thyromegaly. CARDIOVASCULAR: S1 and S2 present. No murmurs, rubs, or gallops. PULMONARY: Chest is clear to auscultation, no wheezing or crackles. ABDOMEN: Soft, nontender, nondistended, normoactive bowel sounds. No palpable organomegaly. MUSCULOSKELETAL: No joint swelling or deformity. EXTREMITIES: No cyanosis, clubbing, or pedal edema. NEUROLOGICAL: Gross neurological examination did not reveal any focal deficits. SKIN: No rashes. No petechiae Results CBC & Chem 7: 07/21/21 13:35 07/21/21 00:58 Labs: Abnormal Lab Results - Last 24 Hours (Table) 07/21/21 07/21/21 07/21/21 Range/Units 00:58 00:58 00:58 RBC 2.79 L (3.80-5.40) m/uL Hgb 6.6 L* (11.4-16.0) gm/dL Hct 22.2 L (34.0-46.0) % MCV 79.4 L (80.0-100.0) fL MCH 23.5 L (25.0-35.0) pg MCHC 29.6 L (31.0-37.0) g/dL RDW 16.9 H (11.5-15.5) % Sodium 133 L (137-145) mmol/L Chloride 96 L (98-107) mmol/L Glucose 122 H (74-99) mg/dL Crossmatch See Detail Assessment and Plan Assessment: Anemia with low hemoglobin, possible GI bleed Hypertension Hyperlipidemia History of osteoarthritis and chronic back pain History of umbilical hernia Plan: This is a pleasant 89 years old female presents with low hemoglobin, rule out GI bleed. Check anemia workup Continue with Protonix Avoid NSAIDs or blood thinners Surgical team consult recommended EGD/colonoscopy on Friday Continue gentle hydration Labs and medication were reviewed.. Continue same treatment. Continue with symptomatic treatment. Resume home medication. Monitor lytes and vitals. DVT and GI prophylaxis. Further recommendations depends on the clinical course of the patient DVT prophylaxis: no Subcutaneous heparin due to suspected GI bleed GI Prophylaxis: Ppi PT/OT: Pending Prognosis is guarded
[2021-07-21] MEDS: traMADol 50 MG TAB PO PRN (19:40)
[2021-07-21 19:59] LABS: Anisocytosis Slight; HCT 26.8 % (34.0-46.0); HGB 8.1 gm/dL (11.4-16.0); Hypochromasia Marked; MCH 24.6 pg (25.0-35.0); MCHC 30.4 g/dL (31.0-37.0); MCV 81.1 fL (80.0-100.0); Mean Platelet Volume 7.8; Platelet Count 325 k/uL (150-450); Poikilocytosis Moderate; RBC 3.31 m/uL (3.80-5.40)
[2021-07-21] MEDS ORDERED: METOPROLOL TARTRATE 25 MG TAB PO STA (21:04)
[2021-07-22] MEDS: traMADol 50 MG TAB PO PRN ×3 (01:26→20:44)
[2021-07-22 02:27] LABS: Anisocytosis Slight; HCT 25.9 % (34.0-46.0); HGB 7.6 gm/dL (11.4-16.0); Hypochromasia Marked; MCH 23.9 pg (25.0-35.0); MCHC 29.2 g/dL (31.0-37.0); MCV 81.8 fL (80.0-100.0); Mean Platelet Volume 7.7; Platelet Count 355 k/uL (150-450); Poikilocytosis Moderate; RBC 3.16 m/uL (3.80-5.40); WBC 6.9 k/uL (3.8-10.6)
[2021-07-22] MEDS: PANTOPRAZOLE 40 MG/10 ML VIAL IVP SCH (09:02)
[2021-07-22] MEDS ORDERED: PEG 3350-NA SULF,BICARB,CL/KCL 4,000 ML BOTTLE PO ONE (10:30)
--- NOTE | 2021-07-22 10:45 | P.PN ---
Subjective This is a pleasant 89 years old female with past medical history Hyperlipidemia, Hypertension, Osteoarthritis , chronic back pain, umbilical hernia Patient presents with abnormal lab, she got a call from her PCP to go to the hospital for low hemoglobin. Patient went to see her doctor for routine physical exam while she is asymptomatic but only she's been feeling generalized weakness for a few days, her doctor call her today and ask her to come to emergency room because of low hemoglobin. She states she did notice bleeding from anywhere, her stool color is brown as usual. However records indicate that she has some GI bleed about 2 weeks ago. Denies chest pain or dyspnea. No coughing. No vomiting. No abdominal pain. No change in urine or bowel habits. No fever. No hepatic/dizziness. No weakness or numbness. She denies smoking, alcohol or illicit tracts. Vitals are stable and blood pressure is stable. Labs show low hemoglobin 6.6 with previous reading was more than 10 few months ago. Platelet count normal INR, BMP and liver enzymes are unremarkable. Troponin is negative. Occult blood in the stool is negative. Haskins virus not detected. EKG showing normal sinus rhythm at 82 BPM with no significant ST-T changes 07/22/2021 Presents with anemia suspected secondary to GI bleed. She received one unit of blood transfusion and her hemoglobin improved 6.6 up to 7.6 this morning. Patient denies Dizziness or lightheadedness, no evidence of blood per stool, no bleeding from anywhere else per report by patient. Hemodynamically stable Case and the planned for EGD/colonoscopy tomorrow Objective - Vital Signs Vital signs: Vital Signs Temp 97.9 F 07/22/21 07:29 Pulse 100 07/22/21 07:29 Resp 18 07/22/21 07:29 BP 158/72 07/22/21 07:29 Pulse Ox 97 07/22/21 07:29 Intake & Output 07/21/21 07/22/21 07/22/21 18:59 06:59 18:59 Weight 63.049 kg Other: Voiding Method Bedside Commode Bedside Commode # Voids 3 8 # Bowel Movements 2 - Exam GENERAL: The patient is alert and oriented x3, not in any acute distress. Well developed, well nourished. HEENT: Pupils are round and equally reacting to light. EOMI. No scleral icterus. No conjunctival pallor. Normocephalic, atraumatic. No pharyngeal erythema. No thyromegaly. CARDIOVASCULAR: S1 and S2 present. No murmurs, rubs, or gallops. PULMONARY: Chest is clear to auscultation, no wheezing or crackles. ABDOMEN: Soft, nontender, nondistended, normoactive bowel sounds. No palpable organomegaly. MUSCULOSKELETAL: No joint swelling or deformity. EXTREMITIES: No cyanosis, clubbing, or pedal edema. NEUROLOGICAL: Gross neurological examination did not reveal any focal deficits. SKIN: No rashes. no petechiae. - Labs CBC & Chem 7: 07/22/21 02:04 07/21/21 00:58 Labs: Abnormal Lab Results - Last 24 Hours (Table) 07/21/21 07/21/21 07/21/21 Range/Units 00:58 13:35 19:51 RBC 3.12 L 3.31 L (3.80-5.40) m/uL Hgb 7.9 L 8.1 L (11.4-16.0) gm/dL Hct 25.3 L 26.8 L (34.0-46.0) % MCH 24.6 L (25.0-35.0) pg MCHC 30.4 L (31.0-37.0) g/dL RDW 16.7 H 17.0 H (11.5-15.5) % Iron 17 L (50-170) ug/dL TIBC 482 H (228-460) ug/dL % Saturation 3.43 L (12.00-45.00) 07/22/21 Range/Units 02:04 RBC 3.16 L (3.80-5.40) m/uL Hgb 7.6 L (11.4-16.0) gm/dL Hct 25.9 L (34.0-46.0) % MCH 23.9 L (25.0-35.0) pg MCHC 29.2 L (31.0-37.0) g/dL RDW 17.0 H (11.5-15.5) % Iron (50-170) ug/dL TIBC (228-460) ug/dL % Saturation (12.00-45.00) Assessment and Plan Assessment: Anemia with low hemoglobin, possible GI bleed Hypertension Hyperlipidemia History of osteoarthritis and chronic back pain History of umbilical hernia Plan: This is a pleasant 89 years old female presents with low hemoglobin, rule out GI bleed. Check anemia workup Continue with Protonix Avoid NSAIDs or blood thinners Surgical team consult recommended EGD/colonoscopy on Friday Continue gentle hydration Labs and medication were reviewed.. Continue same treatment. Continue with symptomatic treatment. Resume home medication. Monitor lytes and vitals. DVT and GI prophylaxis. Further recommendations depends on the clinical course of the patient DVT prophylaxis: no Subcutaneous heparin due to suspected GI bleed GI Prophylaxis: Ppi PT/OT: Pending Prognosis is guarded
--- NOTE | 2021-07-22 12:04 | P.GSCN ---
History of Present Illness Consult date: 07/22/21 Reason for Consult: GI bleed History of present illness: This is an 89-year-old female with history of intermittent GI bleed. I been asked see her regarding colonoscopy and EGD. Past Medical History Past Medical History: Hyperlipidemia, Hypertension, Osteoarthritis (OA) Additional Past Medical History / Comment(s): UTI, skin cancer, vulvadenia, chronic back pain, umbilical hernia History of Any Multi-Drug Resistant Organisms: None Reported Past Surgical History: No Surgical Hx Reported Additional Past Surgical History / Comment(s): skin CA removal from forehead and nose Past Anesthesia/Blood Transfusion Reactions: No Reported Reaction Past Psychological History: No Psychological Hx Reported Smoking Status: Never smoker Past Alcohol Use History: None Reported Past Drug Use History: None Reported Medications and Allergies Home Medications Medication Instructions Recorded Confirmed Type Amitriptyline HCl 40 mg PO DAILY@1800 06/08/20 07/21/21 History Ergocalciferol (Vitamin D2) 1,250 mcg PO MO 06/08/20 07/21/21 History [Drisdol (50,000 Iu)] Losartan Potassium 50 mg PO DAILY 06/08/20 07/21/21 History Pantoprazole Sodium [Protonix] 40 mg PO DAILY #30 tablet.dr 09/21/20 07/21/21 Rx traMADol HCL 50 mg PO Q4H 03/28/21 07/21/21 History Aspirin 162 mg PO DAILY #30 tab 04/02/21 07/21/21 Rx Metoprolol Succinate (ER) [Toprol 25 mg PO DAILY 07/21/21 07/21/21 History Xl] Zinc 50 mg PO DAILY 07/21/21 07/21/21 History Allergies Allergy/AdvReac Type Severity Reaction Status Date / Time cephalexin [From Keflex] Allergy Itching Verified 07/21/21 08:31 iodine Allergy Unknown Verified 07/21/21 08:31 nystatin Allergy Rash/Hives Verified 07/21/21 08:31 Penicillins Allergy Swelling Verified 07/21/21 08:31 pregabalin [From Lyrica] Allergy Blurred Verified 07/21/21 08:31 Vision sulfamethoxazole Allergy Unknown Verified 07/21/21 08:31 [From Bactrim] triamcinolone [From Kenalog] Allergy Rash/Hives Verified 07/21/21 08:31 trimethoprim [From Bactrim] Allergy Unknown Verified 07/21/21 08:31 clindamycin AdvReac Diarrhea Verified 07/21/21 08:31 hydrochlorothiazide AdvReac Dizziness Verified 07/21/21 08:31 ropinirole [From Requip] AdvReac Dizziness Verified 07/21/21 08:31 simvastatin [From Zocor] AdvReac Muscle Pain Verified 07/21/21 08:31 Surgical - Exam Vital Signs Temp Pulse Resp BP Pulse Ox 98.0 F 87 17 131/78 96 07/21/21 00:44 07/21/21 00:44 07/21/21 00:44 07/21/21 00:44 07/21/21 00:44 - General well developed, well nourished, no distress - Eyes PERRL - ENT normal pinna - Neck no masses - Respiratory normal expansion - Cardiovascular Rhythm: regular - Abdomen Abdomen: soft, non tender Results - Labs 07/22/21 02:04 07/21/21 00:58 Abnormal Lab Results - Last 24 Hours (Table) 07/21/21 07/21/21 07/21/21 Range/Units 00:58 13:35 19:51 RBC 3.12 L 3.31 L (3.80-5.40) m/uL Hgb 7.9 L 8.1 L (11.4-16.0) gm/dL Hct 25.3 L 26.8 L (34.0-46.0) % MCH 24.6 L (25.0-35.0) pg MCHC 30.4 L (31.0-37.0) g/dL RDW 16.7 H 17.0 H (11.5-15.5) % Iron 17 L (50-170) ug/dL TIBC 482 H (228-460) ug/dL % Saturation 3.43 L (12.00-45.00) 07/22/21 Range/Units 02:04 RBC 3.16 L (3.80-5.40) m/uL Hgb 7.6 L (11.4-16.0) gm/dL Hct 25.9 L (34.0-46.0) % MCH 23.9 L (25.0-35.0) pg MCHC 29.2 L (31.0-37.0) g/dL RDW 17.0 H (11.5-15.5) % Iron (50-170) ug/dL TIBC (228-460) ug/dL % Saturation (12.00-45.00) Assessment and Plan Assessment: History of GI bleed. We'll perform EGD and colonoscopy in the a.m.
[2021-07-22] MEDS: AMITRIPTYLINE HCL 10 MG TAB PO SCH (16:56)
[2021-07-22] MEDS: LOSARTAN 50 MG TAB PO SCH (20:44)
[2021-07-22] MEDS: METOPROLOL SUCCINATE (ER) 25 MG TAB.ER.24H PO SCH (20:44)
[2021-07-23] MEDS: LOSARTAN 50 MG TAB PO SCH (08:16)
[2021-07-23] MEDS: METOPROLOL SUCCINATE (ER) 25 MG TAB.ER.24H PO SCH (08:16)
[2021-07-23] MEDS: PANTOPRAZOLE 40 MG/10 ML VIAL IVP SCH (08:16)
[2021-07-23 09:07] LABS: Basophils # (A) 0.04 X 10*3/uL (0.00-0.10); Basophils % (A) 0.8 %; Eosinophils # (A) 0.03 X 10*3/uL (0.04-0.35); Eosinophils % (A) 0.6 %; HCT 26.3 % (37.2-46.3); HGB 7.7 g/dL (12.0-15.0); Immature Grans, Automated 0.4 %; Lymphocytes # (A) 1.87 X 10*3/uL (0.90-5.00); MCH 23.3 pg (27.0-32.0); MCHC 29.3 g/dL (32.0-37.0); MCV 79.5 fL (80.0-97.0); Mean Platelet Volume 10.3 fL (9.5-12.2); Monocytes # (A) 0.53 X 10*3/uL (0.20-1.00); Monocytes % (A) 10.5 %; NRBC Per 100 WBC 0 /100 WBCS (0.0-0.0); Neutrophils # (A) 2.56 X 10*3/uL (1.80-7.70); Neutrophils % (A) 50.7 %; Platelet Count 372 X 10*3/uL (140-440); RBC 3.31 X 10*6/uL (4.10-5.20); RDW 17.6 % (11.5-14.5); WBC 5.05 X 10*3/uL (4.50-10.00)
[2021-07-23] MEDS ORDERED: LIDOCAINE 1% INJ 10MG/ML (20 ML MDV) ONE (10:42)
[2021-07-23] MEDS ORDERED: PROPOFOL 10 MG/ML 20 ML VIAL IV ONE (10:42)
[2021-07-23 10:49] VITALS: RESP 18
[2021-07-23] MEDS ORDERED: SODIUM CHLORIDE 0.9% 500 ML 500 ML IV ONE (10:51)
[2021-07-23] MEDS ORDERED: SODIUM FERRIC GLUCONAT-SUCROSE 125 MG in SODIUM CHLORIDE 0.9% 100 ML IVPB ONE (11:00)
--- NOTE | 2021-07-23 11:18 | P.OP ---
Date of Procedure: 07/23/21 Preoperative Diagnosis: GI bleed Postoperative Diagnosis: Antral gastritis Large paraesophageal hiatal hernia Mild esophagitis External hemorrhoids Diverticulosis Procedure(s) Performed: EGD Colonoscopy Anesthesia: MAC Surgeon: Macario Vang Pathology: other (Antrum, esophagus) Condition: stable Disposition: PACU Description of Procedure: The patient's placed on the endoscopy table in the lateral position. She received IV sedation. The gastroscope placed oropharynx passed in the esophagus into the stomach. Scope was then placed through the pylorus. The first and second portion of the duodenum appeared normal. The scope was then brought back the antrum this appeared mildly inflamed. A biopsies performed. Scope was then retroflexed. The patient had a large paraesophageal hernia. Approximately 30% of the stomach appeared to be in the patient's chest. The GE junction was at 36 cm. The distal esophagus was mildly inflamed. A biopsies performed. The proximal esophagus appeared normal. The scope was withdrawn for patient. Next digital rectal exam was performed. This revealed external hemorrhoids. The flexible colonoscope was then placed patient anus and passed throughout the entire colon. The ileocecal valve was visualized. The cecum, ascending and transverse colon appeared normal. The descending colon appeared normal. In the sigmoid colon there is extensive diverticular changes. The scope was then brought back the rectum and this appeared normal. Scope was brought to anus and internal and external hemorrhoids are noted. There is no evidence of any acute GI bleed. His presumed patient may have had chronic bleeding from her large paraesophageal hernia.
[2021-07-23 15:54] VITALS: BP 123/58; PULSE 91; TEMP 98.6
== END 2021-07-23 16:35 | disposition hospice, home (50) | DRG 392 ==
LOC: EC 00:31 → 5NMEDONC 04:49 → 4SSUR 12:14
PROVIDERS: ADMIT Internal Medicine; ATTEND Internal Medicine
PROC: 30233N1 Transfusion of Nonautologous Red Blood Cells into Peripheral Vein, Percutaneous Approach (ICD-10-PCS; 2021-07-21)
PROC: 0DB78ZX Excision of Stomach, Pylorus, Via Natural or Artificial Opening Endoscopic, Diagnostic (ICD-10-PCS; principal; 2021-07-23 08:35)
PROC: 0DJD8ZZ Inspection of Lower Intestinal Tract, Via Natural or Artificial Opening Endoscopic (ICD-10-PCS; principal; 2021-07-23 08:35)
PROC: 0DB58ZX Excision of Esophagus, Via Natural or Artificial Opening Endoscopic, Diagnostic (ICD-10-PCS; principal; 2021-07-23 08:35)
DX: K44.9 Diaphragmatic hernia without obstruction or gangrene (principal); D64.9 Anemia, unspecified; E78.5 Hyperlipidemia, unspecified; I10 Essential (primary) hypertension; K20.90 Esophagitis, unspecified without bleeding; K29.70 Gastritis, unspecified, without bleeding; K57.90 Diverticulosis of intestine, part unspecified, without perforation or abscess without bleeding; K64.4 Residual hemorrhoidal skin tags; Z79.82 Long term (current) use of aspirin; Z79.899 Other long term (current) drug therapy; M54.9 Dorsalgia, unspecified; Z85.828 Personal history of other malignant neoplasm of skin; G89.29 Other chronic pain; Z20.822 Contact with and (suspected) exposure to COVID-19; Z51.5 Encounter for palliative care; Z87.440 Personal history of urinary (tract) infections; M19.90 Unspecified osteoarthritis, unspecified site; Z98.890 Other specified postprocedural states; Z88.1 Allergy status to other antibiotic agents; Z88.0 Allergy status to penicillin; Z88.2 Allergy status to sulfonamides; Z88.8 Allergy status to other drugs, medicaments and biological substances
CPT/HCPCS: 36415; 36430; 43239; 45378; 80053; 82272; 82306; 82607; 82728; 82746; 83036; 83540; 83550; 84443; 84484; 85025; 85027; 85610; 85730; 86850; 86900; 86901; 86920; 87635; 88305; 93005; 99285

== ENCOUNTER 2021-09-19 16:56 | Emergency (ER) | payer MEDICARE, BC ==
[2021-09-19 18:17] LABS: Partial Thromboplastin Time 22.8 sec (22.0-30.0); Prothrombin Time 10.6 sec (9.0-12.0)
[2021-09-19 18:20] LABS: ALT 14 U/L (4-34); African American GFR (CKD) >90 (>60 ml/min/1.73 sqM); Albumin 3.7 g/dL (3.5-5.0); Anion Gap 5 mmol/L; Anisocytosis Slight; Basophils % (A) 1 %; Blood Urea Nitrogen 12 mg/dL (7-17); Calcium 8.6 mg/dL (8.4-10.2); Carbon Dioxide 30 mmol/L (22-30); Chloride 97 mmol/L (98-107); Eosinophils # (A) 0.1 k/uL (0-0.7); Eosinophils % (A) 1 %; Glucose 111 mg/dL (74-99); HCT 22.3 % (34.0-46.0); Hypochromasia Marked; Lymphocytes # (A) 1.8 k/uL (1.0-4.8); Lymphocytes % (A) 36 %; MCH 24.2 pg (25.0-35.0); MCHC 29.4 g/dL (31.0-37.0); MCV 82.5 fL (80.0-100.0); Mean Platelet Volume 6.9; Microcytosis Slight; Monocytes # (A) 0.3 k/uL (0-1.0); Monocytes % (A) 6 %; Neutrophils # (A) 2.7 k/uL (1.3-7.7); Neutrophils % (A) 53 %; Non-African American GFR(CKD) 85 (>60 ml/min/1.73 sqM); Platelet Count 388 k/uL (150-450); RBC 2.71 m/uL (3.80-5.40); RDW 19.2 % (11.5-15.5); Sodium 132 mmol/L (137-145); Total Bilirubin 0.7 mg/dL (0.2-1.3); Total Protein 6.8 g/dL (6.3-8.2); WBC 5.1 k/uL (3.8-10.6)
--- NOTE | 2021-09-19 18:23 | ED ---
General Adult HPI - General Chief complaint: Recheck/Abnormal Lab/Rx Stated complaint: Low Hemoglobin Time Seen by Provider: 09/19/21 17:35 Source: patient, family, EMS, RN notes reviewed, old records reviewed Mode of arrival: EMS Limitations: no limitations - History of Present Illness Initial comments: This is an 89-year-old female who presents emergency Department with extensive heart history according to the daughter who brought her into the patient is on hospice. Patient occasionally becomes anemic and she has come in for a blood transfusion and she is usually could go home after that. Patient herself has no complaints except being a little bit tired. Patient denies shortness of breath or chest pain. Patient denies any palpitations. Patient denies any black or bloody stools. Patient denies any recent fever chills or cough. - Related Data Home Medications Medication Instructions Recorded Confirmed Amitriptyline HCl 40 mg PO DAILY@1800 06/08/20 07/21/21 Ergocalciferol (Vitamin D2) 1,250 mcg PO MO 06/08/20 07/21/21 [Drisdol (50,000 Iu)] Losartan Potassium 50 mg PO DAILY 06/08/20 07/21/21 traMADol HCL 50 mg PO Q4H 03/28/21 07/21/21 Metoprolol Succinate (ER) [Toprol 25 mg PO DAILY 07/21/21 07/21/21 XL] Zinc 50 mg PO DAILY 07/21/21 07/21/21 Previous Rx's Medication Instructions Recorded Pantoprazole Sodium [Protonix] 40 mg PO DAILY #30 tablet. 09/21/20 Aspirin 162 mg PO DAILY #30 tab 04/02/21 Allergies Allergy/AdvReac Type Severity Reaction Status Date / Time cephalexin [From Keflex] Allergy Itching Verified 09/19/21 17:31 iodine Allergy Unknown Verified 09/19/21 17:31 nystatin Allergy Rash/Hives Verified 09/19/21 17:31 Penicillins Allergy Swelling Verified 09/19/21 17:31 pregabalin [From Lyrica] Allergy Blurred Verified 09/19/21 17:31 Vision sulfamethoxazole Allergy Unknown Verified 09/19/21 17:31 [From Bactrim] triamcinolone [From Kenalog] Allergy Rash/Hives Verified 09/19/21 17:31 trimethoprim [From Bactrim] Allergy Unknown Verified 09/19/21 17:31 clindamycin AdvReac Diarrhea Verified 09/19/21 17:31 hydrochlorothiazide AdvReac Dizziness Verified 09/19/21 17:31 ropinirole [From Requip] AdvReac Dizziness Verified 09/19/21 17:31 simvastatin [From Zocor] AdvReac Muscle Pain Verified 09/19/21 17:31 Review of Systems ROS Statement: Those systems with pertinent positive or pertinent negative responses have been documented in the HPI. ROS Other: All systems not noted in ROS Statement are negative. Past Medical History Past Medical History: Hyperlipidemia, Hypertension, Osteoarthritis (OA) Additional Past Medical History / Comment(s): UTI, skin cancer, vulvadenia, chronic back pain, umbilical hernia History of Any Multi-Drug Resistant Organisms: None Reported Past Surgical History: No Surgical Hx Reported Additional Past Surgical History / Comment(s): skin CA removal from forehead and nose Past Anesthesia/Blood Transfusion Reactions: No Reported Reaction Past Psychological History: No Psychological Hx Reported Smoking Status: Never smoker Past Alcohol Use History: None Reported Past Drug Use History: None Reported General Exam - General Exam Comments Initial Comments: GENERAL: Patient is well-developed and well-nourished. Patient is nontoxic and well- hydrated and is in no acute distress. ENT: Neck is soft and supple. No significant lymphadenopathy is noted. Oropharynx is clear. Moist mucous membranes. Neck has full range of motion without eliciting any pain. EYES: The sclera were anicteric and conjunctiva were pink and moist. Extraocular movements were intact and pupils were equal round and reactive to light. Eyelids were unremarkable. PULMONARY: Unlabored respirations. Good breath sounds bilaterally. No audible rales rhonchi or wheezing was noted. CARDIOVASCULAR: There is a regular rate and rhythm without any murmurs gallops or rubs. ABDOMEN: Soft and nontender with normal bowel sounds. SKIN: Skin is clear with no lesions or rashes and otherwise unremarkable. NEUROLOGIC: Patient is alert and oriented x3. Cranial nerves II through XII are grossly intact. Motor and sensory are also intact. Normal speech, volume and content. Symmetrical smile. MUSCULOSKELETAL: Normal extremities with adequate strength and full range of motion. No lower extremity swelling or edema. No calf tenderness. LYMPHATICS: No significant lymphadenopathy is noted PSYCHIATRIC: Normal psychiatric evaluation. Limitations: no limitations Course Vital Signs 09/19/21 17:32 Temperature 97.8 F Pulse Rate 90 Respiratory 18 Rate Blood Pressure 153/78 O2 Sat by Pulse 97 Oximetry Medical Decision Making - Medical Decision Making According to the daughter. Her just to get a blood transfusion per the doctor and then be discharged back home. Patient received one unit of packed red blood cells - Lab Data Result diagrams: 09/19/21 17:39 09/19/21 17:39 Lab Results 09/19/21 09/19/21 09/19/21 Range/Units 17:39 17:39 17:39 WBC 5.1 (3.8-10.6) k/uL RBC 2.71 L (3.80-5.40) m/uL Hgb 6.6 L* (11.4-16.0) gm/dL Hct 22.3 L (34.0-46.0) % MCV 82.5 (80.0-100.0) fL MCH 24.2 L (25.0-35.0) pg MCHC 29.4 L (31.0-37.0) g/dL RDW 19.2 H (11.5-15.5) % Plt Count 388 (150-450) k/uL MPV 6.9 Neutrophils % 53 % Lymphocytes % 36 % Monocytes % 6 % Eosinophils % 1 % Basophils % 1 % Neutrophils # 2.7 (1.3-7.7) k/uL Lymphocytes # 1.8 (1.0-4.8) k/uL Monocytes # 0.3 (0-1.0) k/uL Eosinophils # 0.1 (0-0.7) k/uL Basophils # 0.0 (0-0.2) k/uL Hypochromasia Marked Anisocytosis Slight Microcytosis Slight PT 10.6 (9.0-12.0) sec INR 1.0 (<1.2) APTT 22.8 (22.0-30.0) sec Sodium 132 L (137-145) mmol/L Potassium 4.6 (3.5-5.1) mmol/L Chloride 97 L (98-107) mmol/L Carbon Dioxide 30 (22-30) mmol/L Anion Gap 5 mmol/L BUN 12 (7-17) mg/dL Creatinine 0.53 (0.52-1.04) mg/dL Est GFR (CKD-EPI)AfAm >90 (>60 ml/min/1.73 sqM) Est GFR (CKD-EPI)NonAf 85 (>60 ml/min/1.73 sqM) Glucose 111 H (74-99) mg/dL Calcium 8.6 (8.4-10.2) mg/dL Total Bilirubin 0.7 (0.2-1.3) mg/dL AST 35 (14-36) U/L ALT 14 (4-34) U/L Alkaline Phosphatase 86 (38-126) U/L Total Protein 6.8 (6.3-8.2) g/dL Albumin 3.7 (3.5-5.0) g/dL Crossmatch 09/19/21 Range/Units 17:39 WBC (3.8-10.6) k/uL RBC (3.80-5.40) m/uL Hgb (11.4-16.0) gm/dL Hct (34.0-46.0) % MCV (80.0-100.0) fL MCH (25.0-35.0) pg MCHC (31.0-37.0) g/dL RDW (11.5-15.5) % Plt Count (150-450) k/uL MPV Neutrophils % % Lymphocytes % % Monocytes % % Eosinophils % % Basophils % % Neutrophils # (1.3-7.7) k/uL Lymphocytes # (1.0-4.8) k/uL Monocytes # (0-1.0) k/uL Eosinophils # (0-0.7) k/uL Basophils # (0-0.2) k/uL Hypochromasia Anisocytosis Microcytosis PT (9.0-12.0) sec INR (<1.2) APTT (22.0-30.0) sec Sodium (137-145) mmol/L Potassium (3.5-5.1) mmol/L Chloride (98-107) mmol/L Carbon Dioxide (22-30) mmol/L Anion Gap mmol/L BUN (7-17) mg/dL Creatinine (0.52-1.04) mg/dL Est GFR (CKD-EPI)AfAm (>60 ml/min/1.73 sqM) Est GFR (CKD-EPI)NonAf (>60 ml/min/1.73 sqM) Glucose (74-99) mg/dL Calcium (8.4-10.2) mg/dL Total Bilirubin (0.2-1.3) mg/dL AST (14-36) U/L ALT (4-34) U/L Alkaline Phosphatase (38-126) U/L Total Protein (6.3-8.2) g/dL Albumin (3.5-5.0) g/dL Crossmatch See Detail Disposition Clinical Impression: Anemia Disposition: HOME SELF-CARE Condition: Good Instructions (If sedation given, give patient instructions): Anemia (ED) Is patient prescribed a controlled substance at d/c from ED?: No Referrals: Evita Roche MD [Primary Care Provider] - 1-2 days Time of Disposition: 18:38
[2021-09-19 18:26] LABS: HGB 6.6 gm/dL (11.4-16.0)
[2021-09-19 18:28] LABS: AST 35 U/L (14-36); Alkaline Phosphatase 86 U/L (38-126); Potassium 4.6 mmol/L (3.5-5.1)
[2021-09-19 21:10] VITALS: RESP 16
[2021-09-19 23:15] VITALS: BP 161/87; PULSE 98; TEMP 98.9
== END 2021-09-19 23:28 | disposition home or self-care (01) ==
LOC: EC 16:56
DX: D64.9 Anemia, unspecified (principal); E78.5 Hyperlipidemia, unspecified; I10 Essential (primary) hypertension; M19.90 Unspecified osteoarthritis, unspecified site; Z79.82 Long term (current) use of aspirin; Z88.1 Allergy status to other antibiotic agents; Z88.0 Allergy status to penicillin; Z88.2 Allergy status to sulfonamides; Z87.440 Personal history of urinary (tract) infections; Z85.828 Personal history of other malignant neoplasm of skin
CPT/HCPCS: 99284; 36430; 36415; 86900; 86901; 80053; 85025; 85610; 85730; 86850; 86920; P9016

== ENCOUNTER → 2021-11-27 | Outpatient (CLI) | payer MEDICARE, BC ==
[2021-11-27 13:13] LABS: Anisocytosis Slight; Basophils % (A) 0 %; Eosinophils % (A) 1 %; HGB 7.7 gm/dL (11.4-16.0); Hypochromasia Marked; Lymphocytes # (A) 2.2 k/uL (1.0-4.8); Lymphocytes % (A) 33 %; MCHC 30.7 g/dL (31.0-37.0); MCV 84.7 fL (80.0-100.0); Mean Platelet Volume 7.9; Monocytes # (A) 0.4 k/uL (0-1.0); Monocytes % (A) 6 %; Neutrophils # (A) 3.9 k/uL (1.3-7.7); Neutrophils % (A) 58 %; Platelet Count 338 k/uL (150-450); RBC 2.95 m/uL (3.80-5.40); RDW 17.8 % (11.5-15.5); WBC 6.7 k/uL (3.8-10.6)
[2021-11-27 17:55] LABS: African American GFR (CKD) 93.9 (60.0-200.0); Albumin 4.2 g/dL (3.8-4.9); Albumin/Globulin Ratio 1.81 (1.60-3.17); Anion Gap 15.3 mmol/L (10.00-18.00); BUN/Creat Ratio 16.36 Ratio (12.00-20.00); Blood Urea Nitrogen 9.8 mg/dL (9.0-27.0); Calcium 9.8 mg/dL (8.7-10.3); Carbon Dioxide 24.3 mmol/L (20.0-27.5); Ferritin 24.4 ng/mL (10.0-291.0); Globulin 2.3 g/dL (1.6-3.3); Potassium 4.3 mmol/L (3.5-5.5); Total Bilirubin 0.3 mg/dL (0.30-1.20); Total Protein 6.5 g/dL (6.2-8.2)
== END | disposition home or self-care (01) ==
LOC: LABWHC1 12:04
PROVIDERS: ATTEND Family Medicine
DX: D64.9 Anemia, unspecified (principal)
CPT/HCPCS: 36415; 80053; 82607; 82728; 82746; 83540; 85025